=== PATIENT | female | born 1935 | race Caucasian/White ===

== ENCOUNTER 2018-01-28 19:05 | Emergency (ER) | payer MEDICARE, BC ==
[~2018-01-28] VITALS: Ht 165.1 cm; Wt 62.1 kg
[~2018-01-28 19:05] MED LIST: ALPR.5 PO; AMIO200 PO; ASPI81EC PO; ATOR20 PO; BENZ100A PO; CLOP75 PO; CYCL0.05OP; Cymbalta60 MG; DESV50 PO; DIGO.25 PO; Dazidox10 MG PO; ELIQUIS5 MG PO; FAMO20 PO; IBUP400 PO; LISI5 PO; MAGOXI400 PO; METO100ER PO; METO25ER PO; METO50ER PO; OXYACE5T PO; OXYC10TA19; PATADAY; PROM25 PO; Percocet 10-321 EACH PO; Percocet 5-3251 EACH PO; Prozac20 MG; SIMV40 PO; Ultram50 MG PO; Vitamin D2000 UNIT PO; Zofran Odt4 MG SL; Zofran Odt8 MG SL
[2018-01-28] MEDS ORDERED: Levothyroxine200 MCG (19:23)
[2018-01-28] MEDS ORDERED: TORSE20 PO (19:23)
[2018-01-28] MEDS ORDERED: FLUO10 PO (19:24)
[2018-01-28] MEDS ORDERED: POTA10T PO (19:24)
[2018-01-28 19:33] LABS: BASOPHILS ABSOLUTE AUTO 0.04 K/mm3 (0.00-0.23); BASOPHILS PERCENT AUTO 1 % (0-2); EOSINOPHILS ABSOLUTE AUTO 0.07 K/mm3 (0.00-0.68); EOSINOPHILS PERCENT AUTO 1 % (0-6); Hemoglobin 11.8 g/dL (11.5-16.0); IMMATURE GRAN ABSOLUTE AUTO 0.03 K/mm3 (0.00-0.10); IMMATURE GRAN PERCENT AUTO 0 % (0-1); LYMPHOCYTES ABSOLUTE AUTO 0.78 K/mm3 (0.84-5.20); LYMPHOCYTES PERCENT AUTO 9 % (21-46); MONOCYTES PERCENT AUTO 7 % (4-13); Mean Corpuscular HGB 33.2 pg (26.0-34.0); Mean Corpuscular HGB Conc 32.8 g/dL (31.5-36.5); Mean Corpuscular Volume 101 fL (80-100); Mean Platelet Volume 9.6 fL (9.1-12.4); NEUTROPHILS ABSOLUTE AUTO 7.12 K/mm3 (1.96-9.15); NEUTROPHILS PERCENT AUTO 83 % (41-73); Platelet Count 204 K/mm3 (150-400); RDW Standard Deviation 49.3 fL (35.1-46.3); Red Blood Cell Count 3.55 M/mm3 (3.80-5.20); White Blood Cell Count 8.64 K/mm3 (4.00-11.30)
[2018-01-28 19:46] LABS: Source, Urine Clean Catch
[2018-01-28 19:52] LABS: Bilirubin, Urine Neg (Neg); Blood, Urine 5+ (Neg); Glucose Qualitative, Urine Neg (Neg); Ketones, Urine Neg (Neg); Leukocyte Esterase, Urine 3+ (Neg); Nitrite, Urine Neg (Neg); Protein, Urine 3+ (Neg); Specific Gravity, Urine 1.015 (1.003-1.022); Urobilinogen, Urine NORM (Normal)
[2018-01-28 20:00] LABS: Albumin, Blood 3.3 g/dL (3.4-5.0); Albumin/Globulin Ratio 0.9 (0.8-1.8); Bilirubin, Total 0.8 mg/dL (0.1-1.0); Bun/Creatinine Ratio 19.5 (12.0-20.0); Calcium, Blood 8.6 mg/dL (8.5-10.1); Creatinine, Blood 1.18 mg/dL (0.40-1.00); Globulin, Blood 3.6 g/dL (2.2-4.0); Potassium, Blood 4.1 mmol/L (3.5-5.5); Total Protein, Blood 6.9 g/dL (6.4-8.2)
[2018-01-28 20:03] LABS: Appearance, Urine Cloudy (Clear); Color, Urine Yellow (P-Yellow)
[2018-01-28 20:04] LABS: Bacteria Few /hpf; Red Blood Cells, Urine 25-50 /hpf (0-2); Squamous Epithelial Cells Rare /hpf (Few); White Blood Cells, Urine TNTC /hpf (0-5)
[2018-01-28] MEDS ORDERED: Cipro500 MG PO (20:40)
[2018-01-28] MEDS ORDERED: Zofran4 MG PO (20:40)
[2018-01-29] MEDS ORDERED: HYDR1TAB94 PO (04:08)
[2018-01-29] MEDS ORDERED: CYCL0.05OP BOTHEYES ×2 (17:50→17:51)
== END 2018-01-28 22:00 | disposition home or self-care (01) ==
LOC: ER 19:05
PROVIDERS: Internal Medicine
DX: N12 Tubulo-interstitial nephritis, not specified as acute or chronic (principal); Z88.8 Allergy status to other drugs, medicaments and biological substances; Z88.5 Allergy status to narcotic agent; Z79.899 Other long term (current) drug therapy; Z79.01 Long term (current) use of anticoagulants
CPT/HCPCS: 36415; 80053; 81001; 85025; 87077; 87086; 87186; 93005; 93010; 96374; 99284-25; J1956

== ENCOUNTER 2018-01-29 01:19 | Observation (INO) | payer MEDICARE, BC ==
[~2018-01-29] VITALS: Ht 165.1 cm; Wt 63.7 kg
[~2018-01-29 01:19] MED LIST changes: +Cipro500 MG PO; +FLUO10 PO; +Levothyroxine200 MCG; +POTA10T PO; +TORSE20 PO; +Zofran4 MG PO
[2018-01-29] MEDS ORDERED: HYDR1TAB94 PO (04:08)
[2018-01-29 05:36] LABS: Bun/Creatinine Ratio 16.8 (12.0-20.0); Creatinine, Blood 1.13 mg/dL (0.40-1.00); Potassium, Blood 4.1 mmol/L (3.5-5.5)
[2018-01-29] MEDS ORDERED: CYCL0.05OP BOTHEYES ×2 (17:50→17:51)
[2018-01-30 05:31] LABS: BASOPHILS ABSOLUTE AUTO 0.03 K/mm3 (0.00-0.23); BASOPHILS PERCENT AUTO 1 % (0-2); EOSINOPHILS ABSOLUTE AUTO 0.02 K/mm3 (0.00-0.68); EOSINOPHILS PERCENT AUTO 0 % (0-6); Hematocrit 35.2 % (33.0-51.0); Hemoglobin 11.6 g/dL (11.5-16.0); IMMATURE GRAN ABSOLUTE AUTO 0.03 K/mm3 (0.00-0.10); IMMATURE GRAN PERCENT AUTO 1 % (0-1); LYMPHOCYTES ABSOLUTE AUTO 0.47 K/mm3 (0.84-5.20); LYMPHOCYTES PERCENT AUTO 8 % (21-46); MONOCYTES ABSOLUTE AUTO 0.66 K/mm3 (0.16-1.47); MONOCYTES PERCENT AUTO 11 % (4-13); Mean Corpuscular Volume 100 fL (80-100); NEUTROPHILS ABSOLUTE AUTO 4.62 K/mm3 (1.96-9.15); NEUTROPHILS PERCENT AUTO 79 % (41-73); Platelet Count 170 K/mm3 (150-400); RDW Coefficient Variation 13.2 % (11.7-14.2); RDW Standard Deviation 48.8 fL (35.1-46.3); Red Blood Cell Count 3.52 M/mm3 (3.80-5.20); White Blood Cell Count 5.83 K/mm3 (4.00-11.30)
[2018-01-30 06:00] LABS: Albumin, Blood 2.7 g/dL (3.4-5.0); Anion Gap 9 mmol/L (6-16); Blood Urea Nitrogen 15 mg/dL (8-24); Bun/Creatinine Ratio 12.1 (12.0-20.0); CO2, Blood 24 mmol/L (21-32); Chloride, Blood 102 mmol/L (98-108); Creatinine, Blood 1.24 mg/dL (0.40-1.00); Glomerular Filtration Rate 44 (60-); Glucose, Blood 104 mg/dL (70-99); Phosphorus, Blood 2.7 mg/dL (2.5-4.9); Potassium, Blood 3.4 mmol/L (3.5-5.5); Sodium, Blood 135 mmol/L (136-145)
[2018-01-31] MEDS ORDERED: LEVSOD100 (10:39)
== END 2018-01-31 11:19 | disposition home or self-care (01) ==
LOC: ER 01:19 → MEDS 01:48 → ENPENDDIS 01-31 09:42 → MEDS 01-31 11:19
PROVIDERS: Family Medicine; Internal Medicine
DX: N12 Tubulo-interstitial nephritis, not specified as acute or chronic (principal); E87.2 Acidosis; E87.1 Hypo-osmolality and hyponatremia; E87.6 Hypokalemia; K21.9 Gastro-esophageal reflux disease without esophagitis; I48.91 Unspecified atrial fibrillation; M54.5 Low back pain; G89.29 Other chronic pain; I25.10 Atherosclerotic heart disease of native coronary artery without angina pectoris; I12.9 Hypertensive chronic kidney disease with stage 1 through stage 4 chronic kidney disease, or unspecified chronic kidney disease; N18.3 Chronic kidney disease, stage 3 (moderate); M19.90 Unspecified osteoarthritis, unspecified site; E03.9 Hypothyroidism, unspecified; F32.9 Major depressive disorder, single episode, unspecified; Z98.61 Coronary angioplasty status; Z79.899 Other long term (current) drug therapy; Z88.5 Allergy status to narcotic agent; Z88.8 Allergy status to other drugs, medicaments and biological substances; Z79.01 Long term (current) use of anticoagulants
CPT/HCPCS: 36415; 76770; 80048; 80069; 85025; 96361; 96365; 96366; 96375; 99284-25; G0378; J1956; J2405; J7030

== ENCOUNTER 2018-09-23 04:03 | Emergency (ER) | payer MEDICARE, BC ==
[~2018-09-23] VITALS: Ht 162.6 cm; Wt 62.6 kg
[~2018-09-23 04:03] MED LIST changes: +CYCL0.05OP BOTHEYES; +HYDR1TAB94 PO; +LEVSOD100
== END 2018-09-23 05:05 | disposition home or self-care (01) ==
LOC: ER 04:03
DX: S80.11XA Contusion of right lower leg, initial encounter (principal); W18.30XA Fall on same level, unspecified, initial encounter; Z88.8 Allergy status to other drugs, medicaments and biological substances; Z88.5 Allergy status to narcotic agent; Z79.899 Other long term (current) drug therapy; I48.91 Unspecified atrial fibrillation; I12.9 Hypertensive chronic kidney disease with stage 1 through stage 4 chronic kidney disease, or unspecified chronic kidney disease; N18.3 Chronic kidney disease, stage 3 (moderate); E03.9 Hypothyroidism, unspecified; F32.9 Major depressive disorder, single episode, unspecified
CPT/HCPCS: 73562-RT; 73610; 99283-25; A9270; A9270-GY

== ENCOUNTER 2018-11-08 15:35 | Inpatient (IN) | payer MEDICARE, BC ==
[~2018-11-08] VITALS: Ht 165.1 cm; Wt 62.5 kg
[~2018-11-08 15:35] MED LIST changes: -AMIO200 PO; +AMIODARONE HCL100 MG PO; -ATOR20 PO; -FLUO10 PO; +K-Dur 20 meq T20 MEQ PO; -LEVSOD100; +LEVSOD75 PO; +Lipitor20 MG PO; -POTA10T PO; +Prozac20 MG PO
[2018-11-08 15:57] LABS: BASOPHILS ABSOLUTE AUTO 0.04 K/mm3 (0.00-0.23); BASOPHILS PERCENT AUTO 0 % (0-2); EOSINOPHILS ABSOLUTE AUTO 0.06 K/mm3 (0.00-0.68); EOSINOPHILS PERCENT AUTO 1 % (0-6); Hematocrit 33.5 % (33.0-51.0); Hemoglobin 11.1 g/dL (11.5-16.0); IMMATURE GRAN ABSOLUTE AUTO 0.12 K/mm3 (0.00-0.10); IMMATURE GRAN PERCENT AUTO 1 % (0-1); LYMPHOCYTES ABSOLUTE AUTO 1.13 K/mm3 (0.84-5.20); LYMPHOCYTES PERCENT AUTO 9 % (21-46); MONOCYTES ABSOLUTE AUTO 0.95 K/mm3 (0.16-1.47); MONOCYTES PERCENT AUTO 8 % (4-13); Mean Corpuscular HGB 31.5 pg (26.0-34.0); Mean Corpuscular HGB Conc 33.1 g/dL (31.5-36.5); Mean Corpuscular Volume 95 fL (80-100); Mean Platelet Volume 9.3 fL (9.1-12.4); NEUTROPHILS ABSOLUTE AUTO 10.02 K/mm3 (1.96-9.15); NEUTROPHILS PERCENT AUTO 81 % (41-73); Platelet Count 556 K/mm3 (150-400); RDW Coefficient Variation 13.2 % (11.7-14.2); Red Blood Cell Count 3.52 M/mm3 (3.80-5.20); White Blood Cell Count 12.32 K/mm3 (4.00-11.30)
[2018-11-08 16:05] LABS: Source, Urine Catheter
[2018-11-08 16:20] LABS: Alanine Aminotransfer (ALT/SGP 40 U/L (12-78); Albumin, Blood 2.2 g/dL (3.4-5.0); Albumin/Globulin Ratio 0.6 (0.8-1.8); Alk Phos 184 U/L (50-136); Anion Gap 6 mmol/L (6-16); Aspartate Aminotrans (AST/SGOT 85 U/L (12-37); Blood Urea Nitrogen 10 mg/dL (8-24); Bun/Creatinine Ratio 11.6 (12.0-20.0); CO2, Blood 28 mmol/L (21-32); Calcium, Blood 8.4 mg/dL (8.5-10.1); Chloride, Blood 96 mmol/L (98-108); Creatinine, Blood 0.86 mg/dL (0.40-1.00); Globulin, Blood 3.9 g/dL (2.2-4.0); Glomerular Filtration Rate >60 (60-); Glucose, Blood 83 mg/dL (70-99); Potassium, Blood 4.2 mmol/L (3.5-5.5); Sodium, Blood 130 mmol/L (136-145); Total Protein, Blood 6.1 g/dL (6.4-8.2)
[2018-11-08 16:26] LABS: Bilirubin, Urine Neg (Neg); Blood, Urine 1+ (Neg); Glucose Qualitative, Urine Neg (Neg); Ketones, Urine 2+ (Neg); Leukocyte Esterase, Urine 3+ (Neg); Nitrite, Urine Neg (Neg); Protein, Urine 1+ (Neg); Specific Gravity, Urine 1.005 (1.003-1.022); Urobilinogen, Urine 4+ (Normal)
[2018-11-08 16:43] LABS: Appearance, Urine Hazy (Clear); Color, Urine Yellow (P-Yellow)
[2018-11-08 16:45] LABS: Bacteria Many /hpf; Squamous Epithelial Cells Mod /hpf (Few); White Blood Cells, Urine 25-50 /hpf (0-5)
[2018-11-08 20:15] LABS: International Normalized Ratio 1.22; Prothrombin Time Results 12.7 Sec (9.7-11.5)
[2018-11-08] MEDS ORDERED: Percocet 7.5-31 EACH PO (20:46)
[2018-11-09 05:28] LABS: BASOPHILS ABSOLUTE AUTO 0.07 K/mm3 (0.00-0.23); BASOPHILS PERCENT AUTO 1 % (0-2); EOSINOPHILS ABSOLUTE AUTO 0.17 K/mm3 (0.00-0.68); EOSINOPHILS PERCENT AUTO 1 % (0-6); Hematocrit 34.3 % (33.0-51.0); Hemoglobin 11.2 g/dL (11.5-16.0); IMMATURE GRAN PERCENT AUTO 1 % (0-1); LYMPHOCYTES ABSOLUTE AUTO 1.38 K/mm3 (0.84-5.20); LYMPHOCYTES PERCENT AUTO 11 % (21-46); MONOCYTES ABSOLUTE AUTO 1.18 K/mm3 (0.16-1.47); MONOCYTES PERCENT AUTO 10 % (4-13); Mean Corpuscular HGB 32.1 pg (26.0-34.0); Mean Corpuscular HGB Conc 32.7 g/dL (31.5-36.5); Mean Platelet Volume 9.3 fL (9.1-12.4); NEUTROPHILS PERCENT AUTO 76 % (41-73); Platelet Count 589 K/mm3 (150-400); RDW Coefficient Variation 13.2 % (11.7-14.2); RDW Standard Deviation 47.1 fL (35.1-46.3); Red Blood Cell Count 3.49 M/mm3 (3.80-5.20)
[2018-11-09 05:31] LABS: Mean Corpuscular Volume 98 fL (80-100)
--- NOTE | 2018-11-09 05:35 | NUR ---
NOC SHIFT SUMMARY PT IS IRRITABLE THOUGH LARGELY COOPERATIVE WITH CARE. ADMITTED FOR BILAT PNEUMONIA. LUNG SOUNDS DIMINISHED WITH CRACKLES IN BASES. ON 2LNC. VSS. VERY WEAK WITH AMBULATING AND NEEDS ASSISTANCE WITH TOILETING. NOT TIPICALLY ON OXYGEN AT HOME. LIVES AT [facility] WITH . MEDICATED FOR PAIN PER EMAR TO GOOD EFFECT. CURRENTLY APPEARS IN NO ACUTE DISTRESS. WILL CONTINUE TO MONITOR.
[2018-11-09 05:44] LABS: Anion Gap 8 mmol/L (6-16); Blood Urea Nitrogen 9 mg/dL (8-24); Bun/Creatinine Ratio 11.5 (12.0-20.0); CO2, Blood 24 mmol/L (21-32); Calcium, Blood 7.8 mg/dL (8.5-10.1); Chloride, Blood 103 mmol/L (98-108); Creatinine, Blood 0.79 mg/dL (0.40-1.00); Glomerular Filtration Rate >60 (60-); Glucose, Blood 80 mg/dL (70-99); Potassium, Blood 3.9 mmol/L (3.5-5.5); Sodium, Blood 135 mmol/L (136-145)
[2018-11-09] MEDS ORDERED: TORSE20 PO (16:10)
--- NOTE | 2018-11-09 17:46 | NUR ---
PT AOX4 COOPERATIVE OF CARE. PT HAS BEEN HAVING SOB WITH EXCERTION TODAY. THEN LATER IN THE DAY PT STATED SHE NEEDED HER DIURETIC. REVIEWED MEDS WITH COMPAIRED LIST TO EMAR. PT NEEDED HER TORESMIDE ON THE LIST. NOTIFIED DR MC AND LEFT MESSAGE OF FINDINGS. PT THEN HAS A SOB EPISODE AND RT WAS CALLED. O2 SAT WAS 82% RT GAVE BREATHING TREATMENT AND INCREASED O2 TO 5L. PT WAS THEN UP TO 92%. TORSEMIDE GIVEN WILL CONTINUE TO MONITOR.
--- NOTE | 2018-11-10 04:07 | NUR ---
NOC SHIFT SUMMARY PT ADMITTED FOR SEPSIS SECONDARY TO PNEUMONIA. SHE IS IRRITABLE THOUGH COOPERATIVE WITH CARE. AAOX4. RESP EVEN AND UNLABORED AT REST THOUGH SHE IS QUITE ACTIVITY INTOLERANT. MUST CATCH HER BREATH AT BED SIDE WHEN BEING HELPED UP TO THE COMODE. ON 2LNC NORMALLY NOT ON O2 AT HOME. PRESENTLY APPEARS TO BE SLEEPING AND IN NO ACUTE DISTRESS. WILL CONTINUE TO MONITOR.
[2018-11-10 05:07] LABS: BASOPHILS ABSOLUTE AUTO 0.06 K/mm3 (0.00-0.23); BASOPHILS PERCENT AUTO 1 % (0-2); EOSINOPHILS ABSOLUTE AUTO 0.26 K/mm3 (0.00-0.68); EOSINOPHILS PERCENT AUTO 3 % (0-6); Hematocrit 33.9 % (33.0-51.0); Hemoglobin 10.7 g/dL (11.5-16.0); IMMATURE GRAN ABSOLUTE AUTO 0.09 K/mm3 (0.00-0.10); IMMATURE GRAN PERCENT AUTO 1 % (0-1); LYMPHOCYTES ABSOLUTE AUTO 1.12 K/mm3 (0.84-5.20); LYMPHOCYTES PERCENT AUTO 11 % (21-46); MONOCYTES PERCENT AUTO 10 % (4-13); Mean Corpuscular HGB 31.6 pg (26.0-34.0); Mean Corpuscular HGB Conc 31.6 g/dL (31.5-36.5); Mean Corpuscular Volume 100 fL (80-100); Mean Platelet Volume 9.3 fL (9.1-12.4); NEUTROPHILS ABSOLUTE AUTO 7.86 K/mm3 (1.96-9.15); NEUTROPHILS PERCENT AUTO 76 % (41-73); Platelet Count 552 K/mm3 (150-400); RDW Coefficient Variation 13.3 % (11.7-14.2); RDW Standard Deviation 49.1 fL (35.1-46.3); Red Blood Cell Count 3.39 M/mm3 (3.80-5.20); White Blood Cell Count 10.39 K/mm3 (4.00-11.30)
[2018-11-10 05:39] LABS: Alanine Aminotransfer (ALT/SGP 32 U/L (12-78); Albumin, Blood 2.1 g/dL (3.4-5.0); Albumin/Globulin Ratio 0.6 (0.8-1.8); Alk Phos 169 U/L (50-136); Anion Gap 8 mmol/L (6-16); Aspartate Aminotrans (AST/SGOT 56 U/L (12-37); Bilirubin, Total 0.5 mg/dL (0.1-1.0); Blood Urea Nitrogen 9 mg/dL (8-24); Bun/Creatinine Ratio 10.6 (12.0-20.0); CO2, Blood 26 mmol/L (21-32); Calcium, Blood 7.8 mg/dL (8.5-10.1); Chloride, Blood 102 mmol/L (98-108); Creatinine, Blood 0.85 mg/dL (0.40-1.00); Globulin, Blood 3.7 g/dL (2.2-4.0); Glomerular Filtration Rate >60 (60-); Glucose, Blood 100 mg/dL (70-99); Potassium, Blood 3.6 mmol/L (3.5-5.5); Sodium, Blood 136 mmol/L (136-145); Total Protein, Blood 5.8 g/dL (6.4-8.2)
--- NOTE | 2018-11-10 17:34 | NUR ---
PT AOX4 AND COOPERATIVE OF CARE. PT HAS BEEN DOING BETTER TODAY. STILL GETTING SOB WITH MUCH EXCERTION. PT APPEARS TO BE FEELING BETTER. PT TALKING AND PLEASANT TODAY. DENIES ANY NEED FOR PAIN PILLS. WILL CONTINUE TO MONITOR.
--- NOTE | 2018-11-11 04:17 | NUR ---
NOC SHIFT SUMMARY PT ADMITTED FOR BILAT PNEUMONIA WITH SEPSIS. URINE CX SHOWES KLEBSIELLA UTI. SHE IS MUCH MORE PLEASANT WITH CARE THIS NIGHT. STILL ON 2LNC. TOOK A MELATONIN THIS EVENING AND FELL TO SLEEP. HAS SLEPT MUCH OF NIGHT. TREATED PER EMAR FOR PAIN. VSS. NO ACUTE CHANGES NOTED. THIS SHIFT. PT APPEARS IN NO ACUTE DISTRESS. WILL CONTINUE TO MONITOR.
[2018-11-11 05:56] LABS: Anion Gap 8 mmol/L (6-16); Blood Urea Nitrogen 11 mg/dL (8-24); Bun/Creatinine Ratio 12.3 (12.0-20.0); CO2, Blood 30 mmol/L (21-32); Calcium, Blood 7.4 mg/dL (8.5-10.1); Chloride, Blood 98 mmol/L (98-108); Creatinine, Blood 0.89 mg/dL (0.40-1.00); Glomerular Filtration Rate >60 (60-); Glucose, Blood 95 mg/dL (70-99); Phosphorus, Blood 3.8 mg/dL (2.5-4.9); Potassium, Blood 3.3 mmol/L (3.5-5.5); Sodium, Blood 136 mmol/L (136-145)
--- NOTE | 2018-11-11 14:15 | NUR ---
PT REQUIRING 1L PT DESATS TO MID 80S ON RA. PT ON 1L. PT NOW SATING IN THE 90S. WILL CONTINUE TO MONITOR.
--- NOTE | 2018-11-11 18:10 | NUR ---
SHIFT SUMMARY PROZAC ORDERED PER PT REQUEST. PT STATED IT IS TAKEN AT HOME. DR. MC ORDERED FOR PT. PT TITRATED TO 1L O2 VIA NC. PT DESATS TO MID 80S ON RA. NO OTHER CHANGES IN ASSESSMENT AT THIS TIME. VSS. WILL CONTINUE TO MONITOR UNTIL TURNOVER IS COMPLETE.
--- NOTE | 2018-11-12 04:56 | NUR ---
LOG RAFT WORKER SUMMARY NO ACUTE CHANGES THIS SHIFT. PT AAOX4 AND PLEASANT. STANDBY ASSIST TO BSC. PT REMAINS ON 1L O2 VIA NC. ENCOURAGED PT TO USE FLUTTER VALVE TO HELP HER COUGH UP SECRETIONS. VSS, WILL CONTINUE TO MONITOR.
[2018-11-12 05:39] LABS: Albumin, Blood 2.1 g/dL (3.4-5.0); Anion Gap 7 mmol/L (6-16); Blood Urea Nitrogen 14 mg/dL (8-24); Bun/Creatinine Ratio 14.8 (12.0-20.0); CO2, Blood 29 mmol/L (21-32); Calcium, Blood 7.8 mg/dL (8.5-10.1); Chloride, Blood 100 mmol/L (98-108); Creatinine, Blood 0.94 mg/dL (0.40-1.00); Glomerular Filtration Rate >60 (60-); Glucose, Blood 87 mg/dL (70-99); Phosphorus, Blood 3.9 mg/dL (2.5-4.9); Potassium, Blood 4.2 mmol/L (3.5-5.5); Sodium, Blood 136 mmol/L (136-145)
[2018-11-12] MEDS ORDERED: MELATONIN5 M1 PO (16:13)
[2018-11-12] MEDS ORDERED: ALBU90OI INH (16:14)
[2018-11-12] MEDS ORDERED: HIGH POTENCY P1 EACH PO (16:15)
[2018-11-12] MEDS ORDERED: CEFU500T30 PO (16:16)
[2018-11-12] MEDS ORDERED: AZIT500 PO (16:16)
--- NOTE | 2018-11-12 17:02 | NUR ---
PT DISCHARGED PT DISCHARGED AT 1700. PT IN STABLE CONTITION WITH VSS. PT INSTRUCTED ON DC INSTRUCTIONS & FOLLOW UP APPOINTMENTS. PT WHEELED OUT & DIRVEN HOME BY TRANSPORT. PT ON RA PRIOR TO DC & SATING IN THE 90S. NO OTHER CHANGES PRIOR TO DC.
[2018-11-13] MEDS ORDERED: DULO30 PO (18:51)
[2018-11-13] MEDS ORDERED: ELIQUIS5 M2 PO (18:53)
== END 2018-11-12 17:02 | disposition home or self-care (01) | DRG 871 ==
LOC: ER 15:35 → MEDS 17:55
PROVIDERS: Emergency Medicine; Internal Medicine; Physician Assistant; ADMIT Hospitalist
DX: A41.89 Other specified sepsis (principal); J96.01 Acute respiratory failure with hypoxia; J18.9 Pneumonia, unspecified organism; N39.0 Urinary tract infection, site not specified; E87.1 Hypo-osmolality and hyponatremia; R65.20 Severe sepsis without septic shock; B96.1 Klebsiella pneumoniae [K. pneumoniae] as the cause of diseases classified elsewhere; R74.0 Nonspecific elevation of levels of transaminase and lactic acid dehydrogenase [LDH]; E87.6 Hypokalemia; E03.9 Hypothyroidism, unspecified; E78.5 Hyperlipidemia, unspecified; I48.0 Paroxysmal atrial fibrillation; G89.4 Chronic pain syndrome; I10 Essential (primary) hypertension; I25.10 Atherosclerotic heart disease of native coronary artery without angina pectoris; I25.2 Old myocardial infarction; Z87.891 Personal history of nicotine dependence; Z88.8 Allergy status to other drugs, medicaments and biological substances; Z79.899 Other long term (current) drug therapy; Z95.5 Presence of coronary angioplasty implant and graft
CPT/HCPCS: 36415; 71046; 80048; 80053; 80069; 81001; 83605; 83880; 84484; 85025; 85610; 85730; 87040; 87077; 87086; 87186; 93005; 93010; 94640; 94667; 94760; 94761; 96365; 96375; 98960; 99285-25; A9270-GY; J0456; J0696; J2405; J7030; J7050; P9612

== ENCOUNTER 2018-11-13 16:41 | Inpatient (IN) | payer MEDICARE, BC ==
[~2018-11-13] VITALS: Ht 165.1 cm; Wt 63.0 kg
[~2018-11-13 16:41] MED LIST changes: +ALBU90OI INH; +AZIT500 PO; +CEFU500T30 PO; +HIGH POTENCY P1 EACH PO; +MELATONIN5 M1 PO; +Percocet 7.5-31 EACH PO
[2018-11-13 17:23] LABS: BASOPHILS ABSOLUTE AUTO 0.09 K/mm3 (0.00-0.23); BASOPHILS PERCENT AUTO 1 % (0-2); EOSINOPHILS ABSOLUTE AUTO 0.16 K/mm3 (0.00-0.68); EOSINOPHILS PERCENT AUTO 1 % (0-6); Hematocrit 36.1 % (33.0-51.0); Hemoglobin 11.7 g/dL (11.5-16.0); IMMATURE GRAN ABSOLUTE AUTO 0.06 K/mm3 (0.00-0.10); IMMATURE GRAN PERCENT AUTO 0 % (0-1); LYMPHOCYTES ABSOLUTE AUTO 1.38 K/mm3 (0.84-5.20); LYMPHOCYTES PERCENT AUTO 9 % (21-46); MONOCYTES ABSOLUTE AUTO 0.85 K/mm3 (0.16-1.47); MONOCYTES PERCENT AUTO 6 % (4-13); Mean Corpuscular HGB 31.8 pg (26.0-34.0); Mean Corpuscular HGB Conc 32.4 g/dL (31.5-36.5); Mean Corpuscular Volume 98 fL (80-100); Mean Platelet Volume 9.2 fL (9.1-12.4); NEUTROPHILS ABSOLUTE AUTO 12.86 K/mm3 (1.96-9.15); NEUTROPHILS PERCENT AUTO 84 % (41-73); Platelet Count 464 K/mm3 (150-400); RDW Coefficient Variation 13.2 % (11.7-14.2); RDW Standard Deviation 47.8 fL (35.1-46.3); Red Blood Cell Count 3.68 M/mm3 (3.80-5.20)
[2018-11-13 17:49] LABS: Alanine Aminotransfer (ALT/SGP 40 U/L (12-78); Albumin, Blood 2.5 g/dL (3.4-5.0); Albumin/Globulin Ratio 0.6 (0.8-1.8); Alk Phos 188 U/L (50-136); Anion Gap 5 mmol/L (6-16); Aspartate Aminotrans (AST/SGOT 61 U/L (12-37); Bilirubin, Total 0.5 mg/dL (0.1-1.0); Blood Urea Nitrogen 17 mg/dL (8-24); Bun/Creatinine Ratio 18.1 (12.0-20.0); CO2, Blood 32 mmol/L (21-32); Calcium, Blood 8.6 mg/dL (8.5-10.1); Chloride, Blood 97 mmol/L (98-108); Creatinine, Blood 0.94 mg/dL (0.40-1.00); Globulin, Blood 4.1 g/dL (2.2-4.0); Glomerular Filtration Rate >60 (60-); Glucose, Blood 136 mg/dL (70-99); Potassium, Blood 3.6 mmol/L (3.5-5.5); Sodium, Blood 134 mmol/L (136-145); Total Protein, Blood 6.6 g/dL (6.4-8.2)
[2018-11-13] MEDS ORDERED: DULO30 PO (18:51)
[2018-11-13] MEDS ORDERED: ELIQUIS5 M2 PO (18:53)
--- NOTE | 2018-11-13 23:00 | NUR ---
Pt arrived to PCU at 2206 via gurney, slide over to PCU bed with slider sheet, then stood at bedside with RN as OPTICAL COATING TECHNICIAN placed egg crate on bed. Pt c/o mild dizziness with standing, resolved and no continued sx of dizziness. Pt coherant, alert, oriented x4. Pt breathing easy and unlabored on 4L with o2 saturations at 93%. Baseline RA. Pt c/o pain, only tylenol ordered. Pt refused tylenol states "I take percocet at home". Provider called and Percocet ordered per Carlitos Hernandez, melatonin ordered per Carlitos Hernandez, Amioderone admnistration changed from 2100 to 0900 per Carlitos Hernandez, per home medication regimen. Will continue to monitor and update. See Admission assessment for detailed assessment.
[2018-11-14 03:52] LABS: Source, Urine Catheter
[2018-11-14 03:54] LABS: Bilirubin, Urine Neg (Neg); Blood, Urine Neg (Neg); Glucose Qualitative, Urine Neg (Neg); Ketones, Urine Neg (Neg); Leukocyte Esterase, Urine Neg (Neg); Nitrite, Urine Neg (Neg); Protein, Urine Neg (Neg); Specific Gravity, Urine 1.005 (1.003-1.022); Urobilinogen, Urine NORM (Normal)
[2018-11-14 03:56] LABS: BASOPHILS ABSOLUTE AUTO 0.09 K/mm3 (0.00-0.23); BASOPHILS PERCENT AUTO 1 % (0-2); EOSINOPHILS PERCENT AUTO 2 % (0-6); Hematocrit 34.4 % (33.0-51.0); Hemoglobin 10.9 g/dL (11.5-16.0); IMMATURE GRAN ABSOLUTE AUTO 0.08 K/mm3 (0.00-0.10); IMMATURE GRAN PERCENT AUTO 1 % (0-1); LYMPHOCYTES PERCENT AUTO 16 % (21-46); MONOCYTES ABSOLUTE AUTO 0.77 K/mm3 (0.16-1.47); MONOCYTES PERCENT AUTO 7 % (4-13); Mean Corpuscular HGB 31.3 pg (26.0-34.0); Mean Corpuscular HGB Conc 31.7 g/dL (31.5-36.5); Mean Corpuscular Volume 99 fL (80-100); Mean Platelet Volume 9.4 fL (9.1-12.4); NEUTROPHILS ABSOLUTE AUTO 8.62 K/mm3 (1.96-9.15); NEUTROPHILS PERCENT AUTO 74 % (41-73); Platelet Count 438 K/mm3 (150-400); RDW Coefficient Variation 13.3 % (11.7-14.2); RDW Standard Deviation 48.5 fL (35.1-46.3); Red Blood Cell Count 3.48 M/mm3 (3.80-5.20); White Blood Cell Count 11.66 K/mm3 (4.00-11.30)
[2018-11-14 03:59] LABS: Appearance, Urine Clear (Clear); Color, Urine Pale Yellow (P-Yellow)
[2018-11-14 04:16] LABS: Alanine Aminotransfer (ALT/SGP 33 U/L (12-78); Albumin, Blood 2.2 g/dL (3.4-5.0); Albumin/Globulin Ratio 0.6 (0.8-1.8); Alk Phos 168 U/L (50-136); Anion Gap 7 mmol/L (6-16); Aspartate Aminotrans (AST/SGOT 51 U/L (12-37); Bilirubin, Total 0.5 mg/dL (0.1-1.0); Blood Urea Nitrogen 13 mg/dL (8-24); Bun/Creatinine Ratio 14.1 (12.0-20.0); CO2, Blood 31 mmol/L (21-32); Calcium, Blood 8.1 mg/dL (8.5-10.1); Chloride, Blood 100 mmol/L (98-108); Creatinine, Blood 0.92 mg/dL (0.40-1.00); Glomerular Filtration Rate >60 (60-); Glucose, Blood 99 mg/dL (70-99); Magnesium, Blood 1.9 mg/dL (1.6-2.4); Potassium, Blood 3.9 mmol/L (3.5-5.5); Sodium, Blood 138 mmol/L (136-145); Total Protein, Blood 6.2 g/dL (6.4-8.2)
--- NOTE | 2018-11-14 05:15 | NUR ---
ASSUMPTION OF CARE RECIEVED REPORT FROM MING LEMUS. ASSUMED CARE OF THIS PATIENT AT THIS TIME.
--- NOTE | 2018-11-14 07:42 | NUR ---
SHIFT SUMMARY PATIENT PLEASENT AND COOPERATIVE THIS MORNING. PATIENT UP TO USE THE BSC WITH SBA AND FWW. PATIENT DID DESTAT INTO THE 80'S AND TOOK SEVERAL MINUTES TO RECOVER. PATIENT ON 3L O2 AT THE TIME BUT HER O2 WAS INCREASED TO 4L. PATIENT APPEARED TO NAP ON AND OFF THROUGHOUT THE REST OF THE MORNING. REPORT GIVEN TO ONCOMING RN.
--- NOTE | 2018-11-14 08:41 | NUR ---
LATE ENTRY PT SITTING ON SIDE OF BED EATING BREAKFAST. PT A&Ox4. IRRITABLE BUT COOPERATIVE WITH CARE. SPO2 AT 94-95% ON 4L O2 VIA NC AT REST, UP TO BATHROOM INCREASED TO 6L O2. PT SOB WITH EXERTION, FINE CRACKLES IN BASES. UP TO BATHROOM WITH SBA. PT REPROTS CHRONIC BACK PAIN 11/06, MEDICATED x1 WITH PERCOCET. PT DENIES NAUSEA. PT REFUSING TO TAKE TORSEMIDE AND POTASSIUM, STATES SHE DOES NOT TAKE IT AT HOME UNLESS SHE HAS SWELLING "BECAUSE IT MAKES ME MISERABLE." ELEVATED BP NOTED. WILL CONTINUE TO MONITOR.
--- NOTE | 2018-11-14 14:30 | NUR ---
WHEN DISCUSSING WITH THE PATIENT HER PREVIOUS HOSPITAL STAY, SHE STATES THAT HER MEDICATIONS, ANTIBIOTCS AND INHALER, HAD NOT ARRIVED FROM THE PHARMACY.
--- NOTE | 2018-11-14 15:46 | NUR ---
NOTIFIED DR MC OF REFUSAL FOR DIURETIC AND POTASSIUM, NO NEW ORDER, CONTINUE TO EDUCATED AND MONITOR PT.
--- NOTE | 2018-11-14 18:18 | NUR ---
SHIFT SUMMARY PT A&Ox4. COOPERATIVE WITH CARE. PT RESTING IN BED DURING SHFIT. UP ON SIDE OF BED FOR MEALS. PT SBA TO BATHROOM. PT ON 4L O2 VIA NC AT REST, 6L O2 VIA NC WITH ACTIVITY, PT DESATURATION WITH ACTIVITY, TAKES A COUPLE MINUTES TO RECOVER. PT REPORTS CHRONIC BACK PAIN, MEDICATED x2 WITH PERCOCET T/O SHIFT. PT DENIES NAUSEA, REPORTS THAT SHE DOES NOT EAT THAT MUCH AT HOME. PT ELEVATED BP NOTED, TRENDING DOWN. PT REFUSING DIURETICS, AWARE, EDUCATED PT ON NEED FOR MEDICATIONS AND WILL CONTINUE TO ENCOURAGE PT TO TAKE. OTHER VSS. NO OTHER ACUTE CHANGES NOTED DURING SHIFT. WILL CONTINUE TO MONITOR UNITL RPEORT GIVEN TO ONCOMING RN.
--- NOTE | 2018-11-14 22:00 | NUR ---
Assumed care of pt at approx 1915. Pt presents sitting in bed, eyes open. Pt with VSS, alert and oriented, conversing appropriately. Pt on 5L hiflow NC with sats between 97-100%. Pt titrated down to 4L NC with sats >94%. Pt up to BSC this shift for attempted BM, pt states she feels constipated. No Bowel care orders in eMAR at this time. Last BM was 11/12 per pt. This RN will speak with MD regarding bowel prep. See shift assessment for detailed systems assessment. Will continue to monitor and update.
--- NOTE | 2018-11-15 00:17 | NUR ---
BSC DESATURATIONS NOTED DOWN TO 85% ON 5l HIFLOW NC WHILE ON BSC. O2 INCREASED TO 6L WHILE OUT OF BED.
--- NOTE | 2018-11-15 06:33 | NUR ---
Shift Summary No acute changes this shift. Pt remains alert and oriented, VSS, SBA at BS with desaturations as noted in previous entry note, pt remains on 5L hiflow NC. Pt Denies chest pain, pressure, denies SOB with rest. No changes from initial shift assessment. Pt breathing easy and unlabored. Converses appropriately, uses call light appropriately. Slept throughout this shift, woke up for vitals and trips to BSC. Will continue to monitor until end of shift and handoff is given to oncoming RN.
--- NOTE | 2018-11-15 07:48 | NUR ---
pt laying in bed awake a/ox3, pleasant and cooperative with care, follows commands well, state pain is ok at this time, lungs are clear with some fine crackles in bases, with a occ wheeze with cough, has a nonproductive cough, is currently on 4 liters, becomes sob with activity, hrr, tele in place running sr sb at 59 per monitor, see strip, no edema noted, ppp+2, cap refill <3sec, vs stable, afebrile, iv site is clear and patent, btx4, abd flat soft nontender, voids without diff via bsc, skin c/w/d, derek russell, call light in reach.
[2018-11-15 09:06] LABS: BASOPHILS ABSOLUTE AUTO 0.09 K/mm3 (0.00-0.23); BASOPHILS PERCENT AUTO 1 % (0-2); EOSINOPHILS ABSOLUTE AUTO 0.63 K/mm3 (0.00-0.68); EOSINOPHILS PERCENT AUTO 6 % (0-6); Hemoglobin 11.5 g/dL (11.5-16.0); IMMATURE GRAN ABSOLUTE AUTO 0.06 K/mm3 (0.00-0.10); IMMATURE GRAN PERCENT AUTO 1 % (0-1); LYMPHOCYTES ABSOLUTE AUTO 1.46 K/mm3 (0.84-5.20); LYMPHOCYTES PERCENT AUTO 14 % (21-46); MONOCYTES ABSOLUTE AUTO 0.97 K/mm3 (0.16-1.47); MONOCYTES PERCENT AUTO 9 % (4-13); Mean Corpuscular HGB 31.5 pg (26.0-34.0); Mean Corpuscular HGB Conc 31.9 g/dL (31.5-36.5); Mean Corpuscular Volume 99 fL (80-100); Mean Platelet Volume 9.5 fL (9.1-12.4); NEUTROPHILS ABSOLUTE AUTO 7.39 K/mm3 (1.96-9.15); NEUTROPHILS PERCENT AUTO 70 % (41-73); Platelet Count 442 K/mm3 (150-400); RDW Coefficient Variation 13.3 % (11.7-14.2); RDW Standard Deviation 48.4 fL (35.1-46.3); Red Blood Cell Count 3.65 M/mm3 (3.80-5.20)
[2018-11-15 09:24] LABS: Albumin, Blood 2.3 g/dL (3.4-5.0); Anion Gap 7 mmol/L (6-16); Blood Urea Nitrogen 14 mg/dL (8-24); Bun/Creatinine Ratio 17.7 (12.0-20.0); CO2, Blood 29 mmol/L (21-32); Calcium, Blood 8.3 mg/dL (8.5-10.1); Chloride, Blood 100 mmol/L (98-108); Creatinine, Blood 0.79 mg/dL (0.40-1.00); Glomerular Filtration Rate >60 (60-); Glucose, Blood 129 mg/dL (70-99); Phosphorus, Blood 2.8 mg/dL (2.5-4.9); Potassium, Blood 3.9 mmol/L (3.5-5.5); Sodium, Blood 136 mmol/L (136-145)
--- NOTE | 2018-11-15 13:30 | NUR ---
pt resting in bed watching tv. no complaints or needs at this time. call light in reach.
--- NOTE | 2018-11-15 18:20 | NUR ---
pt had an uneventful day, does get dyspnic with exertion, medicated once for pain, no acute changes, state she can't tell if she is breathing better or not, call light in reach.
--- NOTE | 2018-11-16 00:50 | NUR ---
PATIENT UP TO THE BATHROOM ON 4L. PATIENT BECAME VERY SHORT OF BREATH OXYGEN SATURATION DOWN TO 73%. PATIENT TURNED UP TO 6L AND CAME UP TO MID 80'S STRUGGLING TO RECOVER FULLY. PATIENT TOOK MORE THAN TEN MINUTES TO FEEL LIKE SHE WAS STARTING TO CATCH HER BREATH BUT WAS ONLY UP TO 87-88%. PATIENT RECIEVED BREATHING TREATMENT.
--- NOTE | 2018-11-16 06:29 | NUR ---
PATIENT CONTINUES TO HAVE ACTIVITY INTOLARANCE. PATIENT NOW USING THE COMMODE INSTEAD OF WALKING TO THE BATHROOM DUE TO HOW LOW OXYGEN WOULD GO. PATIENT CONTINUES TO HAVE DROPS INTO 70-80'S WITH OXYGEN ON WITH ACTIVITY. PATIENT TAKING 5-10 MINUTES TO RECOVER. PATIENT IS REQUESTING TO SEE A PULMONLOGIST. CONTINUES TO HAVE CHRONIC BACK PAIN, MANAGED BY PRN'S.
--- NOTE | 2018-11-16 08:00 | NUR ---
pt laying in bed states she has a very rough night, is breathing worse, she was on 4 liters 02 via n/c yesterday, today is on 6 but after getting her up to bsc she had to be turned up to 9 via high flow cannula and took a long time to recover, she has a nonproductive cough, she reports she would like to see a lung Dr. this was relayed to Dr. Sarabia. CT of her chest was ordered will be going for that shortly. lungs are clear in upper filds, dim and fine crackles in bases, resp even and unlabored at rest, but with any activity at all she becomes dyspnic and sats drop to the 70's, hrr, tele in place running sr per monitor, see strip, no edema noted, ppp+2, cap refill <3 sec, vs stable, afebrile, iv site to rfa is clear and patent, btx4, abd flat soft nontender, voids without diff, skin frail but intact, maew, general weakness uses a walker to ambulate, with one person assist to bsc, was going to bathroom, but is unable to tolerate that at this time, derek, call light in reach.
[2018-11-16 10:05] LABS: PCO2 Arterial 35.9 mmHg (35-45); PO2 Arterial 83.8 mmHg (80-100); pH Blood Arterial 7.48 (7.35-7.45)
--- NOTE | 2018-11-16 11:13 | NUR ---
Dr. Keenan was consulted, new orders recieved, abg was obtained, will be diuresing her, even though pt believed she can tell if she is getting to much fluid was able to explain to her that her lungs have fluid so is agreeable. placed a 14f garrison without diff, with clear yellow urine return, placed 8cc water in baloon, and gave 40mg iv lasix. pt is comfortable, has her call light in reach, water refreshed, she was repositioned, bedside table in place. no further needs expressed by pt. was able to turn 02 down to 7liters from 8.
[2018-11-16 12:11] LABS: Source, Urine Catheter
[2018-11-16 12:14] LABS: Bilirubin, Urine Neg (Neg); Blood, Urine Neg (Neg); Glucose Qualitative, Urine Neg (Neg); Ketones, Urine Neg (Neg); Leukocyte Esterase, Urine Neg (Neg); Nitrite, Urine Neg (Neg); Protein, Urine Neg (Neg); Specific Gravity, Urine 1.005 (1.003-1.022); Urobilinogen, Urine NORM (Normal)
[2018-11-16 12:15] LABS: Appearance, Urine Clear (Clear); Color, Urine Yellow (P-Yellow)
--- NOTE | 2018-11-16 16:04 | NUR ---
pt has put out 1000mls of urine in her garrison, looks like she is feeling better, she reports she can't feel any difference. she is visiting with her spouce, no complaints or needs at this time. call light in reach.
[2018-11-16 16:14] LABS: Adenovirus Not Detected (NOT DETECT); Bordetella pertussis Not Detected (NOT DETECT); Chlamydophila pneumoniae Not Detected (NOT DETECT); Coronavirus 229E Not Detected (NOT DETECT); Coronavirus HKU1 Not Detected (NOT DETECT); Coronavirus NL63 Not Detected (NOT DETECT); Coronavirus OC43 Not Detected (NOT DETECT); Human Metapneumovirus Not Detected (NOT DETECT); Human Rhinovirus/Enterovirus Not Detected (NOT DETECT); Influenza A Not Detected (NOT DETECT); Influenza A/2009-H1 Not Detected (NOT DETECT); Influenza A/H1 Not Detected (NOT DETECT); Influenza A/H3 Not Detected (NOT DETECT); Influenza B Not Detected (NOT DETECT); Mycoplasma pneumoniae Not Detected (NOT DETECT); Parainfluenza Virus 1 Not Detected (NOT DETECT); Parainfluenza Virus 2 Not Detected (NOT DETECT); Parainfluenza Virus 3 Not Detected (NOT DETECT); Parainfluenza Virus 4 Not Detected (NOT DETECT); Respiratory Syncytial Virus Not Detected (NOT DETECT)
[2018-11-16] MEDS ORDERED: TORSE20 PO (16:34)
[2018-11-16] MEDS ORDERED: POTA10T PO (16:35)
--- NOTE | 2018-11-16 18:32 | NUR ---
pt is feeling better this evening. she is on 6 liters at this time. sats are 94%. no further changes, medicated for pain two times today. call light in reach.
[2018-11-17 04:36] LABS: BASOPHILS ABSOLUTE AUTO 0.08 K/mm3 (0.00-0.23); BASOPHILS PERCENT AUTO 1 % (0-2); EOSINOPHILS ABSOLUTE AUTO 0.57 K/mm3 (0.00-0.68); EOSINOPHILS PERCENT AUTO 6 % (0-6); Hematocrit 31.1 % (33.0-51.0); IMMATURE GRAN ABSOLUTE AUTO 0.06 K/mm3 (0.00-0.10); IMMATURE GRAN PERCENT AUTO 1 % (0-1); LYMPHOCYTES ABSOLUTE AUTO 1.56 K/mm3 (0.84-5.20); LYMPHOCYTES PERCENT AUTO 16 % (21-46); MONOCYTES PERCENT AUTO 11 % (4-13); Mean Corpuscular HGB 31.5 pg (26.0-34.0); Mean Corpuscular HGB Conc 32.2 g/dL (31.5-36.5); Mean Corpuscular Volume 98 fL (80-100); Mean Platelet Volume 9.7 fL (9.1-12.4); NEUTROPHILS ABSOLUTE AUTO 6.23 K/mm3 (1.96-9.15); NEUTROPHILS PERCENT AUTO 66 % (41-73); Platelet Count 359 K/mm3 (150-400); RDW Coefficient Variation 13.2 % (11.7-14.2); RDW Standard Deviation 48.2 fL (35.1-46.3); Red Blood Cell Count 3.17 M/mm3 (3.80-5.20)
[2018-11-17 04:55] LABS: Alanine Aminotransfer (ALT/SGP 29 U/L (12-78); Albumin, Blood 1.9 g/dL (3.4-5.0); Albumin/Globulin Ratio 0.5 (0.8-1.8); Alk Phos 155 U/L (50-136); Anion Gap 3 mmol/L (6-16); Aspartate Aminotrans (AST/SGOT 58 U/L (12-37); Blood Urea Nitrogen 12 mg/dL (8-24); Bun/Creatinine Ratio 13.8 (12.0-20.0); CO2, Blood 33 mmol/L (21-32); Calcium, Blood 7.9 mg/dL (8.5-10.1); Chloride, Blood 97 mmol/L (98-108); Creatinine, Blood 0.87 mg/dL (0.40-1.00); Globulin, Blood 3.8 g/dL (2.2-4.0); Glomerular Filtration Rate >60 (60-); Glucose, Blood 97 mg/dL (70-99); Potassium, Blood 4.2 mmol/L (3.5-5.5); Sodium, Blood 133 mmol/L (136-145); Total Protein, Blood 5.7 g/dL (6.4-8.2)
--- NOTE | 2018-11-17 06:16 | NUR ---
PATIENT RESTING IN BED THROUGH THE NIGHT. PATIENT OXYGEN SATURATION DROPS INTO LOW TO MID 80'S WHEN MOVING AROUND IN THE BED. PATIENT ABLE TO MOVE AROUND IN THE BED INDEPENDENTLY. PATIENT CONTINUES ON 6L NC AT THIS TIME. PATIENT SLEEPING THROUGH MOST OF THE NIGHT.
--- NOTE | 2018-11-17 12:52 | NUR ---
REASSESSMENT: PT HAS SPENT THE MORNING IN BED RESTING OFF AND ON. HER LUNGS CONTINUE TO HAVE CRACKLES IN THE BASES AND PT GETS DYSPNEIC WITH MINIMAL ACTIVITY, BUT HER OXYGEN NEEDS HAVE GONE DOWN. RT HAS BEEN ABLE TO TITRATE HER DOWN TO 4L/NC AND SHE IS MAINTAINING SPO2 GREATER THAN 90. OTHER THAN THAT PT HAS HAD NO CHANGES FROM EARLIER ASSESSMENT. HER WAS IN AND VISITED FOR AWHILE. ALL QUESTIONS HAVE BEEN ANSWERED. CONTINUING TO MONITOR.
--- NOTE | 2018-11-17 16:56 | NUR ---
SHIFT SUMMARY: PT HAS DONE WELL THROUGHOUT THE SHIFT WITH OXYGEN TITRATED DOWN TO 4L/NC AND PT TOLERATING GETTING UP TO THE COMMODE THIS AFTERNOON. SHE DID DESATURATE DOWN TO 83% WITH THE ACTIVITY AND IT TOOK ABOUT 5 MINUTES FOR HER TO FULLY RETURN UP TO 90%, ONLY ABOUT A MINUTE TO GET UP TO 88%. SHE IS SR, BP STABLE. SHE HAS VOIDED SINCE LOPEZ WAS REMOVED. SHE HAS OTHERWISE HAD NO CHANGES SINCE PREVIOUS ASSESSMENTS THIS SHIFT.
--- NOTE | 2018-11-17 19:58 | NUR ---
Assumed care of pt at approx 1900. Pt presents sitting in bed watching TV, breathing easy and unlabored on 4L NC. Pt denies SOB at rest, but expressed to this RN DELCID during day shift. Pt with c/o pain for which this RN medicated per EMAR. VSS. No apparent sign of distress. Bed is low and locked, call light in reach, pt able to make needs known. See shift assessment for detailed systems assessment.
[2018-11-18 04:04] LABS: Anion Gap 6 mmol/L (6-16); Blood Urea Nitrogen 15 mg/dL (8-24); Bun/Creatinine Ratio 17.1 (12.0-20.0); CO2, Blood 32 mmol/L (21-32); Calcium, Blood 8.3 mg/dL (8.5-10.1); Chloride, Blood 95 mmol/L (98-108); Creatinine, Blood 0.88 mg/dL (0.40-1.00); Glomerular Filtration Rate >60 (60-); Glucose, Blood 152 mg/dL (70-99); Magnesium, Blood 2.1 mg/dL (1.6-2.4); Potassium, Blood 4.2 mmol/L (3.5-5.5); Sodium, Blood 133 mmol/L (136-145)
--- NOTE | 2018-11-18 04:29 | NUR ---
Shift Summary No acute changes this shift. VSS. No events on tele. Pt able to transfer from bed to BSC with SBA with desaturations noted down to 84% with recoveray achieved within 2-4 minutes. No changes in oxygen demand this shift. Pt states SOB and appears DELCID with transfers. Pt remains alert and oriented, converses appropriately, uses call light appropriately, call light in reach, able to make needs known. Pt able to reposition self to comfort. No further changes from initial assessment. Will continue to monitor.
--- NOTE | 2018-11-18 07:32 | NUR ---
ASSUMED CARE: PT RESTING QUIETLY AT THIS TIME. NC IN PLACE. NO FURTHER NEEDS NOTED AT THIS TIME.
--- NOTE | 2018-11-18 17:44 | NUR ---
SHIFT SUMMARY: PT SITTING UP IN CHAIR. MAINTAINING SATS IN MID 90S ON 4L HIGH FLOW. PLAN IS FOR POSSIBLE DC TOMORROW. MEDICAL STATUS, NO TELE. NO FURTHER NEEDS OR CONCERNS AT THIS TIME
--- NOTE | 2018-11-19 05:49 | NUR ---
Shift Summary No acute changes this shift. Pt remains alert and oriented, VSS, pt denies SOB. Pt able to have o2 titrated down from 4L NC to 2L NC with o2 saturation maintained>94%. No acute changes from initial shift assessment. Pt uses call light appropriately, able to make needs known, SBA to bathroom for voiding. Pt with breathing easy and unlabored, denies chest pain, denies acute pain. Pt with chronic pain medication and relieved per EMAR orders. Bed low and locked, call light in reach. Will continue to assess for acute changes and update as appropriate. CXR scheduled for this AM; completed.
--- NOTE | 2018-11-19 05:49 | NUR ---
Pt transported to X-ray via wheelchair on 2L NC.
--- NOTE | 2018-11-19 08:10 | NUR ---
pt sitting on the side of the bed eating breakfast, a/ox3, pleasant and cooperative with care, a/ox3, pleasant and cooperative with care, follows commands well, states her pain is alright but rates at 7/10 and did want a pain pill, this was given, lungs are clear dim in bases, resp even and unlabored while at rest, when asked if she is feeling like she is getting better she is pretty negative in response, did not get a clear answer, is frustrated about being sick, she is currently on 2 liters 02 via n/c, but did turn her up to 3 for eating as her sats are staying in the high 80's, has a dry unproductive cough, hrr, no edema noted, ppp+2, cap refill <3sec, vs stable, afebrile, iv site to lac, site is clear and patent, btx4, abd flat soft nontender, voids without diff, skin c/w/d, mafiliberto, derek, call light in reach.
--- NOTE | 2018-11-19 11:42 | NUR ---
PT ARRIVED TO PCU 15 VIA GURNEY FROM [facility], HE IS AWAKE, A/OX3, PLEASANT AND COOPERATIVE WITH CARE, FOLLOWS COMMANDS WELL, DENIES CHEST PAIN AT THIS TIME, STATES HE CHEST JUST FEELS A BIT STIFF. AND DAUGHTER ARE IN ATTENDENCE, VS STABLE, PER REPORT ARTERIES ARE CLEAR NO STENTS, TR BAND SITE IS CLEAR ARM BOARD IN PLACE, CALL LIGHT IN REACH, ICE WATER GIVEN.
--- NOTE | 2018-11-19 17:20 | NUR ---
PT. ARRIVED TO FLOOR VIA FROM [facility]. A&OX3. WEAK ON FEET.STANDBY ASSIST 98% 0N 3L/NC. LUNG SOUNDS CLEAR AND DECREASED T/O. BASES GREATER THE UPPER LOBES.
--- NOTE | 2018-11-19 17:22 | NUR ---
PT IS VERY CONCERNED ABOUT GOING HOME TO SOON, ATTEMPTED TO REASSURE HER, SHE WOULD VERY MUCH LIKE TO SEE DR. LAU PRIOR TO DISCHARGE THIS WAS PASSED ON TO RECIEVING NURSE. SHE WAS TRANSFERED TO MEDICAL FLOOR REPORT GIVEN TO PAM LAI. PT WAS TRANSFERED VIA WHEELCHAIR WITH LANGUAGE INSTRUCTOR IN ATTENDENCE. CALL LIGHT IN REACH.
--- NOTE | 2018-11-20 07:09 | NUR ---
anxious r/discharge wants confirmation from pulmonary dr that it is appropriate, room air, call light in reach, report given to returning day shift nurse
--- NOTE | 2018-11-20 18:10 | NUR ---
PT. QUITE ANXIOUS THIS MORNING ABOUT BEING DISCHARGED BEFORE DR. HORVATH SAW HER. AFTER DR. HORVATH SAW HER SHE WAS MUCH BETTER BUT STILL WANTING TO GO TO REHAB. LATER IN DAY AFTER HER PORTABLE OXYGEN WAS BROUGHT IN SHE DECIDED SHE WANTED TO GO HOME INSTEAD OF SNF SHE DID NOT LIKE THE FACILITIES. SILVESTRE NOTIFIED. PT WILL BE DISCHARGED TO HOME TOMORROW WITH OXYGEN AND HH. NO NOTEABLE CHANGES THIS SHIFT.
--- NOTE | 2018-11-21 06:11 | NUR ---
SHIFT SUMMARY PT OFF TO XRAY THIS AM FOR CHEST XRAY. A&O X 4, SLEPT WELL T/O THE NIGHT. VSS. ON 2L VIA NC, CONT PULSE OXIMETRY IN PLACE O2 SATS >97%. PT TO GO HOME ON O2, HOME O2 TANK IN RM WITH PT. SBA TO BSC. DENIES ANY PAIN, DISCOMFORT, ANXIETY, OR N/V. PT IS TO DC ON c HOME HEALTH. NO OTHER CHANGES TO REPORT. WILL CONT TO MONITOR AND PROVIDE CARE UNTIL PRESUMED BY ONCOMING RN.
--- NOTE | 2018-11-21 14:51 | NUR ---
ECHOCARDIOGRAM COMPLETED
--- NOTE | 2018-11-21 14:52 | NUR ---
SUMMARY PT IS A/O X4, PLEASANT/COOPERATIVE. UP WITH SBA TO BSC/CHAIR. DR BRITT IN TO SEE HER TODAY, STATE GOAL TO TITIRATE OFF O2 WHILE @ REST. BIOX 94-96% 2L, TITRATE DOWN TO 1L, SHE STAYED APPROX 96%, TITRATED OFF BY NOON TODAY, SHE MAINTAINED @ 94% ON ROOM AIR WHILE @ REST. ANJUM WORKED WITH HER THIS AFTERNOON, AMBULATED IN FRIAS ON ROOM AIR FOR APPROX 50 FT., SHE DID DROP TO 89% HOWEVER DID NOT REQUIRE O2. DR LAU WAS VISITING PT DURING PHYTHER. LUNGS DECREASED W CRACKLES BASES THIS AM, SHE STATE NO COUGH, STATE NO SOB @ REST. VSS.
--- NOTE | 2018-11-21 21:37 | NUR ---
AMBULATION IN HALLWAY THIS RN AND FOAM DISPENSER AMBULATED WITH PT TO END OF HALLWAY, PAST ELEVATORS, TO THE LAB UNIT. 4 BREAKS TAKEN IN BETWEEN. O2 SATS DROPED TO 91%, BUT QUICKLY RETURNED TO >95% ON RA. PT TOLERATED WELL OVERALL. WILL CONT TO MONITOR.
--- NOTE | 2018-11-22 05:52 | NUR ---
SHIFT SUMMARY PT AMBULATED FROM RM TO LAB AND BACK, TOLERATED WELL. DROPPED DOWN TO 91% ON RA DURING AMBULATION, AND QUICKLY RETURNED TO 96% ON RA. HR REMAINED 60s - 70s. PT DENIES SOB. TOLERATES RA THROUGH THE NIGHT. PT TREATED 1X FOR BACK PAIN c PRN PERCOCET. PT TO D/C HOME, [facility], TODAY ON . NO OTHER CHANGES TO REPORT, WILL CONT TO MONITOR AND PROVIDE CARE UNTIL PRESUMED BY ONCOMING RN.
[2018-11-22] MEDS ORDERED: GLYCOPYRROLATE INH (11:31)
[2018-11-22] MEDS ORDERED: Vsl#3 Capsule1 EACH PO (11:32)
[2018-11-22] MEDS ORDERED: Prednisone10 MG PO (11:35)
--- NOTE | 2018-11-22 12:50 | NUR ---
SUMMARY/DISCHARGE PT STATE FEELING IMPROVED, STATE NO SOB @ REST. DR BRITT IN TO SEE HER STATE SHE MAY GO HOME AFTER HOME O2 EVAL. PT AMBULATE IN [facility]RIAS WITH [facility], STATE PT BECAME SOMEWHAT SOB W EXERTION. RT IN FOR EVAL STATE PT MAINTAINED SATS, NO LOWER THAN 89%, NO HOME O2 REQUIRED. RN D/C [employer] NOTIFIED. HOME HEALTH W [facility] ARRANGED. TRANSPORTATION HOME ARRANGED W [facility] W/C [place]. IV D/C INTACT. NEW SCRIPTS TO [facility]/REQUEST. D/C INSTRUCT REVIEWED W PT. SHE IS PLEASANT/APPRECIATIVE. STATES SATISFACTION.
== END 2018-11-22 14:37 | disposition home health service (06) | DRG 871 ==
LOC: ER 16:41 → PCU 19:28 → MEDS 11-19 17:20 → ENPENDDIS 11-22 10:59 → MEDS 11-22 14:37
PROVIDERS: Emergency Medicine; Internal Medicine; Internal Medicine Pulmonary Disease; Nurse Practitioner Acute Care; ADMIT Hospitalist
DX: A41.9 Sepsis, unspecified organism (principal); J18.9 Pneumonia, unspecified organism; J96.01 Acute respiratory failure with hypoxia; E44.0 Moderate protein-calorie malnutrition; I48.2 Chronic atrial fibrillation; G47.09 Other insomnia; F51.8 Other sleep disorders not due to a substance or known physiological condition; Z79.01 Long term (current) use of anticoagulants; E78.5 Hyperlipidemia, unspecified; I25.2 Old myocardial infarction; F32.9 Major depressive disorder, single episode, unspecified; E03.9 Hypothyroidism, unspecified; I25.10 Atherosclerotic heart disease of native coronary artery without angina pectoris; G89.4 Chronic pain syndrome; Z87.891 Personal history of nicotine dependence; I12.9 Hypertensive chronic kidney disease with stage 1 through stage 4 chronic kidney disease, or unspecified chronic kidney disease; N18.3 Chronic kidney disease, stage 3 (moderate); Z95.5 Presence of coronary angioplasty implant and graft; Z68.22 Body mass index [BMI] 22.0-22.9, adult
CPT/HCPCS: 0099U; 36415; 36600; 71046; 71260; 80048; 80053; 80069; 81003; 82803; 83605; 83735; 83880; 84145; 84484; 85025; 93005; 93010; 93306; 94640; 94667; 94760; 94761; 94762; 96365; 96367; 97110; 97116; 97162; 97530; 98960; 99285-25; A9270-GY; J0456; J0696; J1940; J2405; J7050; J7512; Q9967

== ENCOUNTER 2019-06-05 11:44 | Emergency (ER) | payer MEDICARE, BC ==
[~2019-06-05] VITALS: Ht 165.1 cm; Wt 60.3 kg
[~2019-06-05 11:44] MED LIST changes: +DULO30 PO; +ELIQUIS5 M2 PO; +GLYCOPYRROLATE INH; +POTA10T PO; +Prednisone10 MG PO; +Vsl#3 Capsule1 EACH PO
[2019-06-05 13:37] LABS: BASOPHILS ABSOLUTE AUTO 0.07 K/mm3 (0.00-0.23); BASOPHILS PERCENT AUTO 1 % (0-2); EOSINOPHILS ABSOLUTE AUTO 0.26 K/mm3 (0.00-0.68); EOSINOPHILS PERCENT AUTO 5 % (0-6); Hematocrit 40.3 % (33.0-51.0); Hemoglobin 13.2 g/dL (11.5-16.0); IMMATURE GRAN ABSOLUTE AUTO 0.01 K/mm3 (0.00-0.10); IMMATURE GRAN PERCENT AUTO 0 % (0-1); LYMPHOCYTES ABSOLUTE AUTO 1.51 K/mm3 (0.84-5.20); LYMPHOCYTES PERCENT AUTO 27 % (21-46); MONOCYTES PERCENT AUTO 11 % (4-13); Mean Corpuscular HGB 33.2 pg (26.0-34.0); Mean Corpuscular HGB Conc 32.8 g/dL (31.5-36.5); Mean Corpuscular Volume 101 fL (80-100); Mean Platelet Volume 10.4 fL (9.1-12.4); NEUTROPHILS ABSOLUTE AUTO 3.24 K/mm3 (1.96-9.15); NEUTROPHILS PERCENT AUTO 57 % (41-73); Platelet Count 195 K/mm3 (150-400); RDW Coefficient Variation 14.9 % (11.7-14.2); RDW Standard Deviation 56.1 fL (35.1-46.3); Red Blood Cell Count 3.98 M/mm3 (3.80-5.20); White Blood Cell Count 5.69 K/mm3 (4.00-11.30)
[2019-06-05 13:52] LABS: Albumin, Blood 3.8 g/dL (3.4-5.0); Albumin/Globulin Ratio 1.2 (0.8-1.8); Alk Phos 217 U/L (50-136); Anion Gap 9 mmol/L (6-16); Bilirubin, Total 0.4 mg/dL (0.1-1.0); Blood Urea Nitrogen 30 mg/dL (8-24); CO2, Blood 23 mmol/L (21-32); Chloride, Blood 106 mmol/L (98-108); Globulin, Blood 3.2 g/dL (2.2-4.0); Glucose, Blood 125 mg/dL (70-99); Potassium, Blood 4.5 mmol/L (3.5-5.5); Sodium, Blood 138 mmol/L (136-145)
[2019-06-05 13:54] LABS: Troponin I <0.015 ng/mL (0.000-0.040)
[2019-06-05 14:07] LABS: Aspartate Aminotrans (AST/SGOT 33 U/L (12-37); Bun/Creatinine Ratio 22.7 (12.0-20.0); Calcium, Blood 8.8 mg/dL (8.5-10.1); Creatinine, Blood 1.32 mg/dL (0.40-1.00); Glomerular Filtration Rate 41 (60-)
[2019-06-05 14:20] LABS: Alanine Aminotransfer (ALT/SGP 36 U/L (12-78)
[2019-06-05] MEDS ORDERED: Lopressor 25 mg25 MG PO (15:46)
== END 2019-06-05 16:14 | disposition home or self-care (01) ==
LOC: ER 11:44
PROVIDERS: Emergency Medicine
DX: I48.91 Unspecified atrial fibrillation (principal); Z86.73 Personal history of transient ischemic attack (TIA), and cerebral infarction without residual deficits; Z87.891 Personal history of nicotine dependence; Z88.5 Allergy status to narcotic agent; Z79.899 Other long term (current) drug therapy; Z79.52 Long term (current) use of systemic steroids
CPT/HCPCS: 36415; 71046; 80053; 83880; 84484; 85025; 93005; 93010; 99285-25

== ENCOUNTER 2019-10-22 06:20 | Day surgery (SDC) | payer MEDICARE, BC ==
[~2019-10-22] VITALS: Ht 165.1 cm; Wt 58.4 kg
[~2019-10-22 06:20] MED LIST changes: +Lopressor 25 mg25 MG PO
[2019-10-22] MEDS ORDERED: Percocet 5-3251 EACH PO (07:09)
--- NOTE | 2019-10-23 09:58 | NUR ---
10/23/[address] *LATE ENTRY* THIS RN WAS IN STEP DOWN CARING FOR ANOTHER PATIENT AND COULD HEAR RNLIZANDRO CARING FOR ASHLEY. THE PATIENT REQUESTED ADDITIONAL WARM BLANKETS AND COULD BE HEARD COMPLAINING ABOUT RN LIZANDRO'S CARE DESPITE A PLEASANT AND CARING NATURE ON RN, LIZANDRO'S PART. AFTER RNLIZANDRO WALKED AWAY, ASHLEY THEN MUTTERED "DUMBASS". THIS RN WAS CARING FOR PATIENT WITHIN 15 FT AND HEARD THIS AT WHICH POINT I ADDRESSED ASHLEY AND SAID " WE DO NOT TOLERATE NAME CALLING" TO WHICH SHE RESPONDED "I DIDNT SAY ANYTHING". THIS RN RESUMED CARING FOR HER ALTERNATE PATIENT.
--- NOTE | 2019-10-23 10:07 | NUR ---
10/23/19 Babs Beth LATE ENTRY- DURING PRE-OP CHECK IN PT WAS UNPLEASENT AND DEMANDING TO WORK WITH. AT TIMES IT SEEMED LIKE SHE WAS TRYING TO BE FUNNY, LAUGHING AFTER MAKING A RUDE REMARK. SHE WAS CONCERNED OVER THE IV INSERTION AND DIDN'T WANT TO HEAR ABOUT WHAT WAS GOING ON DURING THE INSERTION AND DIDN'T WANT THE RN TO MISS. SHE CONTINUED BEING UNPLEASENT WITH DR. MOREJON AND DR. NOBLE DURING IN ROOM PROCEEDURE TO NUMB UP THE OPERATIVE HAND. PT SEEMED UNABLE TO PLEASE. TMG
== END 2019-10-22 08:38 | disposition home or self-care (01) ==
LOC: ORSCSDS 06:20
PROVIDERS: Orthopaedic Surgery
PROC: 01N54ZZ Release Median Nerve, Percutaneous Endoscopic Approach (ICD-10-PCS; principal; 2019-10-22 07:30)
DX: G56.02 Carpal tunnel syndrome, left upper limb (principal); I48.91 Unspecified atrial fibrillation; Z79.01 Long term (current) use of anticoagulants; I25.10 Atherosclerotic heart disease of native coronary artery without angina pectoris; N18.4 Chronic kidney disease, stage 4 (severe); E03.9 Hypothyroidism, unspecified; I25.2 Old myocardial infarction; Z79.899 Other long term (current) drug therapy
CPT/HCPCS: J1885; J2250; J2704; J3010; J7120

== ENCOUNTER 2020-04-01 06:08 | Day surgery (SDC) | payer MEDICARE, BC ==
--- NOTE | 2020-04-01 14:25 | NUR ---
SPOKE WITH DR. GARCIA AT ABOUT 1415 CONCERNING PT POST OP NAUSEA AND PAIN. AWAITING NEW IV ORDERS AT THIS TIME.
--- NOTE | 2020-04-01 14:53 | NUR ---
POST OP: REPORT RECEIVED FROM PHOTOGRAPHER FINISH TAMI. PT TO UNIT AT ABOUT 1130. PT IS ORIENTED, A LITTLE DROWSY. ALL VSS. SURGICAL SITE WNL. PT REPORTS NAUSEA, GIVEN ZOFRAN. PT ALSO REPORTS PAIN, PER MAR, TO SOON TO GIVE OXYCODONE, AND NO IV PAIN MEDS ORDERED. PAGE MADE TO DR. GARCIA AT 3170. AWAITING CALL BACK
--- NOTE | 2020-04-01 20:15 | NUR ---
PT CONTINUE TO C/O PAIN AT ABOUT 1430, PT RATES PAIN 10/10 AND REPORTS THE HYDROCODONE DID NOT HELP. DR. GARCIA CALLED BACK AND IV DILUADID ORDERED. 0.5 OF IV DILAUDID GIVEN AT ABOUT 1504. PT ASKED TO CALL IF PAIN CONTINUES TO BE HIGH AND NOT DECREASE SOME. ROUNDED ON PT AT ABOUT 1530, PT SAYS PAIN IS 10/10, IS NOT GETTING RELIEF "JUST WANTS TO " IT IS SO PAINFUL AND IS WHIMPERING AND SWEARING. SURGICAL SITE RE ASSESSED AT THIS TIME, AND IS WNL, CDI. ABD IS DISTENTED, NO INCREASE FROM WHEN FIRST ASSESSED. PT ASKED WHAT MEDICATION HAS WORKED PREVIOUSLY FOR HER PAIN, SHE REPORTS MORPHINE. WHEN ASKED ABOUT AN ALLERGY PT STATED "IT JUST MADE ME HAVE MILD HALLUCINATIONS, BUT IT WORKS THE BEST". PT REPORTED THAT SHE FELT COMFORTABLE WITH RECEIVING MORPHINE AT THIS TIME. DR. GARCIA THEN CALLED AGAIN AND MADE AWARE OF PT RESPONSE CONCERNING MORPHINE , AND HER PAIN. SEE NEW ORDERS. ONE TIME DOSE OF 1MG MORPHINE GIVEN AT 1550. PT DID NOT EXPERIANCE HULLUCINATIONS. PLAN TO START MORPHINE PREPARED FOODS SUPERVISOR WELL PER ORDER
--- NOTE | 2020-04-01 20:29 | NUR ---
UNABLE TO START MORPHINE HAZ TECH RELATED TO HAZ TECH SYRINGE AND PUMP ISSUES EVEN WITH TRYING A NUMBER OF DIFFENT WAYS AND RECEIVING HELP FROM PHARMACY AND MANAGER ADOBE, MARY WELL MING LOMELI. PT CONTINED TO RATE PAIN 10/10 WITH NO RELIEF. ARMANI CALLED DR. GARCIA AT ABOUT 1755 FOR DIFFERENT ORDERS FOR PAIN, AND MORPHINE HAZ TECH DC'D. SEE EMAR. PT MEDICATED, WILL CTM.
--- NOTE | 2020-04-01 20:33 | NUR ---
SUMMARY: SEE PREVIOUS NOTES BY THIS RN. VSS, A/O. SURGICAL SITE WNL. PT ABLE TO AMBULATE TO BATHROOM AND VOID. TOLERATING SMALL AMT PO INTAKE. DENIES PASSING GAS, AMBULATION ENCOURAGED. CONTINUED TO RATE PAIN 10/10 JUST BEFORE REPORT GIVEN TO MING NAVARRO. PLAN TO CTM PT PAIN AND MEDICATE PER ORDERS. CONTINUIOUS BI OX ORDERED PER SAFETY PROTOCOL.
--- NOTE | 2020-04-01 23:03 | NUR ---
SPOKE TO DR GARCIA REGARDING PATIENTS PAIN. PT REPORTING CONSISTANT PAIN OF 9/10 OR HIGHER, UNRELIEVED WITH CURRENT MORPHINE DOSE. INCREASED DISTENTION NOTED ON SHIFT CHANGE CONFIRMED WITH PREVIOUS RN. SIGNIFICANT PAIN ON R SIDE IN PARTICULAR WITH SLIGHT DISTENTION AT THAT SITE. NO BRUISING OR DRAINAGE NOTED. HR TRENDING UP AND TEMP OF 99.4 PT TAKING SHALLOWING BREATHING R/T PAIN. DR GARCIA AWARE. ORDERS RECIEVED TO CONTINUE THE CURRENT MEDICATION REGIMEN AND ATTMEPT TO START PREVIOUS MORPHINE LIGHTING DIRECTOR ATTEMPTED DURING DAY SHIFT. MD ASKED TO BE CALLED BACK IF HR SUSTAINS IN THE 1 TEENS. WILL MEDICATE PATIENT PER EMAR AND MONITOR V/S DIRECTED.
--- NOTE | 2020-04-02 | NUR ---
BAND LINING BANDER STARTED FOR PATIENT. ENCOURAGING PATIENT TO DEEP BREATH, LOWERED ROOM TEMP AND REMOVED K-PAD TO HELP WITH ELEVATED TEMPERATURE. INCREASED MONITORING OF PATIENTS V/S TO Q2 TO MONITOR CHANGES IN V/S. WILL MONITOR PATIENT FOR RESPONSE TO PAIN REGIMEN.
--- NOTE | 2020-04-02 01:34 | NUR ---
DR GARCIA IN TO SEE PT AT APPROX 0120. OBSERVED ABDOMEN TOGETHER AND DISCUSSED ONGOING PAIN MANAGEMENT ISSUES. PLAN TO CONTINUE WITH ORDERED PAIN MANAGEMENT PER EMAR.
--- NOTE | 2020-04-02 02:18 | NUR ---
PLACED PUREWICK PER PT REQUEST SHE WAS TO PAINFUL TO ATTEMPT TRANSFER TO BEDSIDE COMMODE. PT STATES SHE IS GOING TO GO SOON AND DECLINES BLADDER SCAN CURRENTLY.
[2020-04-02 04:27] LABS: Hematocrit 40.5 % (33.0-51.0); Hemoglobin 13.5 g/dL (11.5-16.0); Mean Corpuscular HGB 33.1 pg (26.0-34.0); Mean Corpuscular HGB Conc 33.3 g/dL (31.5-36.5); Mean Corpuscular Volume 99 fL (80-100); Mean Platelet Volume 9.9 fL (9.1-12.4); Platelet Count 193 K/mm3 (150-400); RDW Coefficient Variation 11.9 % (11.7-14.2); RDW Standard Deviation 43.3 fL (35.1-46.3); Red Blood Cell Count 4.08 M/mm3 (3.80-5.20); White Blood Cell Count 23.89 K/mm3 (4.00-11.30)
[2020-04-02 04:45] LABS: Alanine Aminotransfer (ALT/SGP 32 U/L (12-78); Albumin, Blood 3.2 g/dL (3.4-5.0); Alk Phos 163 U/L (50-136); Anion Gap 8 mmol/L (6-16); Aspartate Aminotrans (AST/SGOT 41 U/L (12-37); Bilirubin, Total 1.3 mg/dL (0.1-1.0); Blood Urea Nitrogen 21 mg/dL (8-24); CO2, Blood 24 mmol/L (21-32); Calcium, Blood 8.7 mg/dL (8.5-10.1); Chloride, Blood 102 mmol/L (98-108); Creatinine, Blood 0.81 mg/dL (0.40-1.00); Globulin, Blood 3.2 g/dL (2.2-4.0); Glomerular Filtration Rate >60 (60-); Glucose, Blood 161 mg/dL (70-99); Potassium, Blood 4.3 mmol/L (3.5-5.5); Sodium, Blood 134 mmol/L (136-145); Total Protein, Blood 6.4 g/dL (6.4-8.2)
[2020-04-02 04:53] LABS: BAND PERCENT MAN 16 % (0-8); BASOPHILS PERCENT MAN 0 % (0-2); EOSINOPHILS PERCENT MAN 0 % (0-6); LYMPHOCYTES ABSOLUTE MAN 0.95 K/mm3 (0.84-5.20); LYMPHOCYTES PERCENT MAN 4 % (21-46); MONOCYTES ABSOLUTE MAN 0.95 K/mm3 (0.16-1.47); MONOCYTES PERCENT MAN 4 % (4-13); NEUTROPHILS ABSOLUTE MAN 21.97 K/mm3 (1.96-9.15); SEG NEUTROPHILS PERCENT MAN 76 % (41-73); TOTAL CELLS COUNTED 100
--- NOTE | 2020-04-02 06:23 | NUR ---
SHIFT SUMMARY POD 1 LAP SHARLA [id number]. SEE PREVIOUS NOTES FOR PAIN MANAGEMENT ISSUES. NO CHANGES AT THIS TIME PATIENT STILL RATES PAIN AT 9/10 ATTEMPTED TRANSFER TO BSC. PT REQUIRED 2 MAX ASSIST R/T PAIN. UNABLE TO VOID AND REQUIRED STRAIGHT CATH TONIGHT. LOCALIZES PAIN TO R SIDE OF HER ABDOMEN. LAP SITES CDI. PLAN TODAY WILL BE TO CONTINUE TO MANAGE PAIN AND ENCOURAGE DEEP BREATHING.
--- NOTE | 2020-04-02 07:45 | NUR ---
pt has inc dist absent bt's x4 pt given gum instructed to use ice chips and sips of h20 only pain reported 8-01/07 with morphine costume rental clerk and alt po percocet no bruise noted pt stated she feels very uncomfortable
--- NOTE | 2020-04-02 09:00 | NUR ---
dr maddox office called re pain re dilaudid storage manager
--- NOTE | 2020-04-02 10:30 | NUR ---
PT BACK FROM HIDA SCAN PT PAINFUL IV POT SANDER TO BE CHANGED TO DILAUDID IVP OF 0.5 MG DILAUDID GIVEN PAIN 02/06
--- NOTE | 2020-04-02 10:40 | NUR ---
DR GARCIA BY TO SEE PT
--- NOTE | 2020-04-02 11:20 | NUR ---
pt sched for ct scan for drain placement also awaiting transfer for ercp pt aware lab at bedside for coag study pt has been 4 days no marcelleis
[2020-04-02 11:50] LABS: International Normalized Ratio 1.17; Prothrombin Time Results 12.4 Sec (9.7-11.5)
--- NOTE | 2020-04-02 12:17 | NUR ---
pt stated pain is back as bad as it was another 0.5 mg ivp given still awaiting ct pt had few sips of enlive juice
--- NOTE | 2020-04-02 13:34 | NUR ---
pt transported via gurney to ct for drain placement
--- NOTE | 2020-04-02 14:51 | NUR ---
PT ARRIVED BACK TO ROOM [address] DRAIN PLACED 400 ML DK MAROON COLORED DRAINAGE PT STATED THE PAIN IS NOT IMPROVED PT GIVEN 0.5 MG IVP DILAUDSIMONE GARCIA CAME BY TO SEE PT WILL CALL CAESAR LAI FOR REPORT TO TRANSFER TO [facility] FOR ERCP
--- NOTE | 2020-04-02 15:40 | NUR ---
PT TRANSPORTED TO [facility] VIA GURNEY PT DRAINEMPTIED AGIAN 400 ML MAROON COLOR DRAINAGE PT UNABLE TO VOID LOPEZ CATH PLACED REPORT CALLED TO CAESAR AT [facility] PT ALSO UNABLE TO TAKE HER PURPLE WALKER AT THE DRY CLEANING MACHINE OPERATOR HELPER MESSAGE LEFT WITH HER CAREGIVER LIL TO PICK IT UP
--- NOTE | 2020-04-02 18:56 | NUR ---
JOSE F GETTER OPERATOR WASTE TRANSPORT RETURNED WITH GETTER OPERATOR, WASTED WITH CHERYLE VARGAS RN. 28.6cc JOSE F
== END 2020-04-02 15:48 | disposition short-term general hospital (02) ==
LOC: ORSCMMR 06:08 → ORD 07:30 → ORSCMMR 07:30 → SURS 11:21 → ORSCMMR 04-02 15:48
PROVIDERS: Surgery
DX: K80.10 Calculus of gallbladder with chronic cholecystitis without obstruction (principal); I48.91 Unspecified atrial fibrillation; Z79.01 Long term (current) use of anticoagulants; I25.2 Old myocardial infarction; Z79.899 Other long term (current) drug therapy
CPT/HCPCS: 36415; 49405; 74300; 78226; 80053; 85025; 85610; 85730; 88304; 94762; A9270; A9270-GY; A9537; C1729; J0690; J1170; J2270; J2405; J2543; J2710; J3010; J7040; J7120

== ENCOUNTER 2020-04-09 10:38 | Inpatient (IN) | payer MEDICARE, BC ==
[~2020-04-09] VITALS: Ht 172.7 cm; Wt 63.1 kg
[~2020-04-09 10:38] MED LIST changes: -ELIQUIS5 M2 PO; -LEVSOD75 PO; -Lipitor20 MG PO; -MAGOXI400 PO
[2020-04-09 11:01] LABS: BASOPHILS ABSOLUTE AUTO 0.05 K/mm3 (0.00-0.23); BASOPHILS PERCENT AUTO 0 % (0-2); EOSINOPHILS ABSOLUTE AUTO 0.03 K/mm3 (0.00-0.68); EOSINOPHILS PERCENT AUTO 0 % (0-6); Hematocrit 31.2 % (33.0-51.0); Hemoglobin 10.4 g/dL (11.5-16.0); IMMATURE GRAN ABSOLUTE AUTO 0.25 K/mm3 (0.00-0.10); IMMATURE GRAN PERCENT AUTO 1 % (0-1); LYMPHOCYTES ABSOLUTE AUTO 1.03 K/mm3 (0.84-5.20); LYMPHOCYTES PERCENT AUTO 5 % (21-46); MONOCYTES ABSOLUTE AUTO 1.22 K/mm3 (0.16-1.47); MONOCYTES PERCENT AUTO 6 % (4-13); Mean Corpuscular HGB 32.6 pg (26.0-34.0); Mean Corpuscular HGB Conc 33.3 g/dL (31.5-36.5); Mean Corpuscular Volume 98 fL (80-100); Mean Platelet Volume 9.9 fL (9.1-12.4); NEUTROPHILS ABSOLUTE AUTO 19.08 K/mm3 (1.96-9.15); NEUTROPHILS PERCENT AUTO 88 % (41-73); Platelet Count 278 K/mm3 (150-400); RDW Coefficient Variation 12.5 % (11.7-14.2); RDW Standard Deviation 44.9 fL (35.1-46.3); Red Blood Cell Count 3.19 M/mm3 (3.80-5.20); White Blood Cell Count 21.66 K/mm3 (4.00-11.30)
[2020-04-09 11:21] LABS: Alanine Aminotransfer (ALT/SGP 24 U/L (12-78); Albumin, Blood 1.8 g/dL (3.4-5.0); Albumin/Globulin Ratio 0.5 (0.8-1.8); Alk Phos 199 U/L (50-136); Anion Gap 9 mmol/L (6-16); Aspartate Aminotrans (AST/SGOT 50 U/L (12-37); Bilirubin, Total 0.6 mg/dL (0.1-1.0); Blood Urea Nitrogen 42 mg/dL (8-24); Bun/Creatinine Ratio 33.1 (12.0-20.0); CO2, Blood 24 mmol/L (21-32); Calcium, Blood 7.9 mg/dL (8.5-10.1); Chloride, Blood 101 mmol/L (98-108); Creatinine, Blood 1.27 mg/dL (0.40-1.00); Globulin, Blood 3.5 g/dL (2.2-4.0); Glomerular Filtration Rate 43 (60-); Glucose, Blood 96 mg/dL (70-99); Potassium, Blood 4.1 mmol/L (3.5-5.5); Sodium, Blood 134 mmol/L (136-145); Total Protein, Blood 5.3 g/dL (6.4-8.2); Troponin I <0.015 ng/mL (0.000-0.040)
[2020-04-09 12:19] LABS: International Normalized Ratio 1.22; Prothrombin Time Results 12.9 Sec (9.7-11.5)
[2020-04-09] MEDS ORDERED: Percocet 10-321 EACH PO (12:25)
[2020-04-09] MEDS ORDERED: ATOR40TA PO (12:25)
[2020-04-09] MEDS ORDERED: LEVSOD75 PO (12:26)
[2020-04-09] MEDS ORDERED: ELIQUIS5 M2 PO (12:26)
[2020-04-09] MEDS ORDERED: KLOR-CON 1010 MEQ PO (12:26)
[2020-04-09] MEDS ORDERED: MAGOXI400 PO (12:26)
[2020-04-09] MEDS ORDERED: TORS10 PO (12:27)
--- NOTE | 2020-04-09 18:07 | NUR ---
SHIFT NOTE PT ARRIVED FROM ER THIS AFTERNOON WITH DIAGNOSIS OF AFIB c RVR. PT ARRIVES WITH NUMEROUS COMPLAINTS, AND ACCUSATIONS. PT BLAMES [facility] FOR "A BAD SURGERY" WHICH WAS A SHARLA EARLIER THIS MONTH AND "THEM" BEING RIVERBEND FOR "LUMPS" TO RIBS. PT WITH EXTENSIVE HX OF BACK SURGERIES AND CHRONIC PAIN ASSOCIATED WITH THE SURGERIES. ABD SOFT, PAINFUL, ROUND WITH HYPOACTIVE BT, SURGICAL INCISIONS NOTED TO ABD WITH EXTENSIVE SCARRING. PT STS "JUST SHUTUP AND STOP TALKING" WHEN ATTEMPTING TO PERFORM ADMIT ASSESSMENT. ANTIBIOTICS WERE LATE BEING STARTED WHEN SHE ARRIVED FROM ER PT WAS NOT ALLOWING BLOOD DRAW SHE STATED "I WAS WAITING FOR SOMEONE WHITE TO DRAW MY BLOOD". PT REFUSED A 3RD IV INSERTION, WHICH CAUSED FURTHER DELAY IN ANTIBIOTICS AND ALBUMIN ADMINISTRATION.
--- NOTE | 2020-04-09 23:18 | NUR ---
I RECEIVED A TELEPHONE CALL FROM SEBASTIAN, ENVELOPE SEALER - PT'S HR 130-140'S. PT WAS ASLEEP, AWOKE PT - PT REPORTS SHE WAS HAVING A TERRIBLE NIGHTMARE. PT REPORTS PAIN IS FINE. PT AWAKE NOW, WATCHING TV, TRYING TO RELAX AFTER WAKING FROM A NIGHTMARE. PT RELAYS SHE HAS HAD NIGHTMARES BEFORE, BUT NOT LIKE THIS ONE.
[2020-04-10 00:49] LABS: Source, Urine Clean Catch
[2020-04-10 00:51] LABS: Bilirubin, Urine Neg (Neg); Blood, Urine Neg (Neg); Glucose Qualitative, Urine Neg (Neg); Ketones, Urine Neg (Neg); Leukocyte Esterase, Urine Neg (Neg); Nitrite, Urine Neg (Neg); Protein, Urine Neg (Neg); Urobilinogen, Urine NORM (Normal)
[2020-04-10 01:00] LABS: Appearance, Urine Clear (Clear); Color, Urine Yellow (P-Yellow)
--- NOTE | 2020-04-10 02:05 | NUR ---
PT HAD ANOTHER EPISODE AT 0155 WITH AN ELEVATED HEART RATE 130-140'S, PT WAS SLEEPING SOUNDLY. I WOKE THE PT UP, SHE REPORTED SHE WAS STARTING TO "HAVE ANOTHER DREAM" - SPOKE WITH CHARLIE RAI ABOUT PT'S ELEVATED HEART RATE. PT IS CURRENTLY IN SEMI FOWLERS POSITION, WATCHING TV. MONITORING HEART RATE FREQUENTLY ON PCU MONITOR.
[2020-04-10 04:25] LABS: BASOPHILS ABSOLUTE AUTO 0.04 K/mm3 (0.00-0.23); BASOPHILS PERCENT AUTO 0 % (0-2); EOSINOPHILS ABSOLUTE AUTO 0.14 K/mm3 (0.00-0.68); EOSINOPHILS PERCENT AUTO 1 % (0-6); Hemoglobin 8.3 g/dL (11.5-16.0); IMMATURE GRAN ABSOLUTE AUTO 0.19 K/mm3 (0.00-0.10); IMMATURE GRAN PERCENT AUTO 1 % (0-1); LYMPHOCYTES ABSOLUTE AUTO 1.31 K/mm3 (0.84-5.20); LYMPHOCYTES PERCENT AUTO 7 % (21-46); MONOCYTES PERCENT AUTO 7 % (4-13); Mean Corpuscular HGB 31.8 pg (26.0-34.0); Mean Corpuscular HGB Conc 33.2 g/dL (31.5-36.5); Mean Corpuscular Volume 96 fL (80-100); Mean Platelet Volume 9.7 fL (9.1-12.4); NEUTROPHILS ABSOLUTE AUTO 15.24 K/mm3 (1.96-9.15); NEUTROPHILS PERCENT AUTO 84 % (41-73); Platelet Count 268 K/mm3 (150-400); RDW Coefficient Variation 12.8 % (11.7-14.2); RDW Standard Deviation 44.7 fL (35.1-46.3); Red Blood Cell Count 2.61 M/mm3 (3.80-5.20); White Blood Cell Count 18.22 K/mm3 (4.00-11.30)
[2020-04-10 04:44] LABS: Albumin, Blood 2.4 g/dL (3.4-5.0); Albumin/Globulin Ratio 0.9 (0.8-1.8); Bilirubin, Total 0.8 mg/dL (0.1-1.0); Bun/Creatinine Ratio 31.7 (12.0-20.0); Calcium, Blood 7.6 mg/dL (8.5-10.1); Creatinine, Blood 1.23 mg/dL (0.40-1.00); Globulin, Blood 2.7 g/dL (2.2-4.0); Potassium, Blood 3.9 mmol/L (3.5-5.5); Total Protein, Blood 5.1 g/dL (6.4-8.2)
--- NOTE | 2020-04-10 05:57 | NUR ---
PT REPORTS HER PAIN LEVEL A 6 THIS AM. NO ACUTE CHANGES THROUGHOUT THE SHIFT. PT DID HAVE A NIGHTMARE DURING THE NIGHT, PT DENIES A HISTORY OF NIGHTMARES. KPAD TO RIGHT SIDE OF BACK FOR COMFORT. NECK ROLL IN PLACE. FLUIDS AT BEDSIDE. NO REQUESTS AT THIS TIME. CALL LIGHT WITHIN REACH. BED IN LOW POSITION.
--- NOTE | 2020-04-10 09:04 | NUR ---
Call to Dr. Correia regarding aflutter at 120-145. Reviewed pt's current medications and history, vital signs and present condition. NEw orders received. is on the way to the hospital and will see her for the first time then.
--- NOTE | 2020-04-10 09:23 | NUR ---
Medications given as ordered at this time. Asked the pt if I could start an IV as she has only one IV and an amiodarone gtt at this time, and IV antibiotics scheduled for 9 am. Pt states that she cannot tolerate it at this time, states that she didn't realize that the RN had taken out the other IV. States that she doesn't want any further attempts at IV access for an hour. Will check back and attempt IV access again in an hour.
--- NOTE | 2020-04-10 11:11 | NUR ---
PT HAS COMPLAINED THIS AM THAT HER 2ND IV IN THE RAC WAS BOTHERSOME, IV WAS PATENT BUT APPEARS RED, PT STS THAT FLUSING IV MAKES PAIN WORSE. IV WAS DC PER PT REQUEST BUT IS EDUCATED THAT SHE WILL NEED A 2ND LINE STILL SHE HAS IV ANTIBIOTICS AND AMIODERONE RUNNING PT AGREES. BROADCAST FIELD SUPERVISOR AMY SENT TO ROOM FOR POWER GLIDE PLACEMENT WHICH PT REFUSED AND ASKED THAT STAFF RECHECK TO SEE IF SHE WOULD LIKE AN IV IN AN HOUR. PT WAS RECHECKED IN AN HOUR SHE STS "AM I ACTUALLY GOING TO IF I DON'T HAVE IT RIGHT NOW? NO!" AND REFUSED REPLACEMENT OF 2ND IV.
--- NOTE | 2020-04-10 16:37 | NUR ---
SHIFT NOTE PT HAS BEEN RESTING WELL IN BED T/O THE DAY. RAC IV REMOVED AND PRESSURE DRESSED. AMIODERONE HAS BEEN D/C TODAY. PT RECIEVING FLAGYL AND ROCEPHIN IVP. PT IS PLEASANT BUT AGITATED T/O THE DAY. GOOD PAIN CONTROL TODAY WITH FENTANYL AND PERCOCET.
--- NOTE | 2020-04-10 18:59 | NUR ---
echocardiogram complete
--- NOTE | 2020-04-10 19:15 | NUR ---
ASSUMED CARE RECEIVED REPORT BEDSIDE FROM MING BURGER; PT A&O; RECEIVING PAIN MEDICATIONS; VSS; O2 SATS >93 ON RA; PT STATES SHE IS FATIGUED; NO DISTRESS NOTED; CALL LIGHT IN REACH; BED IN LOWEST POSITION.
--- NOTE | 2020-04-11 05:28 | NUR ---
SHIFT SUMMARY PT A&O; IRRITABLE AT TIMES & PARTICULAR W/ CARE; VSS; DENIES CHEST PAIN; C/O CHRONIC BACK PAIN & ABDOMINAL PAIN; HEAT PAD IN PLACE; REPOSITIONING ENCOURAGED; MEDICATE 1X THIS SHIFT W/ FENTANYL & PERCOCET; PT SLEPT SEVERAL HOURS IN BETWEEN INTERVENTIONS; NO DISTRESS NOTED; CALL LIGHT IN REACH; BED IN LOWEST POSITION; WILL CONTINUE TO MONITOR CLOSELY UNTIL HAND OFF TO DAY SHIFT RN.
[2020-04-11 11:50] LABS: BASOPHILS ABSOLUTE AUTO 0.04 K/mm3 (0.00-0.23); BASOPHILS PERCENT AUTO 0 % (0-2); EOSINOPHILS PERCENT AUTO 1 % (0-6); Hematocrit 27.1 % (33.0-51.0); IMMATURE GRAN ABSOLUTE AUTO 0.18 K/mm3 (0.00-0.10); IMMATURE GRAN PERCENT AUTO 1 % (0-1); LYMPHOCYTES ABSOLUTE AUTO 1.31 K/mm3 (0.84-5.20); LYMPHOCYTES PERCENT AUTO 7 % (21-46); MONOCYTES ABSOLUTE AUTO 1.51 K/mm3 (0.16-1.47); MONOCYTES PERCENT AUTO 8 % (4-13); Mean Corpuscular HGB 32.4 pg (26.0-34.0); Mean Corpuscular HGB Conc 33.2 g/dL (31.5-36.5); Mean Corpuscular Volume 98 fL (80-100); Mean Platelet Volume 9.7 fL (9.1-12.4); NEUTROPHILS PERCENT AUTO 83 % (41-73); Platelet Count 269 K/mm3 (150-400); RDW Coefficient Variation 12.9 % (11.7-14.2); RDW Standard Deviation 45.5 fL (35.1-46.3); Red Blood Cell Count 2.78 M/mm3 (3.80-5.20); White Blood Cell Count 18.04 K/mm3 (4.00-11.30)
[2020-04-11 12:17] LABS: Albumin/Globulin Ratio 0.6 (0.8-1.8); Bilirubin, Total 0.5 mg/dL (0.1-1.0); Bun/Creatinine Ratio 31.6 (12.0-20.0); Calcium, Blood 7.3 mg/dL (8.5-10.1); Creatinine, Blood 1.14 mg/dL (0.40-1.00); Globulin, Blood 3.1 g/dL (2.2-4.0); Potassium, Blood 3.5 mmol/L (3.5-5.5); Thyroid Stimulating Hormone 5.79 uIU/mL (0.360-4.800); Total Protein, Blood 5.1 g/dL (6.4-8.2)
--- NOTE | 2020-04-11 16:14 | NUR ---
PT NAUSEATED, CALL PLACED TO DR JACKSON FOR RESUMPTION OF ZOFRAN, PT MEDICATED WITH ZOFRAN IVP WHICH WAS TOELRATED WELL. PT ASKS THAT CARDIZEM BE HELD UNTIL THE 1800 MED PASS, CARDIZEM WILL BE HELD UNTIL THEN PER REQUEST
--- NOTE | 2020-04-11 16:57 | NUR ---
SHIFT NOTE PT A/O X4. UP TO BEDSIDE COMMODE WITH ONE PERSON ASSIST. PT WITH LARGE BM THIS MORNING WHICH NAUSEATED HER. PT HAS HAD GOOD PAIN CONTROL T/O THE DAY. PT DID WORK WITH PHYSICAL THERAPY TODAY AND DID VERY WELL. PT IS LESS AGITATED TODAY, DOES REQUEST THAT MEDICATIONS BE GIVEN ON HER TIMELINE.
--- NOTE | 2020-04-11 17:28 | NUR ---
PHENERGAN 12.5MG ADMINISTERED VIA SLOW IVP WITH 20ML DILUTION FOR NAUSEA, IMMEDIATE RELIEF NOTED. ORAL MEDS ARE HELD AT THIS TIME FOR NAUSEA AND VOMITTING. PT REFUSED BEDPAN OR BEDSIDE COMMODE AT THIS TIME DESPITE REPORTING NEED TO URINATE
--- NOTE | 2020-04-11 22:29 | NUR ---
NO IV ACCESS PATIENT'S IV IS LEAKING AND PAINFUL TO PATIENT. PATIENT REFUSING TO HAVE NEW IV PLACED OR TO HAVE OLD IV REMOVED AT THIS TIME. PATIENT AWARE THAT SHE WILL NOT BE ABLE TO HAVE ANY IV MEDICATIONS AT THIS TIME. PATIENT REPORTS SHE WILL STAY NAUSOUS BUT SHE DOES NOT "WANT TO THINK ABOUT MY IV RIGHT NOW."
--- NOTE | 2020-04-12 00:51 | NUR ---
UPDATE PATIENT FINALLY ALLOWED STAFF TO PLACE A NEW IV. CALL OUT TO DR CELIS TO OBTAIN ADDITIONAL NAUSEA MEDICATION.
--- NOTE | 2020-04-12 01:15 | NUR ---
UPDATE DR CELIS NOTIFIED OF CONTINUED NAUSEA THAT WAS NEW ONSET EARLIER IN THE EVENING. NEW ORDER FOR NAUSEA MED, NO OTHER ORDERS GIVEN AT THIS TIME.
[2020-04-12 04:00] LABS: BASOPHILS ABSOLUTE AUTO 0.05 K/mm3 (0.00-0.23); BASOPHILS PERCENT AUTO 0 % (0-2); EOSINOPHILS ABSOLUTE AUTO 0.04 K/mm3 (0.00-0.68); EOSINOPHILS PERCENT AUTO 0 % (0-6); Hematocrit 28.6 % (33.0-51.0); Hemoglobin 9.3 g/dL (11.5-16.0); IMMATURE GRAN ABSOLUTE AUTO 0.22 K/mm3 (0.00-0.10); IMMATURE GRAN PERCENT AUTO 1 % (0-1); LYMPHOCYTES ABSOLUTE AUTO 1.67 K/mm3 (0.84-5.20); LYMPHOCYTES PERCENT AUTO 9 % (21-46); MONOCYTES ABSOLUTE AUTO 1.21 K/mm3 (0.16-1.47); MONOCYTES PERCENT AUTO 7 % (4-13); Mean Corpuscular HGB 31.2 pg (26.0-34.0); Mean Corpuscular HGB Conc 32.5 g/dL (31.5-36.5); Mean Corpuscular Volume 96 fL (80-100); Mean Platelet Volume 9.7 fL (9.1-12.4); NEUTROPHILS ABSOLUTE AUTO 15.51 K/mm3 (1.96-9.15); NEUTROPHILS PERCENT AUTO 83 % (41-73); Platelet Count 328 K/mm3 (150-400); RDW Coefficient Variation 12.9 % (11.7-14.2); RDW Standard Deviation 45.9 fL (35.1-46.3); Red Blood Cell Count 2.98 M/mm3 (3.80-5.20)
[2020-04-12 04:18] LABS: Bun/Creatinine Ratio 29.1 (12.0-20.0); Calcium, Blood 7.6 mg/dL (8.5-10.1); Creatinine, Blood 1.1 mg/dL (0.40-1.00); Potassium, Blood 3.7 mmol/L (3.5-5.5)
--- NOTE | 2020-04-12 06:30 | NUR ---
SHIFT SUMMARY PATIENT APPEARED TO SLEEP WELL THROUGHOUT THE NIGHT. ANY TIME PATIENT WAS AWAKE SHE WOULD COMPLAIN OF NAUSEA, HOWEVER, PATIENT WOULD QUICKLY FALL BACK TO SLEEP WHEN STAFF NOT TALKING TO PATIENT. PATIENT VERY IRRITABLE WITH VITAL SIGNS AND WITH ANY CARE. PATIENT MEDICATED FOR NAUSEA PER EMAR. WILL CONTINUE TO MONITOR PATIENT AND REPOR TO ONCOMING RN.
--- NOTE | 2020-04-12 08:05 | NUR ---
pt laying in bed awake a/ox3, pleasant and cooperative with care, follows commands well, states her pain is at an 8/10, but is much better and she is ok now, states she was very nausiated, but is better now, lungs are clear in upper sanchez, fine crackles to bases, dim bases, is on r/a, resp even and unlabored, no cough noted at this time, hrirr, tele in place running afib/flutter, in low 100's, no edema noted, ppp+2, cap refill <3sec, vs stable, afebrile, iv site is clear and patent, btx4, abd flat soft tender, states she's having bm's, voids without diff, skin has some brusing otherwise intact, derek russell, call light in reach.
--- NOTE | 2020-04-12 13:30 | NUR ---
PT SITTING IN CHAIR, WANTS TO GET BACK TO BED, ASSISTED HER TO BED, DID EVERYTHING POSSIBLE TO GET HER IN A COMFORTABLE PLACE, SHE IS VERY IRRITABLE, AND DEMANDING. GOT HER EYE GTTS REQUESTED, BUT OUR PHARMACY DOES NOT [facility], SHE IS UPSET, ASKING US TO GO TO THE STORE TO OBTAIN IT, GOT HER WHAT IS AVAILABLE, WANTS PAIN MEDS, ASKED CHARGE TO GIVE HER PAIN MEDS. CALL LIGHT IN REACH.
[2020-04-12 14:11] LABS: Adenovirus F 40/41 Not Detected (NOT DETECT); Astrovirus Not Detected (NOT DETECT); Campylobacter Sp Not Detected (NOT DETECT); Cryptosporidium Not Detected (NOT DETECT); Cyclospora Cayetanensis Not Detected (NOT DETECT); E. Coli O157 Not Detected (NOT DETECT); Entamoeba Histolytica Not Detected (NOT DETECT); Enteroaggregative E. coli-EAEC Not Detected (NOT DETECT); Enteropathogenic E. coli-EPEC Not Detected (NOT DETECT); Enterotoxigenic E. coli-ETEC Not Detected (NOT DETECT); Giardia Lamblia Not Detected (NOT DETECT); Norovirus GI/GII Not Detected (NOT DETECT); Plesiomonas Shigelloides Not Detected (NOT DETECT); Rotavirus A Not Detected (NOT DETECT); Salmonella Sp Not Detected (NOT DETECT); Sapovirus Not Detected (NOT DETECT); Shiga Toxin-prod E. coli-STEC Not Detected (NOT DETECT); Shigella/Enteroin E. coli-EIEC Not Detected (NOT DETECT); Vibrio Cholerae Not Detected (NOT DETECT); Vibrio Sp Not Detected (NOT DETECT); Yersinia Enterocolitica Not Detected (NOT DETECT)
--- NOTE | 2020-04-12 14:59 | NUR ---
ASSUMED CARE AT THIS TIME, REPORT FROM ISAEL KIRKLAND RN.
--- NOTE | 2020-04-12 16:30 | NUR ---
Attempted visit with pt this afternoon. Nurse is at bedside and changing dressings. Pt has a POLST on file in [facility]. It states DNR/DNI with comfort measures only. Pt currently full code. Will need to confirm status with pt, offer to help with a new document if she desires to change existing. She has just had some surgeries in [place]: She may be temporarily a Full code status following her operations. Palliative care to follow up as schedule allows.
--- NOTE | 2020-04-12 17:12 | NUR ---
Clinical Visit: Pt alert, oriented, pleasant. Reviewed POLST form with patient. She has an existing POLST that is outdated - in that her emergency contact is her and he has . She is wanting to fill out a new document to reflect her new situation. Reviewed interventions. She states that all advanced interventions are "horrifying." She still choses comfort measures only POLST with DNR/DNI. She states that if she ever comes into the hospital and cannot communicate, she would only want comfort measures. At such time as she returns to the hospital and is able to communicate, she will state what she wants at the time. New POLST filled out and signed by patient. Placed in cubby beside the room. Dr. Segovia ordering new code status. Dr. Manriquez will be patient's provider tomorrow.
--- NOTE | 2020-04-13 04:06 | NUR ---
SUMMARY PATIENT IS ALERT AND ORIENTED. PATIENT CAN BE PASSIVE AGGRESSIVE AND IS ANXIOUS. PATIENT REPOSITIONS INDEPENDENTLY IN BED, AND IS A 1 PERSON ASSIST TO BATHROOM WITH WALKER. PATIENT CALLS APPROPRIATELY. SLEPT MOST THE NIGHT. MEDICATED ONCE FOR NAUSEA. VSS, NO ACUTE CHANGES. 02 SATS >95% ON RA. CALL LIGHT IN REACH.
--- NOTE | 2020-04-13 09:28 | NUR ---
MEMO Zuleta assisted pt from bathroom after observing a soft, formed brown stool in the toilet. Pt c/o dizzyness with activity, transient nausea, and states that she can feel her heart pounding in her chest as well at times.
--- NOTE | 2020-04-13 11:44 | NUR ---
Pt denies any pain at this time. Dr. Manriquez here to see the pt. Plan is for CT scan of abdomen. POLST form (updated with palliative care RN's assistance) signed by Dr. Manriquez at this time. Left message with Ashleigh Christine that the form is signed and on the pt's chart. Pt has no c/o dyspnea, pain, nausea or dizzyness at this time while she is lying in bed. She ate a second breakfast which was given to her around 9 am. She states that she is not having pounding in her heart, but just a "funny, fluttering feeling, letting me know that my heart is there. But it is not supposed to be doing that."
--- NOTE | 2020-04-13 12:37 | NUR ---
IVF started now per orders prior to CT scan. verified with dr. Manriquez that start of NAC is now, also before CT scan. auto tech states will likely do the CT of the abdomen in about an hour. Pt is NPO at this time, clear liquids ok per auto tech.
--- NOTE | 2020-04-13 12:54 | NUR ---
Administered NAC pre- CT of abdomen. The pt refused her probiotic, states "those capsules are too hard to swallow".
--- NOTE | 2020-04-13 14:00 | NUR ---
PT back to room following CT. IVF continued. Assisted up to chair at her request.
--- NOTE | 2020-04-13 14:14 | NUR ---
Pt is requesting pain medication. States she has abdominal pain and chronic back pain.
--- NOTE | 2020-04-13 14:21 | NUR ---
Pt is filling out POLST Form with Ashleigh Christine, palliative care RN. Pt is still attempting to get her daughter Mary Beth's phone number, who is her executor.
--- NOTE | 2020-04-13 15:27 | NUR ---
Sitting up in chair, states pain is decreased from 9/10 to 7/10. She is pleasantly conversant, asking for phone numbers and making phone calls to her family and pharmacy.
--- NOTE | 2020-04-13 15:39 | NUR ---
Request received to follow up and process a newly completed POLST and get to medical records. Pt has completed a new one due to previous emergency contact was her and he is no longer living. Pt does not have contact info for her medical POA/daughter but is working on obtaining that. reviewed POLST with pt as she has checked comfort measures only but is receiving care currently that falls under the "Limited Treatment" description. This was reviewed with pt and I reviewed previous Palliative Care RN's notes. Pt stated that if she arrived to the hospital unconscious or unable to communicate with us to specify which treatment options she did or did not want, she would prefer comfort measures only. Pt would like me to review her POLST with her friend, Arianna, tomorrow during visiting hours. I am happy to do this and planned to meet with them tomorrow after 2 pm. Pt initialled where comfort measures only was crossed out and limited treatment was checked instead. Pt appears anxious and irritated. She rated her pain at a level 9 when asked by her RN, who was there with pain medication per pt's request. I had made a couple attempts to see pt earlier and she was in radiology first and then OT present for tx so I returned each time. Pt reported profound fatigue and was ready to return to bed after going to radiology for CT and sitting up in chair for a bit. Plan to resume advanced care planning conversation tomorrow with pt and her friend and to secure and document all of her emergency contacts and her surrogate decision maker's contact info. Once that is all clarified, confirmed and documented I will send newly updated POLST to Medical Records.
--- NOTE | 2020-04-13 18:55 | NUR ---
Dr. Manriquez here, and I spoke with her after she talked to the patient about possible aspiration tomorrow. Bonifacio noted dc'd in anticipation of the possibility.
--- NOTE | 2020-04-13 19:49 | NUR ---
Bedside report given to MING Pate.
[2020-04-14 04:26] LABS: BASOPHILS ABSOLUTE AUTO 0.04 K/mm3 (0.00-0.23); BASOPHILS PERCENT AUTO 0 % (0-2); EOSINOPHILS ABSOLUTE AUTO 0.09 K/mm3 (0.00-0.68); EOSINOPHILS PERCENT AUTO 1 % (0-6); Hematocrit 25.8 % (33.0-51.0); Hemoglobin 8.6 g/dL (11.5-16.0); IMMATURE GRAN ABSOLUTE AUTO 0.17 K/mm3 (0.00-0.10); IMMATURE GRAN PERCENT AUTO 1 % (0-1); LYMPHOCYTES PERCENT AUTO 13 % (21-46); MONOCYTES ABSOLUTE AUTO 1.17 K/mm3 (0.16-1.47); MONOCYTES PERCENT AUTO 7 % (4-13); Mean Corpuscular HGB 32.1 pg (26.0-34.0); Mean Corpuscular HGB Conc 33.3 g/dL (31.5-36.5); Mean Corpuscular Volume 96 fL (80-100); Mean Platelet Volume 9.6 fL (9.1-12.4); NEUTROPHILS ABSOLUTE AUTO 13.54 K/mm3 (1.96-9.15); NEUTROPHILS PERCENT AUTO 79 % (41-73); Platelet Count 383 K/mm3 (150-400); RDW Coefficient Variation 13.1 % (11.7-14.2); RDW Standard Deviation 46.5 fL (35.1-46.3); Red Blood Cell Count 2.68 M/mm3 (3.80-5.20); White Blood Cell Count 17.21 K/mm3 (4.00-11.30)
[2020-04-14 04:45] LABS: Bun/Creatinine Ratio 24.8 (12.0-20.0); Calcium, Blood 7.5 mg/dL (8.5-10.1); Creatinine, Blood 1.17 mg/dL (0.40-1.00); Magnesium, Blood 1.8 mg/dL (1.6-2.4); Potassium, Blood 3.4 mmol/L (3.5-5.5)
--- NOTE | 2020-04-14 05:49 | NUR ---
SHIFT SUMMARY: ASHLEY IS A&OX4 WITH SOME FORGETFULNESS NOTED. VSS, NO ACUTE EVENTS OVERNIGHT. SHE STATED THAT SHE WAS HAVING "AN ANXIETY ATTACK", DENYING HAVING HAD ONE BEFORE AND DENIED EVER HAVING TAKEN MEDICATION FOR ANXIETY IN THE PAST. ON-CALL PHYSICIAN NOTIFIED, NEW ORDER FOR ZYPREXA OBTAINED. PT RESTED COMFORTABLY FOR SEVERAL HOURS. SHE REPORTS THE TWO PERCOCET ADEQUATE AT RELIEVING HER PAIN. SHE HAS COMPLAINED OF THE SKIN ON HER LOWER BACK FEELING THOUGH IT WERE "ON FIRE". CREAM APPLIED AND PILLOWCASE PLACED AT PT'S REQUEST. SHE IS TOLERATING PO INTAKE. SHE DOES COMPLAIN OF NAUSEA WHICH SHE STATES HAS BEEN PRESENT SINCE BEFORE HER GALLBLADDER SURGERY. STERI STRIPS TO ABDOMEN INTACT, GAUZE COVERING PREVIOUS DRAIN TUBE SITE. SHE IS ABLE TO MAKE HER NEEDS KNOWN. SHE USES HER CALL LIGHT APPROPRIATELY. SHE IS A ONE PERSON ASSIST TO THE BATHROOM, BUT ELECTED TO USE THE BEDSIDE COMMODE THIS AM. SHE STATED THAT SHE IS FEELING WEAK AND DIZZY. SHE STATED THAT SHE FEELS DIZZY ANYTIME HER SYSTOLIC BLOOD PRESSURE IS BELOW 120. SHE IS LYING IN BED WITH HER CALL LIGHT IN REACH. IV TO R FOREARM PATENT. WILL REPORT TO DAY SHIFT RN.
--- NOTE | 2020-04-14 12:01 | NUR ---
Received zip lock back from screener/runner of home medications. Eye medications sent to pharmacy for verification and labeling. Two loose Percocet tablets placed in sterile specimen cup and walked to pharmacy for safe keeping during admission.
--- NOTE | 2020-04-14 13:17 | NUR ---
Brief visit to pt to finish updated POLST. She states her friend, Arianna, is not available to come in today as planned. Pt confirms her medical POA and another emergency contact would be her daughter, Donna Aggarwal, ph# [phone]. This was added to pt's self completed POLST and sent to medical records for scanning into her EMR. I asked pt if I could help her with anything else, while there. She wanted her kpad adjusted and right shoulder propped in a way that was more comfortable. I attempted to do this for her but it was not to pt's satisfaction or comfort. Pt requested that her aide help her to the chair for lunch. Nursing notified of pt's request.
--- NOTE | 2020-04-14 14:45 | NUR ---
Call from [employer] about an hour ago to notify that the pt was in sinus bradycardia, rate 30s-40s. NOtified Hodan Clifton, who checked on the pt and took a set of vital signs. Call was made to Dr. Correia, and new orders received to adjust oral medications. Telephone report given by Hodan Clifton to Nevaeh Valentine. Pt is transferring to medical floor with telemetry.
--- NOTE | 2020-04-14 14:55 | NUR ---
IN HOUSE TRANSFER PT HAS BEEN TRANSFERRED TO MEDICAL FLOOR. DR. SCOTT HAS ADDRESSED THE BRADYCARDIA AND ADJUSTED MEDS. REPORT GIVEN TO CHERRY LAI ON MEDICAL, PT LEFT THE FLOOR AT 1455 HR IN THE 60S AT THE TIME OF TRANSFER
--- NOTE | 2020-04-14 15:59 | NUR ---
ARRIVES TO THE FLOOR AROUND 1500.ALERT. ORIENTED. LUNGS CLEAR. TELE ON AND PER TECH SB AT 50. HEART RATE HAS BEEN 40-60'S LAST FEW HOURS PER PCU TECH. MEDICATED FOR CHRONIC NECK/BACK PAIN. STERI STRIPS TO ABD DRY, INTACT WITH NO SIGNS INFECTION UNDERNEATH. RT ABD SM SURGICAL SITE DRY, HEALING , CLOSED WITH NO SIGNS OF INFECTION. IV RT F.A. WRAPPED WITH COBAN. AWARE NPO AFTER MIDNITE FOR RADIOLOGIST GUIDED CT. WCTM
--- NOTE | 2020-04-15 04:07 | NUR ---
SHIFT SUMMARY ADMITTED FOR AFIB W/RVR & SEPSIS. DNR CODE. PLAN IS FOR CT GUIDED ASPIRATION OF FLUID COLLECTION FOLLOWING PREVIOUS LAP CHOLI/STENT SURGERY AT [facility]. TELEMETRY: BRADYCARDIA W/PVC'S @ 50 BPM. PT'S LAST DOSE OF XARELTO WAS ON 04/13. PT HAS BEEN NPO SINCE MIDNIGHT THIS SHIFT. SHE INFORMS ME THAT SHE DOES NOT WANT A BLOOD TRANSFUSION, SHOULD THAT SITUATION ARISE. HX: AFIB, CAD-STENT, HTN, HYPOTHYROID.
[2020-04-15 05:35] LABS: BASOPHILS ABSOLUTE AUTO 0.06 K/mm3 (0.00-0.23); BASOPHILS PERCENT AUTO 0 % (0-2); EOSINOPHILS ABSOLUTE AUTO 0.14 K/mm3 (0.00-0.68); EOSINOPHILS PERCENT AUTO 1 % (0-6); Hemoglobin 7.8 g/dL (11.5-16.0); IMMATURE GRAN ABSOLUTE AUTO 0.18 K/mm3 (0.00-0.10); IMMATURE GRAN PERCENT AUTO 1 % (0-1); LYMPHOCYTES PERCENT AUTO 18 % (21-46); MONOCYTES ABSOLUTE AUTO 1.09 K/mm3 (0.16-1.47); MONOCYTES PERCENT AUTO 8 % (4-13); Mean Corpuscular HGB 31.6 pg (26.0-34.0); Mean Corpuscular HGB Conc 32.5 g/dL (31.5-36.5); Mean Corpuscular Volume 97 fL (80-100); NEUTROPHILS PERCENT AUTO 71 % (41-73); Platelet Count 366 K/mm3 (150-400); RDW Coefficient Variation 13.2 % (11.7-14.2); RDW Standard Deviation 47.5 fL (35.1-46.3); Red Blood Cell Count 2.47 M/mm3 (3.80-5.20); White Blood Cell Count 13.47 K/mm3 (4.00-11.30)
[2020-04-15 06:00] LABS: Albumin, Blood 1.9 g/dL (3.4-5.0); Albumin/Globulin Ratio 0.6 (0.8-1.8); Bilirubin, Total 0.5 mg/dL (0.1-1.0); Bun/Creatinine Ratio 21.8 (12.0-20.0); Calcium, Blood 7.6 mg/dL (8.5-10.1); Creatinine, Blood 1.33 mg/dL (0.40-1.00); Globulin, Blood 3.3 g/dL (2.2-4.0); Potassium, Blood 3.7 mmol/L (3.5-5.5); Total Protein, Blood 5.2 g/dL (6.4-8.2)
--- NOTE | 2020-04-15 19:35 | NUR ---
SHIFT SUMMARY: NO ACUTE CHANGES TO REPORT THIS SHIFT. PT A&O; CALM AND COOPERATIVE WITH CARE. MEDICATED FOR CHRONIC BACK/SHOULDER PAIN PER EMAR. ABD FLUID COLLECTION THIS SHIFT; PATIENT REFUSING PLACEMENT OF DRAIN. CARDIOLOGY (DR SCOTT) FOLLOWING. IV ABX CONTINUING. REPORT GIVEN TO ONCOMING RN.
--- NOTE | 2020-04-16 04:12 | NUR ---
SHIFT SUMMARY ADMITTED FOR AFIB W/RVR. DNR CODE. TELEMETRY: NSR W/PVC'S @ 62 BPM. AT TIMES SHE IS BRADYCARDIC. SHE DOES AMBULATE TO THE BATHROOM W/FWW, 1 ASSIST. SHE IS MOTIVATED TO WALK MORE. 1 L IV FLUIDS INFUSED THIS SHIFT. IV ANTIBIOTICS ARE SCHEDULED. SHE EXPRESSES CONCERN THAT SHE IS NOT GETTING HER HOME DOSE OF MAGNESIUM HERE IN THE HOSPITAL. I DID INFORM HER THAT HER MAGNESIUM LABS HAVE BEEN WNL. PAIN MEDICATION GIVEN ONCE THIS SHIFT. NO NEW CONCERNS.
[2020-04-16 04:57] LABS: BASOPHILS ABSOLUTE AUTO 0.05 K/mm3 (0.00-0.23); BASOPHILS PERCENT AUTO 0 % (0-2); EOSINOPHILS ABSOLUTE AUTO 0.06 K/mm3 (0.00-0.68); EOSINOPHILS PERCENT AUTO 0 % (0-6); Hematocrit 24.3 % (33.0-51.0); Hemoglobin 7.9 g/dL (11.5-16.0); IMMATURE GRAN ABSOLUTE AUTO 0.18 K/mm3 (0.00-0.10); IMMATURE GRAN PERCENT AUTO 1 % (0-1); LYMPHOCYTES PERCENT AUTO 10 % (21-46); MONOCYTES ABSOLUTE AUTO 1.01 K/mm3 (0.16-1.47); MONOCYTES PERCENT AUTO 7 % (4-13); Mean Corpuscular HGB 31.6 pg (26.0-34.0); Mean Corpuscular HGB Conc 32.5 g/dL (31.5-36.5); Mean Corpuscular Volume 97 fL (80-100); Mean Platelet Volume 9.7 fL (9.1-12.4); NEUTROPHILS ABSOLUTE AUTO 11.94 K/mm3 (1.96-9.15); NEUTROPHILS PERCENT AUTO 82 % (41-73); Platelet Count 375 K/mm3 (150-400); RDW Coefficient Variation 13.4 % (11.7-14.2); White Blood Cell Count 14.64 K/mm3 (4.00-11.30)
[2020-04-16 05:16] LABS: Bun/Creatinine Ratio 22.4 (12.0-20.0); Calcium, Blood 7.5 mg/dL (8.5-10.1); Creatinine, Blood 1.07 mg/dL (0.40-1.00); Potassium, Blood 3.9 mmol/L (3.5-5.5)
--- NOTE | 2020-04-16 19:39 | NUR ---
SHIFT SUMMARY: NO ACUTE EVENTS TO REPORT THIS SHIFT. PT A&O; IRRITABLE; COOPERATIVE WITH CARE. MEDICATED FOR CHRONIC BACK PAIN PER EMAR. TELE IN PLACE; SR c BBB IN 70S PER ADJUNCT INSTRUCTOR CHEMISTRY; CARDIOLOGY FOLLOWING. PT & OT FOLLOWING. IV ABX CONTINUING. REPORT GIVEN TO ONCOMING RN.
--- NOTE | 2020-04-17 00:26 | NUR ---
04/16/201999 PT RESTING COMFORTABLY IN BED; ALERT AND ORIENTED X 4.
--- NOTE | 2020-04-17 03:31 | NUR ---
SHIFT SUMMARY: 84 Y/O FEMALE RESTED COMFORTABLY IN BED; ABD INCISIONS AFTER RECENT CHOLECYSTECTOMY ON 04/01 WELL APPROXIMATED; ALERT AND ORIENTED X 4; HAPPY AND COOPERATIVE; +2 PITTING EDEMA BILATERAL LOWER EXTREMITIES NOTED; TELEMETRY REFLECTS NSR PER SEBASTIAN--KILN LOADER; BED LOW POSITION WITH CALL LIGHT AT SIDE.
[2020-04-17 04:58] LABS: BASOPHILS ABSOLUTE AUTO 0.06 K/mm3 (0.00-0.23); BASOPHILS PERCENT AUTO 0 % (0-2); EOSINOPHILS PERCENT AUTO 1 % (0-6); Hematocrit 25.4 % (33.0-51.0); Hemoglobin 8.2 g/dL (11.5-16.0); IMMATURE GRAN ABSOLUTE AUTO 0.12 K/mm3 (0.00-0.10); IMMATURE GRAN PERCENT AUTO 1 % (0-1); LYMPHOCYTES ABSOLUTE AUTO 2.13 K/mm3 (0.84-5.20); LYMPHOCYTES PERCENT AUTO 15 % (21-46); MONOCYTES ABSOLUTE AUTO 1.18 K/mm3 (0.16-1.47); MONOCYTES PERCENT AUTO 9 % (4-13); Mean Corpuscular HGB 31.4 pg (26.0-34.0); Mean Corpuscular HGB Conc 32.3 g/dL (31.5-36.5); Mean Corpuscular Volume 97 fL (80-100); Mean Platelet Volume 9.7 fL (9.1-12.4); NEUTROPHILS ABSOLUTE AUTO 10.27 K/mm3 (1.96-9.15); NEUTROPHILS PERCENT AUTO 74 % (41-73); Platelet Count 406 K/mm3 (150-400); RDW Coefficient Variation 13.6 % (11.7-14.2); RDW Standard Deviation 48.1 fL (35.1-46.3); Red Blood Cell Count 2.61 M/mm3 (3.80-5.20); White Blood Cell Count 13.86 K/mm3 (4.00-11.30)
--- NOTE | 2020-04-17 18:24 | NUR ---
SHIFT SUMMARY PT WITH NAUSEA AND RETCHING THIS MORNING AFTER GETTING UP TO BATHROOM AND SITTING IN CHAIR FOR A SHORT TIME. TREATED AND REFUSED BREAKFAST. ASSISTED BACK TO BED AND FELL ASLEEP. HAS BEEN FEELING BETTER DAY HAS PROGRESSED. P.T. IN TO SEE PT AND AMBULATED IN HALLWAY USING FWW AND GAIT BELT. STATES SHE FEELS SO WEAK IN COMPARISON TO WHEN SHE ARRIVED. COLORING MUCH IMPROVED THIS EVENING. MEDICATED FOR LOW BACK AND R FLANK PAIN TWICE. NO RESP DISTRESS NOTED.
--- NOTE | 2020-04-18 05:40 | NUR ---
SHIFT SUMMARY PT COMPLAINING OF PAIN IN BLE'S AT START OF SHIFT. STATING THAT THE PAIN FELT LIKE "SHOCKING" OR "ELECTRICITY". EDEMA NOTED TO BILATERAL LOWER EXTREMETIES. MORE SEVERE IN FEET. BLE'S ELEVATED ON PILLOW. HEATING PAD PROVIDED AND MEDICATED PT WITH 2 TABS OF 5/325 PERCOCET. PAIN LESSENED AND PT FELL ASLEEP. NO DIARRHEA NOTED THIS SHIFT. PT DID HAVE ONCE SMALL FORMED SOFT BROWN BM. TELEMETRY READING SR W/ BBB AND PVC'S AT 70. NO COMPLAINTS OF CHEST PAIN OR SOB. PT DOES REPORT PAIN TO BACK THAT IS CHRONIC AND R FLANK FROM RECENT HOSPITALIZATIONS. PERCOCET EFFECTIVE FOR THIS WELL. PT COMPLAINS OF FEELING WEAK AND IS ANXIOUS AT TIMES ABOUT HOW UNWELL SHE IS FEELING. VITAL SIGNS HAVE BEEN STABLE. NO ACUTE CHANGES THIS SHIFT. WILL CONTINUE TO MONITOR AND REPORT TO DAY RN.
[2020-04-18] MEDS ORDERED: ACET325 PO (10:22)
[2020-04-18] MEDS ORDERED: METO25 PO (10:23)
[2020-04-18] MEDS ORDERED: SENN187 PO (10:25)
[2020-04-18] MEDS ORDERED: PROBIOTIC PO (10:26)
--- NOTE | 2020-04-18 15:30 | NUR ---
DISCHARGE INSTRUCTIONS COMPLETED AND DISCUSSED WITH PT EXXPRESSING UNDERSTANDING. SCRIPTS FAXED TO [facility] AT THE [facility] AND HEARING AID ASSISTANT PICKED THEM UP PRIOR TO PICKING PT UP. TO [facility] VIA W/C.
== END 2020-04-18 15:51 | disposition home health service (06) | DRG 871 ==
LOC: ER 10:38 → PCU 12:24 → MEDS 04-14 14:56
PROVIDERS: Emergency Medicine; Internal Medicine; Internal Medicine Cardiovascular Disease; Nurse Practitioner Acute Care; ADMIT Internal Medicine
DX: A41.9 Sepsis, unspecified organism (principal); I50.33 Acute on chronic diastolic (congestive) heart failure; N17.9 Acute kidney failure, unspecified; I48.19 Other persistent atrial fibrillation; Z79.01 Long term (current) use of anticoagulants; I25.10 Atherosclerotic heart disease of native coronary artery without angina pectoris; E03.9 Hypothyroidism, unspecified; G89.4 Chronic pain syndrome; E78.5 Hyperlipidemia, unspecified; Z96.641 Presence of right artificial hip joint; E88.09 Other disorders of plasma-protein metabolism, not elsewhere classified; F32.9 Major depressive disorder, single episode, unspecified; Z95.5 Presence of coronary angioplasty implant and graft; I25.2 Old myocardial infarction; Z66 Do not resuscitate; Z51.5 Encounter for palliative care; I45.4 Nonspecific intraventricular block; I11.0 Hypertensive heart disease with heart failure; Z95.828 Presence of other vascular implants and grafts
CPT/HCPCS: 0097U; 36415; 49406; 71045; 74177; 80048; 80053; 81003; 83605; 83735; 83880; 84145; 84443; 84484; 85025; 85610; 87040; 87070; 87075; 87205; 93005; 93010; 93306; 96374; 97110; 97116; 97161; 97166; 97530; 97535; 99291-25; A9270; A9270-GY; J0282; J0456; J0696; J1940; J2405; J2550; J2765; J3010; J7030; J7050; J7060; P9046; Q9967

== ENCOUNTER → 2020-06-30 | Outpatient (CLI) | payer MEDICARE, BC ==
[~2020-06-30] MED LIST changes: +ACET325 PO; +ATOR40TA PO; +ELIQUIS5 M2 PO; +KLOR-CON 1010 MEQ PO; +LEVSOD75 PO; +MAGOXI400 PO; +METO25 PO; +PROBIOTIC PO; +SENN187 PO; +TORS10 PO
== END | disposition home or self-care (01) ==
LOC: LAB SHORT 13:20 → LAB 13:20
DX: L57.0 Actinic keratosis (principal); L28.0 Lichen simplex chronicus
CPT/HCPCS: 88305

== ENCOUNTER → 2021-01-13 | Outpatient (CLI) | payer MEDICARE, BC ==
[2021-01-14 10:33] LABS: Candida species (DNA Probe) Negative (NEGATIVE); G. vaginalis (DNA Probe) Negative (NEGATIVE); T. vaginalis (DNA Probe) Negative (NEGATIVE)
== END | disposition home or self-care (01) ==
LOC: LAB 13:55 → LAB SHORT 13:55
PROVIDERS: Family Medicine
DX: R30.9 Painful micturition, unspecified (principal)
CPT/HCPCS: 87086; 87480; 87510; 87660

== ENCOUNTER 2021-01-30 02:02 | Inpatient (IN) | payer MEDICARE, BC ==
[~2021-01-30] VITALS: Ht 165.1 cm; Wt 55.8 kg
[~2021-01-30 02:02] MED LIST changes: -METO25 PO
[2021-01-30 02:43] LABS: BASOPHILS ABSOLUTE AUTO 0.06 K/mm3 (0.00-0.23); BASOPHILS PERCENT AUTO 1 % (0-2); EOSINOPHILS ABSOLUTE AUTO 0.24 K/mm3 (0.00-0.68); EOSINOPHILS PERCENT AUTO 3 % (0-6); Hematocrit 37.1 % (33.0-51.0); Hemoglobin 12.1 g/dL (11.5-16.0); IMMATURE GRAN ABSOLUTE AUTO 0.02 K/mm3 (0.00-0.10); IMMATURE GRAN PERCENT AUTO 0 % (0-1); LYMPHOCYTES ABSOLUTE AUTO 3.23 K/mm3 (0.84-5.20); LYMPHOCYTES PERCENT AUTO 38 % (21-46); MONOCYTES ABSOLUTE AUTO 0.68 K/mm3 (0.16-1.47); MONOCYTES PERCENT AUTO 8 % (4-13); Mean Corpuscular HGB 32.7 pg (26.0-34.0); Mean Corpuscular HGB Conc 32.6 g/dL (31.5-36.5); Mean Corpuscular Volume 100 fL (80-100); Mean Platelet Volume 10.1 fL (9.1-12.4); NEUTROPHILS ABSOLUTE AUTO 4.27 K/mm3 (1.96-9.15); NEUTROPHILS PERCENT AUTO 50 % (41-73); Platelet Count 166 K/mm3 (150-400); RDW Coefficient Variation 12.8 % (11.7-14.2); RDW Standard Deviation 46.9 fL (35.1-46.3)
[2021-01-30] MEDS ORDERED: TORSE20 PO (02:55)
[2021-01-30] MEDS ORDERED: OLOPATADINE HC2.5 ML (02:56)
[2021-01-30] MEDS ORDERED: RESTASIS MULTI1.5 ML (02:56)
[2021-01-30 03:10] LABS: Albumin, Blood 3.3 g/dL (3.4-5.0); Bilirubin, Total 0.3 mg/dL (0.1-1.0); Bun/Creatinine Ratio 22.5 (12.0-20.0); Calcium, Blood 8.5 mg/dL (8.5-10.1); Creatinine, Blood 1.2 mg/dL (0.40-1.00); Free Thyroxine 1.15 ng/dL (0.70-1.60); Globulin, Blood 3.3 g/dL (2.2-4.0); Potassium, Blood 4.1 mmol/L (3.5-5.5); Thyroid Stimulating Hormone 2.01 uIU/mL (0.360-4.800); Total Protein, Blood 6.6 g/dL (6.4-8.2); Troponin I 0.03 ng/mL (0.000-0.040)
[2021-01-30 04:41] LABS: SARS-Cov-2 (COVID-19) PCR, MMC NEGATIVE (NEGATIVE)
--- NOTE | 2021-01-30 04:48 | NUR ---
PHONE REPORT RECEIVED FROM DRONE OPERATOR- PT COMING TO ROOM ICU 16 ON DOPAMINE GTT 2.5 MCG/KG/HR FOR RJ. ON RA.
--- NOTE | 2021-01-30 05:31 | NUR ---
0505 PT ARRIVED IN ICU ROOM 16 VIA STRETCHED. A&O-ON RA, PLACED ON MONITOR-IN SB RATE 50'S-ON DOPAMINE GTT @ 2.5 MCK/KG/MIN. 0520- JO BROOKS AT BEDSIDE ASSESSMENT DONE ON PT. PLAN: WAIT FOR METOPROLOL TO WHERE OFF-MAY TAKE FEW DAYS-REASSESS HR THEN- ALSO WAIT FOR PACER IF NEEDED DUE TO PT WAS TAKING ELEQUIS. CONTINUE DOPAMINE GTT-GET EKG NOW. CONTINUE ASSESSMENTS AND CARE.
--- NOTE | 2021-01-30 19:11 | NUR ---
The patient remains on a dopamine drip at a rate of 2 mcgs. Heart rate is in the high 50's. The patient continues to complain of right shoulder pain. IV push fentanyl is being administered for pain relief.
[2021-01-31 04:04] LABS: BASOPHILS ABSOLUTE AUTO 0.04 K/mm3 (0.00-0.23); BASOPHILS PERCENT AUTO 1 % (0-2); EOSINOPHILS ABSOLUTE AUTO 0.19 K/mm3 (0.00-0.68); EOSINOPHILS PERCENT AUTO 3 % (0-6); Hemoglobin 11.8 g/dL (11.5-16.0); IMMATURE GRAN ABSOLUTE AUTO 0.01 K/mm3 (0.00-0.10); IMMATURE GRAN PERCENT AUTO 0 % (0-1); LYMPHOCYTES ABSOLUTE AUTO 2.44 K/mm3 (0.84-5.20); LYMPHOCYTES PERCENT AUTO 41 % (21-46); MONOCYTES ABSOLUTE AUTO 0.46 K/mm3 (0.16-1.47); MONOCYTES PERCENT AUTO 8 % (4-13); Mean Corpuscular HGB 32.8 pg (26.0-34.0); Mean Corpuscular HGB Conc 32.8 g/dL (31.5-36.5); Mean Corpuscular Volume 100 fL (80-100); Mean Platelet Volume 9.7 fL (9.1-12.4); NEUTROPHILS ABSOLUTE AUTO 2.84 K/mm3 (1.96-9.15); NEUTROPHILS PERCENT AUTO 47 % (41-73); Platelet Count 142 K/mm3 (150-400); RDW Coefficient Variation 12.7 % (11.7-14.2); RDW Standard Deviation 47.2 fL (35.1-46.3); White Blood Cell Count 5.98 K/mm3 (4.00-11.30)
[2021-01-31 04:27] LABS: Bun/Creatinine Ratio 22.4 (12.0-20.0); Calcium, Blood 8.6 mg/dL (8.5-10.1); Creatinine, Blood 0.98 mg/dL (0.40-1.00); Potassium, Blood 3.8 mmol/L (3.5-5.5)
--- NOTE | 2021-01-31 07:11 | NUR ---
SHIFT SUMMARY PATIENT SLEPT WELL THRU NIGHT. HR MAINTAINED ~ 52-65 THRU NIGHT, BP STABLE ON DOPAMINE. AFTER VISIT BY DR CAI, SUGGESTED STOPPING DOPAMINE DRIP; OFF @ 06:10, AND OF THE TYPING OF THIS NOTE BP STABLE, HR = 54. PAIN WELL CONTROLLED THRU NIGHT WITH AVAILABLE PRN FENTANYL. ASSESSMENT IS CHARTED. VSS. WILL CONTINUE TO MONITOR.
--- NOTE | 2021-01-31 13:32 | NUR ---
ADMIT:01/30/21 DISCHARGE: DX: Bradycardia CC: kwilcox LYNN CALL: RESIDENCE: [facility] EMERGENCY CONTACT: GLYNN ALVARADO CAREGIVER: Arianna Samuel, Other / Not Listed, DX: Abd pain, Afib with RVR, bradycardia, see list DME: wound care supplies CCM: Chronic pain (opioid use) HOME HEALTH: [facility] - SUMMARY: (Admit: 01/30/21) 01/31/21- Dr. Huang saw pt this morning, will try d/c dopamine and assess heart rate. If pt continues to have bradycardia, he will place a pacemaker tomorrow morning. D/C plan is potentially for tomorrow as long as cardiology clears the pt for d/c and she does not need a pacemaker. -moni
--- NOTE | 2021-01-31 18:39 | NUR ---
TRANSFER NOTE/SHIFT SUMMARY RECIEVED REPORT FROM RADIATOR FITTER. PT TO ROOM VIA WHEELCHAIR AT APPROX 1530. PT 1 PERSON ASSIST TRANSFERED TO BED. PT ORINTED TO ROOM AND CALL LIGHT. PT A&Ox4; PT REPORTS ANXIETY REGARDING POSSIBLITY OF PROCEDURE TOMORROW; STATES SHE TAKES AND ANTI ANXIETY MEDICATION PRIOR TO PROCEDURES AN OUTPATIENT; CONFIRMED PT TOOK ATIVAN 0.5 MG PO PRIOR TO LAST PROCEDURE. PT REPORT SLIGHT DIZZINESS WITH AMBULATION. PT REPORTS RIGHT SHOULDER PAIN, MEDICATED PER EMAR. PT DENIES CHEST PAIN, NAUSEA, SOB AND NUMBNESS/TINGLING. ELEVATED BP NOTED. SINUS RJ 50'S, OTHER VSS. NO OTHER ACUTE CHANGES NOTED. WILL CONTINUE TO MONITOR UNTIL REPORT GIVEN TO ONCOMING RN.
--- NOTE | 2021-02-01 09:38 | NUR ---
AM NOTE PT A&Ox4; ANXIOUS. PT 1 PERSON ASSIST WITH WALKER TO BATHROOM. PT REPORTS 7/10 PAIN THE RIGHT SHOULDER, WILL MEDICATE PER EMAR. PT REPORTS DIZZINESS WITH AMBULATION. PT DENIES SOB, NAUSEA AND DIZZINESS. PER TELE PT SINUS RJ 40-50'S. BP ELEVATED. OTHER VSS. NO OTHER ACUTE CHANGES NOTED. WILL CONTINUE TO MONITOR. AWAITING VISIT FROM CARDIOLOGY FOR UPDATE ON PLAN OF CARE.
--- NOTE | 2021-02-01 11:59 | NUR ---
Patient is sitting up in bed and alert. Patient tells me about her medical history and the events that led to her hospitalization. Patient tells me about her frustrations with doctors (in general), and about her desire to not come back to any hospital. She tells me that she would not have called 911 and let herself except that it hurt so bad that she could not manage it. She tells me that she has lived a full life and is ready to go. She talks about her belief in God and how she was raised by a father who was an glue machine operator. She still finds strength in prayer but she also has enjoyed a good stiff drink. I normalize her experience, reinforce helpful attitudes and practices and provide therapeutic listening and a calming presence. Patient responds well and shows signs of an elevated mood. Patient voices appreciation for the visit. I will continue to remain available.
[2021-02-01] MEDS ORDERED: METO25 PO (12:08)
[2021-02-01] MEDS ORDERED: AMLO5 PO (12:09)
--- NOTE | 2021-02-01 12:15 | NUR ---
02/01/21- PER CHART REVIEW WITH DR. SOTO, PT IS STABLE TO DISCHARGE. ATTEMPTED TO CALL FRIEND, LIL AND LMOM TO DISCUSS DISCHARGE. MET WITH PT, DISCUSSED DISCHARGE AND SCHEDULED HER A HOSPITAL F/U APPT WITH DR. STEEN ON 02/04/21 @ 1:20. PT ALSO REPORTS THAT SHE HAS A F/U APPT WITH HER INTAKE CLINICIAN ON 02/14/21. PT WILL CONTACT FRIEND TO COME GET HER FROM THE HOSPITAL. -AYAZ
--- NOTE | 2021-02-01 13:29 | NUR ---
UPDATE DISCHARGE INSTRUCTIONS PROVIDED TO PT. PT EDUCATED ON MEDICATION CHANGES AND NEW MEDICATIONS. [facility] TO DELIVER NEW MEDICATION TO PT'S HOME. PT AWAITING RIDE. ALL QUESTIONS ANSWERED.
--- NOTE | 2021-02-01 14:21 | NUR ---
SPOKE WITH DR CAI THIS AM, WITH HR BEING 40-50'S BP STABLE, PLANS TO DISCHARGE HOME, RESTART ELIQUIS AND DISCONTINUE METORPOLOL; GIVE 250 CC BOLUS PRIOR TO D/C. NOTIFIED DR SOTO. PT MEDICATED FOR SHOULDER PAIN. VSS NO OTHER ACUTE CHANGES NOTED. MING LINARES EDUCATED PT ON DISCHARGE INSTURCIONS, MEDICATIONS AND FOLLOW UP APPOIONTMENTS. PT LEFT ROOM VIA WHEELCHAIR AT 1350. PRESCRIPTION CALLED INTO [facility].
== END 2021-02-01 13:50 | disposition home or self-care (01) | DRG 310 ==
LOC: ER 02:02 → ICUW 04:13 → PCU 01-31 15:07
PROVIDERS: Internal Medicine; Student in an Organized Health Care Education/Training Program; ADMIT Family Medicine
DX: R00.1 Bradycardia, unspecified (principal); I95.9 Hypotension, unspecified; I48.20 Chronic atrial fibrillation, unspecified; I25.10 Atherosclerotic heart disease of native coronary artery without angina pectoris; E03.9 Hypothyroidism, unspecified; Z20.822 Contact with and (suspected) exposure to COVID-19; Z95.5 Presence of coronary angioplasty implant and graft; F32.9 Major depressive disorder, single episode, unspecified; Z66 Do not resuscitate; F41.9 Anxiety disorder, unspecified; I44.7 Left bundle-branch block, unspecified; Z88.8 Allergy status to other drugs, medicaments and biological substances; E78.5 Hyperlipidemia, unspecified; G89.29 Other chronic pain; Z90.49 Acquired absence of other specified parts of digestive tract; Z98.890 Other specified postprocedural states; Z96.641 Presence of right artificial hip joint; Z79.899 Other long term (current) drug therapy; N18.30 Chronic kidney disease, stage 3 unspecified; I12.9 Hypertensive chronic kidney disease with stage 1 through stage 4 chronic kidney disease, or unspecified chronic kidney disease; M25.511 Pain in right shoulder; I25.2 Old myocardial infarction
CPT/HCPCS: 36415; 71045; 80048; 80053; 83036; 83735; 84100; 84439; 84443; 84484; 85025; 93005; 93010; 93306; 96365; 96375; 99285-25; A9270; J0461; J1265; J1885; J2405; J3010; J7030; J7050; U0004

== ENCOUNTER 2021-02-09 05:32 | Inpatient (IN) | payer MEDICARE, BC ==
[~2021-02-09] VITALS: Ht 165.1 cm; Wt 55.4 kg
[~2021-02-09 05:32] MED LIST changes: +AMLO5 PO; +METO25 PO; +OLOPATADINE HC2.5 ML BOTHEYES; +RESTASIS MULTI1.5 ML
[2021-02-09 05:50] LABS: BASOPHILS ABSOLUTE AUTO 0.06 K/mm3 (0.00-0.23); BASOPHILS PERCENT AUTO 1 % (0-2); EOSINOPHILS ABSOLUTE AUTO 0.18 K/mm3 (0.00-0.68); EOSINOPHILS PERCENT AUTO 2 % (0-6); Hematocrit 40.3 % (33.0-51.0); Hemoglobin 13.4 g/dL (11.5-16.0); IMMATURE GRAN ABSOLUTE AUTO 0.03 K/mm3 (0.00-0.10); IMMATURE GRAN PERCENT AUTO 0 % (0-1); LYMPHOCYTES PERCENT AUTO 24 % (21-46); MONOCYTES ABSOLUTE AUTO 0.77 K/mm3 (0.16-1.47); MONOCYTES PERCENT AUTO 9 % (4-13); Mean Corpuscular HGB 32.4 pg (26.0-34.0); Mean Corpuscular HGB Conc 33.3 g/dL (31.5-36.5); Mean Corpuscular Volume 97 fL (80-100); Mean Platelet Volume 9.9 fL (9.1-12.4); NEUTROPHILS ABSOLUTE AUTO 5.76 K/mm3 (1.96-9.15); NEUTROPHILS PERCENT AUTO 64 % (41-73); Platelet Count 182 K/mm3 (150-400); RDW Coefficient Variation 12.4 % (11.7-14.2); RDW Standard Deviation 44.6 fL (35.1-46.3); Red Blood Cell Count 4.14 M/mm3 (3.80-5.20)
[2021-02-09 06:16] LABS: Alanine Aminotransfer (ALT/SGP 22 U/L (12-78); Albumin, Blood 3.8 g/dL (3.4-5.0); Albumin/Globulin Ratio 1.1 (0.8-1.8); Alk Phos 187 U/L (50-136); Anion Gap 8 mmol/L (6-16); Aspartate Aminotrans (AST/SGOT 32 U/L (12-37); Bilirubin, Total 0.7 mg/dL (0.1-1.0); Blood Urea Nitrogen 14 mg/dL (8-24); Bun/Creatinine Ratio 14.9 (12.0-20.0); CO2, Blood 24 mmol/L (21-32); Calcium, Blood 8.8 mg/dL (8.5-10.1); Chloride, Blood 102 mmol/L (98-108); Creatinine, Blood 0.94 mg/dL (0.40-1.00); Globulin, Blood 3.4 g/dL (2.2-4.0); Glomerular Filtration Rate 57 (60-); Glucose, Blood 124 mg/dL (70-99); Magnesium, Blood 1.9 mg/dL (1.6-2.4); Potassium, Blood 3.8 mmol/L (3.5-5.5); Sodium, Blood 134 mmol/L (136-145); Total Protein, Blood 7.2 g/dL (6.4-8.2); Troponin I <0.015 ng/mL (0.000-0.040)
[2021-02-09 10:18] LABS: SARS-Cov-2 (COVID-19) PCR, MMC NEGATIVE (NEGATIVE)
[2021-02-09] MEDS ORDERED: TORS10 PO (11:49)
[2021-02-09] MEDS ORDERED: OXYCODONE-ACET1 EAC2 PO (11:50)
[2021-02-09] MEDS ORDERED: ELIQUIS2.5 M1 PO (11:50)
[2021-02-09] MEDS ORDERED: METOPROLOL SUCC25 MG PO (11:51)
--- NOTE | 2021-02-09 15:30 | NUR ---
1350-Rec'd pt from ED, aox4, c/o chronic back pain which she medicates with Oxycodone-Acetaminophen 10-325mg q6hrs prn, administered a dose. Pt is A-fib rvr when she's moving but SR with rate of 80's to 90's when she's in bed. Cardizem PO dose was administered at 1405 and the drip/infusion was turned off at 1505. BP is stable, pt is satting 98% on RA, lungs are clear bilaterally. Pt is one person assist to bathroom and bedside commode. Dr. Pennington was at bedside to assess pt, soumya continuet to monitor pt.
[2021-02-09] MEDS ORDERED: CYCL0.05OP BOTHEYES (20:28)
[2021-02-09] MEDS ORDERED: Percocet 10-321 EACH PO (20:29)
--- NOTE | 2021-02-09 21:05 | NUR ---
ASSUMED CARE OF PATIENT AT APPROXIMATELY 1900 FROM RG Jaimes RN. PATIENT ALERT AND ORIENTED X4; REPORTS CHRONIC PAIN IN BACK; REFUSES HEAT OR ICE APPLICATION AND REQUESTS PO MEDICATION; WILL MEDICATED PER EMAR. PATIENT DENIES NUMBNESS, TINGLING, DIZZINESS OR NAUSEA. PATIENT ONE ASSIST W/ FWW TO BATHROOM DUE TO CORDS. NPO AT MIDNIGHT FOR PACEMAKER IN AM. SR W/ 1ST DEGREE ON TELE; OXYGEN SATURATION ABOVE 90% ON ROOM AIR.
--- NOTE | 2021-02-10 00:45 | NUR ---
DR. CELIS NOTIFIED THAT PATIENT REQUESTS TO BE DNR NOT FULL CODE AND PATIENT WOULD LIKE 1MG PO ATIVAN BEFORE PACEMAKER PLACEMENT 02/10; ORDERS RECIEVED.
[2021-02-10 03:47] LABS: BASOPHILS ABSOLUTE AUTO 0.06 K/mm3 (0.00-0.23); BASOPHILS PERCENT AUTO 1 % (0-2); EOSINOPHILS PERCENT AUTO 3 % (0-6); Hematocrit 41.8 % (33.0-51.0); IMMATURE GRAN ABSOLUTE AUTO 0.01 K/mm3 (0.00-0.10); IMMATURE GRAN PERCENT AUTO 0 % (0-1); LYMPHOCYTES ABSOLUTE AUTO 3.59 K/mm3 (0.84-5.20); LYMPHOCYTES PERCENT AUTO 48 % (21-46); MONOCYTES ABSOLUTE AUTO 0.55 K/mm3 (0.16-1.47); MONOCYTES PERCENT AUTO 7 % (4-13); Mean Corpuscular HGB 32.9 pg (26.0-34.0); Mean Corpuscular HGB Conc 33.5 g/dL (31.5-36.5); Mean Corpuscular Volume 98 fL (80-100); Mean Platelet Volume 9.9 fL (9.1-12.4); NEUTROPHILS ABSOLUTE AUTO 3.04 K/mm3 (1.96-9.15); NEUTROPHILS PERCENT AUTO 41 % (41-73); Platelet Count 173 K/mm3 (150-400); RDW Coefficient Variation 12.4 % (11.7-14.2); RDW Standard Deviation 44.8 fL (35.1-46.3); Red Blood Cell Count 4.26 M/mm3 (3.80-5.20); White Blood Cell Count 7.45 K/mm3 (4.00-11.30)
[2021-02-10 04:02] LABS: Bun/Creatinine Ratio 16.7 (12.0-20.0); Calcium, Blood 8.6 mg/dL (8.5-10.1); Creatinine, Blood 0.96 mg/dL (0.40-1.00); Potassium, Blood 3.9 mmol/L (3.5-5.5)
--- NOTE | 2021-02-10 06:09 | NUR ---
PATIENT SLEPT ABOUT SEVEN HOURS LAST NIGHT; MEDICATED FOR PAIN. NO OTHER ACUTE CHANGES TO REPORT.
--- NOTE | 2021-02-10 18:06 | NUR ---
0720-Rec'd pt this morning, aox4, c/o constant back and neck pain which was medicated with Oxycodone as ordered. VSS, afebrile, pt went for pacemaker placement today, left arm sling in place, no acute event this shift, pt requested for her home medication-Restasis eye drop but per pharmacy, they dont have that formulary, made Dr. Pennington and pt aware and for pt to bring her home medication in order to use, will endorse pt care to nipple machine operator RN.
--- NOTE | 2021-02-11 18:29 | NUR ---
0705-Rec'd pt this morning, aox4, SR and sometimes A-fib on the monitor. Pt persistently c/o right neck and back pain which was medicated with Precoset, Dilaudid and Rapidan prn during this shift. Pt has rated her pain as 12 throughout this shift. Made Dr. Pennington aware and he stated he will make some adjustment to the medications, otherwise no event during this shift.
--- NOTE | 2021-02-12 07:15 | NUR ---
AT BEDSIDE REPORT, LOOKED AT DRESSING WITH GAUGE AND WEIGH MACHINE ADJUSTER RN. PEELED OFF SOME OF THE NONTRANSPARENT TAPE SO THAT I COULD VISUALIZE DRESSING. SMALL AMOUNT OF TEGADERM WAS PEELED UP AND MODERATE AMOUNT OF BLOOD DRAINED FROM SITE. COVERED SITE WITH NEW TEGADERM. OUTLINED BLOOD IN DRESSING WITH SHARPIE SO I COULD VISUALIZE IF THERE WAS MORE BLEEDING. GAUGE AND WEIGH MACHINE ADJUSTER RN STATES THERE WAS ONLY A SMALL INCREASE SINCE DAYSHIFT YESTERDAY. SKIN AROUND SITE IS SOFT BUT VERY TENDER WITH SMALL AMOUNT OF BRUISING NOTED. ICE PLACED TO PATIENT'S LEFT CHEST WALL. CALL LIGHT IN REACH.
--- NOTE | 2021-02-12 08:25 | NUR ---
VENTURA LAI CALLED DR. MORALES AND NOTIFIED HIM THAT PATIENT'S PACEMAKER SITE HAS MODERATE AMOUNT OF OZZING FROM SITE, DRESSING IS SATURATED. DR. MORALES STATES HE WILL COME IN TO SEE HER.
--- NOTE | 2021-02-12 09:20 | NUR ---
DR. MORALES AT BEDSIDE. HE LOOKED AT PATIENT'S DRESSING. HE REMOVED TEGADERM AND CHANGED DRESSING. STATES TO MONITOR AND CALL HIM AROUND NOON TO DISCUSS ANY OOZING OR BLEEDING. HOLD DISCHARGE AT THIS TIME AND THEY WILL REEVALUATE AT NOON. ORDERS RECEIVED TO STOP LOVENOX. PATIENT REPORTING PAIN TO SITE RATED 9/10. DR. SIU ALSO AT BEDSIDE, HE DISCUSSED POC WITH DR. MORALES. DISCUSSED PATIENT'S PAIN, ORDERS RECEIVED FOR A ONE TIME DOSE OF DILAUDID. PATIENT AGREEABLE WITH THAT PLAN.
--- NOTE | 2021-02-12 12:17 | NUR ---
CALLED DR. MORALES. NOTIFIED HIM PATIENT HAD SMALL AMOUNT OF BLEEDING FROM DRESSING, HER ARMPIT WAS COVERED WITH WET BLOOD. DR. MORALES ORDERED TO APPLY PRESSURE DRESSING OVER THE CURRENT DRESSING THAT IS ON THE PACEMAKER INSERTION SITE. DR. MORALES STATES TO HOLD LOVENOX AND NO ELIQUIS. HE STATES THAT PATIENT WILL NOT BE DISCHARGED TODAY. STATES HE WILL REEVALUATE IN THE MORNING.
--- NOTE | 2021-02-12 13:17 | NUR ---
CALLED DR. MORALES. NOTIFIED HIM THAT I WAS PLACING THE PRESSURE DRESSING I NOTICED THAT APPROXIMATELY 75% OF THE GAUZE BELOW THE TEGADERM THAT HE HAD PLACED THIS MORNING HAD NEW BLOOD POOLING UNDERNEATH IT. I DID PLACE THE PRESSURE DRESSING OVER THE SITE. DR. MORALES ASKED ME TO CALL THE DISBURSEMENT CLERK TO ACTIVATE THE OLIVE BRINE TESTER FOR EVACUATION OF HEMATOMA. I CALLED CONRAD, DISBURSEMENT CLERK, AND NOTIFIED HIM. HE SAID HE WOULD NOTIFY OLIVE BRINE TESTER. NOTIFIED CRITICAL CARE REGISTERED NURSE.
--- NOTE | 2021-02-12 13:20 | NUR ---
NOTIFIED PATIENT OF DR. MORALES'S PLAN TO TAKE PATIENT TO THE PLANT PHYSIOLOGY TEACHER TO EVACUATE HEMATOMA. SHE SAID "I HATE ALL THIS CHANGING" AND SAID "IF I'M GOING BACK TO THE PLANT PHYSIOLOGY TEACHER, I NEED THE ANXIETY MEDICATION LIKE I HAD BEFORE." SHE IS AGREEABLE TO GO BACK TO THE PLANT PHYSIOLOGY TEACHER.
--- NOTE | 2021-02-12 13:38 | NUR ---
CONRAD, BUTTON STATION WORKER, CALLED AND SAID THAT DR. SMALL HAS CASES SCHEDULED IN THE UX CONSULTANT UNTIL [facility]. HE SAID DR. MORALES COULD CALL DR. SMALL AND SEE IF HE COULD GET THIS CASE IN. CALLED DR. MORALES AND NOTIFIED HIM. HE SAID HE WOULD CALL DR. SMALL.
--- NOTE | 2021-02-12 13:44 | NUR ---
CALLED DR. SIU AND UPDATED HIM REGARDING PATIENT'S BLEEDING AND PLAN TO GO BACK TO HAIR BOILER OPERATOR. NOTIFIED HIM PATIENT REQUESTING ATIVAN PRIOR TO PROCEDURE SHE RECEIVED BEFORE THE LAST PROCEDURE. ORDERS RECEIVED, SEE EMAR.
--- NOTE | 2021-02-12 15:15 | NUR ---
PATIENT DOWN TO WILDLIFE ECOLOGIST FOR PROCEDURE.
--- NOTE | 2021-02-12 17:20 | NUR ---
KODYT RETURNED TO ROOM FROM DELI CLERK. REPORT RECEIVED FROM MEÑO LAI. PATIENT A/OX3, DENIES PAIN AT THIS TIME. PRESSURE DRESSING NOTED TO LEFT CHEST. NO S/S BLEEDING NOTED. PATIENT AWARE OF POST OP VITAL REQUIREMENTS. ASKING TO REST IN BED AT THIS TIME. CALL LIGHT IN REACH.
--- NOTE | 2021-02-12 18:23 | NUR ---
CALLED DR. MORALES. NOTIFIED HIM PATIENT CONVERTED TO AFIB, HEART RATE IN THE 120'S, TOUCHING 140'S AT TIMES. HIS NOTE SAYS SHE SHOULD HAVE METOPROLOL BID BUT SHE ONLY HAS IT ORDERED DAILY. HE STATES HE WILL ADDRESS METOPROLOL TOMORROW. ORDERS RECEIVED FOR AMIODARONE 150 MG IV BOLUS AND THEN AMIODARONE CONTINUOUS DRIP PER PROTOCOL X 24 HOURS.
--- NOTE | 2021-02-12 19:35 | NUR ---
SHIFT SUMMARY: PATIENT A/OX3. HAD BLEEDING FROM PACEMAKER INSERTION SITE AND WAS TAKEN TO CERTIFIED INDUSTRIAL HYGIENIST TO EVACUATE HEMATOMA. PRESSURE DRESSING IN PLACE. CONVERTED TO AFIB THIS EVENING, HEART RATE IN THE 120'S. AMIODARONE DRIP STARTED. UP TO BATHROOM WITH SBA AND FWW. MEDICATED FOR PAIN PER EMAR. HOLD ALL ANTICOAGULANTS PER DR. MORALES. REPORT GIVEN TO ONCOMING RN.
--- NOTE | 2021-02-13 09:54 | NUR ---
CARE ASSUMPTION PT A&O X4. PT C/O 02/06 L "SHOULDER & BACK" PAIN. PAIN MEDICATED W/ MEDICATION PER EMAR W/ IMPROVEMENT TO 01/07. PT DESCRIBES PAIN "SHARP PRESSURE, PIERCING, ALMOST BURNING." PRESSURE DRESSING REMAINS IN PLACE TO L CHEST WALL PACER INSERTION SITE. DRESSING C/D/I W/ NO NOTED REDNESS, SWELLING, OR BLEEDING. PT VSS. MONITOR SHOWING OCCASSIONAL PACING, HR 80's. SPO2 > 92% ON RA. AMIO GTT INFUSING PER ORDERS. WILL CONTINUE TO MONITOR & PROVIDE CARE.
[2021-02-13] MEDS ORDERED: METO25 PO (16:28)
--- NOTE | 2021-02-13 17:36 | NUR ---
DISCHARGE NOTE PT A&O X4. VSS. SPO2 > 92% ON RA. MD MORALES TO PT BEDSIDE THIS AM W/ REMOVAL OF PACER DRESSING. SITE CLEAN & DRY W/ NO NEW BLEEDING & NO SWELLING. AMIO GTT DC'd TODAY @ APPROX 1100 W/ PT MAINTAINING HR 80's. MONITOR SHOWING OCCASSIONAL PACING W/ UNDERLYING SR. NO OTHER EVENTS BEYOND PAIN MANAGEMENT REQUIREMENTS. MD SIU W/ NEW ORDER FOR PRN PO OXYCODONE Q4H TO CONTINUE @ HOME. PT FRIEND WHO IS A CAREGIVER TO PT RM TO HELP PT DRESS & DISCHARGE HOME. DISCHARGE INSTRUCTIONS REVIEWED W/ PT & DISCHARGE PACKET SENT HOME W/ PT. PT TAKEN OUT BY PCT IN A WHEELCHAIR W/ FRIEND & BELONGINGS.
== END 2021-02-13 17:15 | disposition home or self-care (01) | DRG 243 ==
LOC: ER 05:32 → ERHOLD 08:14 → PCU 08:14
PROVIDERS: Emergency Medicine; ADMIT Internal Medicine
PROC: 0JH606Z Insertion of Pacemaker, Dual Chamber into Chest Subcutaneous Tissue and Fascia, Open Approach (ICD-10-PCS; principal; 2021-02-10)
PROC: 02HK3JZ Insertion of Pacemaker Lead into Right Ventricle, Percutaneous Approach (ICD-10-PCS; 2021-02-10)
PROC: 02H63JZ Insertion of Pacemaker Lead into Right Atrium, Percutaneous Approach (ICD-10-PCS; 2021-02-10)
PROC: 0JC60ZZ Extirpation of Matter from Chest Subcutaneous Tissue and Fascia, Open Approach (ICD-10-PCS; 2021-02-12)
DX: I49.5 Sick sinus syndrome (principal); L76.32 Postprocedural hematoma of skin and subcutaneous tissue following other procedure; Z20.822 Contact with and (suspected) exposure to COVID-19; I48.0 Paroxysmal atrial fibrillation; Z66 Do not resuscitate; I25.10 Atherosclerotic heart disease of native coronary artery without angina pectoris; E78.5 Hyperlipidemia, unspecified; N18.30 Chronic kidney disease, stage 3 unspecified; E03.9 Hypothyroidism, unspecified; F32.A Depression, unspecified; I12.9 Hypertensive chronic kidney disease with stage 1 through stage 4 chronic kidney disease, or unspecified chronic kidney disease; I44.0 Atrioventricular block, first degree; G89.4 Chronic pain syndrome; Z96.641 Presence of right artificial hip joint; I25.2 Old myocardial infarction; Z79.01 Long term (current) use of anticoagulants; Z79.899 Other long term (current) drug therapy; Z88.8 Allergy status to other drugs, medicaments and biological substances; Z95.5 Presence of coronary angioplasty implant and graft; Z98.890 Other specified postprocedural states; Z90.89 Acquired absence of other organs; Y83.8 Other surgical procedures as the cause of abnormal reaction of the patient, or of later complication, without mention of misadventure at the time of the procedure
CPT/HCPCS: 33208; 35820; 36415; 71046; 80048; 80053; 83735; 84100; 84443; 84484; 85025; 93005; 93010; 96374; 96376; 99152; 99153; 99285-25; A9270; C1781; C1785; C1894; C1898; J0282; J0690; J1170; J1580; J1644; J1650; J2250; J3010; J7030; J7040; J7060; U0004

== ENCOUNTER 2021-02-24 09:30 | Inpatient (IN) | payer MEDICARE, BC, OTHER ==
[~2021-02-24] VITALS: Ht 165.1 cm; Wt 57.0 kg
[~2021-02-24 09:30] MED LIST changes: +ELIQUIS2.5 M1 PO; +METOPROLOL SUCC25 MG PO; +OXYCODONE-ACET1 EAC2 PO
[2021-02-24 11:01] LABS: BASOPHILS ABSOLUTE AUTO 0.01 K/mm3 (0.00-0.23); BASOPHILS PERCENT AUTO 0 % (0-2); EOSINOPHILS PERCENT AUTO 0 % (0-6); Hematocrit 36.6 % (33.0-51.0); IMMATURE GRAN ABSOLUTE AUTO 0.06 K/mm3 (0.00-0.10); IMMATURE GRAN PERCENT AUTO 1 % (0-1); LYMPHOCYTES ABSOLUTE AUTO 0.81 K/mm3 (0.84-5.20); LYMPHOCYTES PERCENT AUTO 7 % (21-46); MONOCYTES ABSOLUTE AUTO 0.28 K/mm3 (0.16-1.47); MONOCYTES PERCENT AUTO 3 % (4-13); Mean Corpuscular HGB 32.5 pg (26.0-34.0); Mean Corpuscular HGB Conc 32.8 g/dL (31.5-36.5); Mean Corpuscular Volume 99 fL (80-100); Mean Platelet Volume 10.1 fL (9.1-12.4); NEUTROPHILS ABSOLUTE AUTO 9.87 K/mm3 (1.96-9.15); NEUTROPHILS PERCENT AUTO 90 % (41-73); Platelet Count 202 K/mm3 (150-400); RDW Coefficient Variation 13.4 % (11.7-14.2); RDW Standard Deviation 48.2 fL (35.1-46.3); Red Blood Cell Count 3.69 M/mm3 (3.80-5.20); White Blood Cell Count 11.03 K/mm3 (4.00-11.30)
[2021-02-24 11:29] LABS: Alanine Aminotransfer (ALT/SGP 25 U/L (12-78); Albumin, Blood 3.3 g/dL (3.4-5.0); Albumin/Globulin Ratio 0.9 (0.8-1.8); Alk Phos 149 U/L (50-136); Anion Gap 7 mmol/L (6-16); Aspartate Aminotrans (AST/SGOT 30 U/L (12-37); Bilirubin, Total 0.6 mg/dL (0.1-1.0); Blood Urea Nitrogen 30 mg/dL (8-24); Bun/Creatinine Ratio 25.4 (12.0-20.0); CO2, Blood 23 mmol/L (21-32); Calcium, Blood 8.5 mg/dL (8.5-10.1); Chloride, Blood 104 mmol/L (98-108); Creatinine, Blood 1.18 mg/dL (0.40-1.00); Globulin, Blood 3.6 g/dL (2.2-4.0); Glomerular Filtration Rate 44 (60-); Glucose, Blood 127 mg/dL (70-99); Magnesium, Blood 1.8 mg/dL (1.6-2.4); Potassium, Blood 4.3 mmol/L (3.5-5.5); Sodium, Blood 134 mmol/L (136-145); Total Protein, Blood 6.9 g/dL (6.4-8.2); Troponin I <0.015 ng/mL (0.000-0.040)
[2021-02-24] MEDS ORDERED: ELIQUIS2.5 M1 PO (13:10)
[2021-02-24] MEDS ORDERED: AMLODIPINE BESYL5 MG PO (13:11)
[2021-02-24] MEDS ORDERED: METOPROLOL SUCC25 MG PO (13:11)
--- NOTE | 2021-02-24 18:28 | NUR ---
SHIFT SUMMARY; NEW ADMIT FROM ER. A/A/OX4. S/P PACEMAKER PLACEMENT 02/11/21. INCISION INTACT AND DRY. REDNESS TO AREA, PT STATES HAD A REACTION TO STERI STRIPS AND SKIN IS IMPROVING. AMIO DRIP ON ARRIVAL AT 33.3/ML. NS AT 100ML/HR, DENIES CHEST PAIN OR SOB. REPOSTIONS SELF IN BED, SBA TO RESTROOM NEEDED. WILL CONTINUE TO TREAT AND MONITOR UNTIL CHANGE OF SHIFT.
--- NOTE | 2021-02-25 03:44 | NUR ---
PT CURRENTLY V-PACED AT 60. PER CN, CONTINUE AMIODARONE GTT. MING DENG
--- NOTE | 2021-02-25 06:25 | NUR ---
CALL PLACED TO HARSHAL SEPULVEDA PT NOW AFIB/VPACED ON DEMAND, IN THE 60'S. ORDERS REC'D MING DENG
[2021-02-25 06:30] LABS: BASOPHILS ABSOLUTE AUTO 0.03 K/mm3 (0.00-0.23); BASOPHILS PERCENT AUTO 1 % (0-2); EOSINOPHILS ABSOLUTE AUTO 0.07 K/mm3 (0.00-0.68); EOSINOPHILS PERCENT AUTO 1 % (0-6); Hematocrit 33.8 % (33.0-51.0); Hemoglobin 10.8 g/dL (11.5-16.0); IMMATURE GRAN ABSOLUTE AUTO 0.03 K/mm3 (0.00-0.10); IMMATURE GRAN PERCENT AUTO 1 % (0-1); LYMPHOCYTES ABSOLUTE AUTO 2.24 K/mm3 (0.84-5.20); LYMPHOCYTES PERCENT AUTO 34 % (21-46); MONOCYTES PERCENT AUTO 8 % (4-13); Mean Corpuscular HGB 32.7 pg (26.0-34.0); Mean Corpuscular Volume 102 fL (80-100); Mean Platelet Volume 10.5 fL (9.1-12.4); NEUTROPHILS ABSOLUTE AUTO 3.69 K/mm3 (1.96-9.15); NEUTROPHILS PERCENT AUTO 56 % (41-73); Platelet Count 152 K/mm3 (150-400); RDW Coefficient Variation 13.5 % (11.7-14.2); RDW Standard Deviation 50.4 fL (35.1-46.3); White Blood Cell Count 6.56 K/mm3 (4.00-11.30)
[2021-02-25 07:05] LABS: Anion Gap 3 mmol/L (6-16); Blood Urea Nitrogen 26 mg/dL (8-24); Bun/Creatinine Ratio 24.1 (12.0-20.0); CO2, Blood 26 mmol/L (21-32); Calcium, Blood 7.7 mg/dL (8.5-10.1); Chloride, Blood 109 mmol/L (98-108); Creatinine, Blood 1.08 mg/dL (0.40-1.00); Digoxin (Lanoxin) 0.83 ug/mL (0.80-2.00); Glomerular Filtration Rate 48 (60-); Glucose, Blood 95 mg/dL (70-99); Potassium, Blood 4.2 mmol/L (3.5-5.5); Sodium, Blood 138 mmol/L (136-145)
--- NOTE | 2021-02-25 07:17 | NUR ---
AMIODORONE GTT OFF.
--- NOTE | 2021-02-25 09:45 | NUR ---
DEVICE INTERROGATION DONE PER DR. LUKE ORDER. NEW DEVICE IMPLANT 02/10/21. PT HOSPITALIZED FOR ATRIAL FIB/FLUTTER. EGM SHOWS SINUS WITH ATRIAL PACED. NORMAL FUNCTIONING DUAL CHAMBER PACEMAKER. INFORMATION GIVEN TO STUART LAI AND DR. LUKE. REPORT ON CHART.
--- NOTE | 2021-02-25 11:39 | NUR ---
ASSUMPTION OF CARE Received report from off going RN. Pt is resting in bed watching TV. She denies any chest pain or SOB her VSS and she is paced @ 60. She is able to make her needs known and calls for help when needed.
--- NOTE | 2021-02-25 11:40 | NUR ---
REPORT GIVEN TO ORAL LAI.
--- NOTE | 2021-02-25 11:55 | NUR ---
UPDATE 02/25/21: 85 YOF PRESENTED TO THE ED WITH C/O PALPITATIONS X 24 HOURS ASSOCIATED WITH SOB. NOTED TO BE IN A-FLUTTER IN ED WITH RVR. RECENT HOSPITALIZATION 01/30 - 02/01 FOR SEVERE BRADYCARDIA. RE-ADMIT ON 02/09 - 02/13 AFIB WITH RVR. CARDIOLOGY ANTICIPATING TO SIGN OFF ON DISCHARGE THIS AFTERNOON IF SHE REMAINS IN THE CURRENT RHYTHM. IN ANTICIPATION OF PATIENT DISCHARGING, PT. SCHEDULED FOR HOSPITAL F/U WITH [facility] ON 03/01/21 AT 12PM. PLAN TO DISCUSS HOME HEALTH WITH PT. IF SHE IS HOME BOUND OUTSIDE OF APPOINTMENTS, NURSING WOULD LIKELY BE BENEFICIAL FOR HER. [facility] PREVIOUSLY. WILL ASSIST PT. IN SCHEDULING A SOONER CARDIOLOGY F/U, IT IS NOTED IN [facility] CHART THAT F/U IS IN MARCH.
[2021-02-25] MEDS ORDERED: Amiodarone HCl200 MG PO (14:15)
[2021-02-25] MEDS ORDERED: ASPI81CH PO (14:16)
--- NOTE | 2021-02-25 14:20 | NUR ---
Pt has been dcd home per hospitalist and cardiology. All instructions/meds were reviewed with the pt and she verbalized and understanding. The med rec was faxed to [facility] per pt request. IV was removed with no issues. All personal belongings sent with the pt and her friend is picking her up at the entrance. Pt assisted out to main entrance and stable upon DC.
== END 2021-02-25 14:34 | disposition home or self-care (01) | DRG 309 ==
LOC: ER 09:30 → PCU 09:31
PROVIDERS: Emergency Medicine; Internal Medicine Cardiovascular Disease; ADMIT Hospitalist
DX: I48.92 Unspecified atrial flutter (principal); E87.1 Hypo-osmolality and hyponatremia; I48.20 Chronic atrial fibrillation, unspecified; E78.5 Hyperlipidemia, unspecified; E03.9 Hypothyroidism, unspecified; I49.5 Sick sinus syndrome; I25.10 Atherosclerotic heart disease of native coronary artery without angina pectoris; F41.9 Anxiety disorder, unspecified; Z96.641 Presence of right artificial hip joint; G89.4 Chronic pain syndrome; E87.6 Hypokalemia; N18.9 Chronic kidney disease, unspecified; D64.9 Anemia, unspecified; I47.1 Supraventricular tachycardia; Z95.5 Presence of coronary angioplasty implant and graft; Z98.890 Other specified postprocedural states; Z95.0 Presence of cardiac pacemaker; I25.2 Old myocardial infarction; Z90.49 Acquired absence of other specified parts of digestive tract; Z90.89 Acquired absence of other organs; Z90.710 Acquired absence of both cervix and uterus; Z88.8 Allergy status to other drugs, medicaments and biological substances; Z79.899 Other long term (current) drug therapy; Z79.01 Long term (current) use of anticoagulants
CPT/HCPCS: 36415; 71045; 80048; 80053; 80162; 83735; 84484; 85025; 93005; 93010; 93280; 96365; 96375; 96376; 99285-25; A9270; G0378; J0282; J1160; J3010; J7030; J7060

== ENCOUNTER 2021-03-11 23:46 | Observation (INO) | payer MEDICARE, BC ==
[~2021-03-11] VITALS: Ht 165.1 cm; Wt 54.9 kg
[~2021-03-11 23:46] MED LIST changes: +AMLODIPINE BESYL5 MG PO; +ASPI81CH PO; +Amiodarone HCl200 MG PO
[2021-03-12 00:37] LABS: BASOPHILS ABSOLUTE AUTO 0.04 K/mm3 (0.00-0.23); BASOPHILS PERCENT AUTO 1 % (0-2); EOSINOPHILS ABSOLUTE AUTO 0.57 K/mm3 (0.00-0.68); EOSINOPHILS PERCENT AUTO 8 % (0-6); Hematocrit 38.1 % (33.0-51.0); Hemoglobin 12.6 g/dL (11.5-16.0); IMMATURE GRAN ABSOLUTE AUTO 0.03 K/mm3 (0.00-0.10); IMMATURE GRAN PERCENT AUTO 0 % (0-1); LYMPHOCYTES ABSOLUTE AUTO 3.17 K/mm3 (0.84-5.20); LYMPHOCYTES PERCENT AUTO 41 % (21-46); MONOCYTES ABSOLUTE AUTO 0.62 K/mm3 (0.16-1.47); MONOCYTES PERCENT AUTO 8 % (4-13); Mean Corpuscular HGB 32.3 pg (26.0-34.0); Mean Corpuscular HGB Conc 33.1 g/dL (31.5-36.5); Mean Corpuscular Volume 98 fL (80-100); Mean Platelet Volume 9.6 fL (9.1-12.4); NEUTROPHILS ABSOLUTE AUTO 3.22 K/mm3 (1.96-9.15); NEUTROPHILS PERCENT AUTO 42 % (41-73); Platelet Count 165 K/mm3 (150-400); RDW Coefficient Variation 13.3 % (11.7-14.2); RDW Standard Deviation 48.3 fL (35.1-46.3); White Blood Cell Count 7.65 K/mm3 (4.00-11.30)
[2021-03-12 00:57] LABS: Alanine Aminotransfer (ALT/SGP 31 U/L (12-78); Albumin, Blood 3.6 g/dL (3.4-5.0); Albumin/Globulin Ratio 1.1 (0.8-1.8); Alk Phos 177 U/L (50-136); Anion Gap 8 mmol/L (6-16); Aspartate Aminotrans (AST/SGOT 26 U/L (12-37); Bilirubin, Total 0.4 mg/dL (0.1-1.0); Blood Urea Nitrogen 28 mg/dL (8-24); Bun/Creatinine Ratio 24.8 (12.0-20.0); CO2, Blood 24 mmol/L (21-32); Calcium, Blood 8.6 mg/dL (8.5-10.1); Chloride, Blood 107 mmol/L (98-108); Creatinine, Blood 1.13 mg/dL (0.40-1.00); Globulin, Blood 3.2 g/dL (2.2-4.0); Glomerular Filtration Rate 46 (60-); Glucose, Blood 111 mg/dL (70-99); Potassium, Blood 3.9 mmol/L (3.5-5.5); Sodium, Blood 139 mmol/L (136-145); Total Protein, Blood 6.8 g/dL (6.4-8.2); Troponin I <0.015 ng/mL (0.000-0.040)
[2021-03-12 06:59] LABS: SARS-Cov-2 (COVID-19) PCR, MMC NEGATIVE (NEGATIVE)
[2021-03-12] MEDS ORDERED: AMLO5 PO (15:02)
[2021-03-12] MEDS ORDERED: ALLEGRA ALLERG180 MG PO (15:03)
[2021-03-12] MEDS ORDERED: Triamcinolone A15 G3 TOP (15:03)
== END 2021-03-12 15:35 | disposition home or self-care (01) ==
LOC: ER 23:46 → ERHOLD 23:47
PROVIDERS: Student in an Organized Health Care Education/Training Program; ADMIT Internal Medicine
DX: I16.0 Hypertensive urgency (principal); I25.10 Atherosclerotic heart disease of native coronary artery without angina pectoris; N18.32 Chronic kidney disease, stage 3b; I48.0 Paroxysmal atrial fibrillation; L50.9 Urticaria, unspecified; E03.9 Hypothyroidism, unspecified; I49.5 Sick sinus syndrome; Z66 Do not resuscitate; Z95.0 Presence of cardiac pacemaker; Z88.8 Allergy status to other drugs, medicaments and biological substances; Z79.01 Long term (current) use of anticoagulants; Z79.82 Long term (current) use of aspirin; Z79.899 Other long term (current) drug therapy; Z95.5 Presence of coronary angioplasty implant and graft; Z20.822 Contact with and (suspected) exposure to COVID-19
CPT/HCPCS: 36415; 71045; 80053; 84484; 85025; 93005; 93010; 99285-25; A9270; G0378; J7512; U0004

== ENCOUNTER 2021-03-15 04:44 | Emergency (ER) | payer MEDICARE, BC ==
[~2021-03-15] VITALS: Ht 165.1 cm; Wt 54.4 kg
[~2021-03-15 04:44] MED LIST changes: +ALLEGRA ALLERG180 MG PO; +Triamcinolone A15 G3 TOP
[2021-03-15 05:46] LABS: BASOPHILS ABSOLUTE AUTO 0.06 K/mm3 (0.00-0.23); BASOPHILS PERCENT AUTO 1 % (0-2); EOSINOPHILS ABSOLUTE AUTO 0.53 K/mm3 (0.00-0.68); EOSINOPHILS PERCENT AUTO 8 % (0-6); Hematocrit 35.7 % (33.0-51.0); Hemoglobin 11.7 g/dL (11.5-16.0); IMMATURE GRAN ABSOLUTE AUTO 0.03 K/mm3 (0.00-0.10); IMMATURE GRAN PERCENT AUTO 0 % (0-1); LYMPHOCYTES ABSOLUTE AUTO 3.19 K/mm3 (0.84-5.20); LYMPHOCYTES PERCENT AUTO 45 % (21-46); MONOCYTES ABSOLUTE AUTO 0.64 K/mm3 (0.16-1.47); MONOCYTES PERCENT AUTO 9 % (4-13); Mean Corpuscular HGB 32.6 pg (26.0-34.0); Mean Corpuscular HGB Conc 32.8 g/dL (31.5-36.5); Mean Corpuscular Volume 99 fL (80-100); NEUTROPHILS ABSOLUTE AUTO 2.66 K/mm3 (1.96-9.15); NEUTROPHILS PERCENT AUTO 37 % (41-73); Platelet Count 172 K/mm3 (150-400); RDW Coefficient Variation 13.3 % (11.7-14.2); RDW Standard Deviation 48.9 fL (35.1-46.3); Red Blood Cell Count 3.59 M/mm3 (3.80-5.20); White Blood Cell Count 7.11 K/mm3 (4.00-11.30)
[2021-03-15 05:56] LABS: Alanine Aminotransfer (ALT/SGP 25 U/L (12-78); Albumin, Blood 3.2 g/dL (3.4-5.0); Alk Phos 139 U/L (50-136); Anion Gap 8 mmol/L (6-16); Aspartate Aminotrans (AST/SGOT 21 U/L (12-37); Bilirubin, Total 0.3 mg/dL (0.1-1.0); Blood Urea Nitrogen 30 mg/dL (8-24); Bun/Creatinine Ratio 24.8 (12.0-20.0); CO2, Blood 24 mmol/L (21-32); Calcium, Blood 8.3 mg/dL (8.5-10.1); Chloride, Blood 108 mmol/L (98-108); Creatinine, Blood 1.21 mg/dL (0.40-1.00); Globulin, Blood 3.1 g/dL (2.2-4.0); Glomerular Filtration Rate 42 (60-); Glucose, Blood 102 mg/dL (70-99); Potassium, Blood 3.8 mmol/L (3.5-5.5); Sodium, Blood 140 mmol/L (136-145); Total Protein, Blood 6.3 g/dL (6.4-8.2); Troponin I <0.015 ng/mL (0.000-0.040)
== END 2021-03-15 07:18 | disposition home or self-care (01) ==
LOC: ER 04:44
PROVIDERS: Emergency Medicine
DX: R07.89 Other chest pain (principal); I10 Essential (primary) hypertension; I25.2 Old myocardial infarction; I48.20 Chronic atrial fibrillation, unspecified; I25.10 Atherosclerotic heart disease of native coronary artery without angina pectoris; E03.9 Hypothyroidism, unspecified; Z88.8 Allergy status to other drugs, medicaments and biological substances; Z79.899 Other long term (current) drug therapy; Z79.01 Long term (current) use of anticoagulants; Z86.73 Personal history of transient ischemic attack (TIA), and cerebral infarction without residual deficits
CPT/HCPCS: 71045; 80053; 83690; 84484; 85025; 93005; 93010; 99285-25

== ENCOUNTER → 2021-08-04 | Outpatient (CLI) | payer MEDICARE, BC | END | disposition home or self-care (01) | LOC: LAB SHORT 09:24 | DX: J02.9 Acute pharyngitis, unspecified (principal) | CPT/HCPCS: 87081 ==

== ENCOUNTER 2022-12-03 16:09 | Observation (INO) | payer MEDICARE, BC ==
[~2022-12-03] VITALS: Ht 165.1 cm; Wt 60.6 kg
[~2022-12-03 16:09] MED LIST changes: -KLOR-CON 1010 MEQ PO
[2022-12-03 16:33] LABS: BASOPHILS ABSOLUTE AUTO 0.04 K/mm3 (0.00-0.23); BASOPHILS PERCENT AUTO 0 % (0-2); EOSINOPHILS ABSOLUTE AUTO 0.04 K/mm3 (0.00-0.68); EOSINOPHILS PERCENT AUTO 0 % (0-6); Hematocrit 36.7 % (33.0-51.0); Hemoglobin 12.6 g/dL (11.5-16.0); IMMATURE GRAN ABSOLUTE AUTO 0.04 K/mm3 (0.00-0.10); IMMATURE GRAN PERCENT AUTO 0 % (0-1); LYMPHOCYTES ABSOLUTE AUTO 1.21 K/mm3 (0.84-5.20); LYMPHOCYTES PERCENT AUTO 12 % (21-46); MONOCYTES ABSOLUTE AUTO 0.21 K/mm3 (0.16-1.47); MONOCYTES PERCENT AUTO 2 % (4-13); Mean Corpuscular HGB 32.6 pg (26.0-34.0); Mean Corpuscular HGB Conc 34.3 g/dL (31.5-36.5); Mean Corpuscular Volume 95 fL (80-100); Mean Platelet Volume 9.8 fL (9.1-12.4); NEUTROPHILS ABSOLUTE AUTO 8.72 K/mm3 (1.96-9.15); NEUTROPHILS PERCENT AUTO 85 % (41-73); Platelet Count 184 K/mm3 (150-400); RDW Coefficient Variation 12.1 % (11.7-14.2); RDW Standard Deviation 42.2 fL (35.1-46.3); Red Blood Cell Count 3.87 M/mm3 (3.80-5.20); White Blood Cell Count 10.26 K/mm3 (4.00-11.30)
[2022-12-03 16:58] LABS: Albumin, Blood 3.8 g/dL (3.4-5.0); Albumin/Globulin Ratio 1.4 (0.8-1.8); Bilirubin, Total 0.4 mg/dL (0.1-1.0); Bun/Creatinine Ratio 21.4 (12.0-20.0); Calcium, Blood 8.7 mg/dL (8.5-10.1); Creatinine, Blood 1.03 mg/dL (0.40-1.00); Globulin, Blood 2.8 g/dL (2.2-4.0); Total Protein, Blood 6.6 g/dL (6.4-8.2)
[2022-12-03] MEDS ORDERED: GABA100 PO (20:07)
[2022-12-03] MEDS ORDERED: METO50ER PO (20:07)
[2022-12-03 21:00] VITALS: BP 132/60
--- NOTE | 2022-12-03 23:02 | NUR ---
ASSUMPTION OF CARE: PATIENT IS A/O X 4. PLEASANT, COOPERATIVE WITH CARE, PLEASANT. LUNGS CLEAR ON RA SPO2 >97% CARDIAC: V PACED CURRENTLY 77 WITH UNDERLINE AFIB WITH OCCASSIONAL PVC, DILT AT 5 WILL BE TURNING OFF SOON. SKIN C/D/I VOIDS SBA FWW TO BATHROOM NO CONCERNS. WILL CONTIUE TO MONITOR VSS
[2022-12-04] VITALS: BP 108/65
[2022-12-04 04:15] VITALS: BP 126/65
--- NOTE | 2022-12-04 06:32 | NUR ---
EOS: PATIENT IS CURRENLTY 70 A PACED, DILT HAS BEEN OFF SINCE ~0015. PATIENT DENIES CHEST PAIN PRESSURE OR SOB. PATIENT ENDORSES MUCH IMPROVEMENT. BLOOD PRESSURE NORMOTENSIVE. AFEBRILE. PAINFUL AT TIMES REQUIRING HOME DOSE OF PAIN MEDICATIONS. NO FURTHER CONCERNS FROM PATIENT OR THIS RN AT THIS TIME. WILL CONTINUE TO MONITOR UNTIL SHIFT CHANGE.
[2022-12-04 08:33] VITALS: BP 121/47
[2022-12-04 11:41] VITALS: BP 135/76
--- NOTE | 2022-12-04 15:20 | NUR ---
DISCHARGE: PT CONTINUES A&Ox4, RESP EVEN AND UNLABORED, A-PACED ON MONITOR W/RATE 60s AT REST. PT DENIES SOB OR CP, AMBULATES W/FWW AND SBA, PARTICPATES W/PT EVAL AND TOLERATES WELL. PT V/U OF DANGER OF IGNITABLE RESOURCES AND DENIES POSSESSION OF OR INTENT TO USE IGNITABLE RESOURCES. PT HAS BEEN CLEARED FOR DISCHARGE HOME. PROVIDER HAS CLEARED PT TO RESUME PT OUTPATIENT, PAPERWORK STATING CLEARANCE HAS BEEN FAXED TO [facility]. ALL IV ACCESS HAS BEEN DC'd WNL. PT DRESSES SELF. PT PROVIDED WITH PAPERWORK AND INSTRUCTION, ALL QUESTIONS HAVE BEEN ANSWERED. PT ESCORTED FROM UNIT VIA W/C W/OUT INCIDENT.
== END 2022-12-04 15:18 | disposition home or self-care (01) ==
LOC: ER 16:09 → PCU 19:21
PROVIDERS: Emergency Medicine; ADMIT Internal Medicine
DX: I48.91 Unspecified atrial fibrillation (principal); I49.5 Sick sinus syndrome; N18.31 Chronic kidney disease, stage 3a; E03.9 Hypothyroidism, unspecified; I12.9 Hypertensive chronic kidney disease with stage 1 through stage 4 chronic kidney disease, or unspecified chronic kidney disease; E78.5 Hyperlipidemia, unspecified; R26.0 Ataxic gait; Z88.8 Allergy status to other drugs, medicaments and biological substances; I25.10 Atherosclerotic heart disease of native coronary artery without angina pectoris; Z79.01 Long term (current) use of anticoagulants
CPT/HCPCS: 71045; 80053; 83735; 83880; 84484; 85025; 93005; 93010; 96365; 96366; 96375; 96376; 97110; 97161; 97530; 99285-25; A9270; G0378; J7030

== ENCOUNTER 2022-12-15 17:07 | Emergency (ER) | payer MEDICARE, BC ==
[~2022-12-15] VITALS: Ht 165.1 cm; Wt 57.6 kg
[~2022-12-15 17:07] MED LIST changes: +GABA100 PO
[2022-12-15 18:09] LABS: BASOPHILS ABSOLUTE AUTO 0.05 K/mm3 (0.00-0.23); BASOPHILS PERCENT AUTO 1 % (0-2); EOSINOPHILS ABSOLUTE AUTO 0.37 K/mm3 (0.00-0.68); EOSINOPHILS PERCENT AUTO 5 % (0-6); Hematocrit 35.9 % (33.0-51.0); IMMATURE GRAN ABSOLUTE AUTO 0.02 K/mm3 (0.00-0.10); IMMATURE GRAN PERCENT AUTO 0 % (0-1); LYMPHOCYTES ABSOLUTE AUTO 2.44 K/mm3 (0.84-5.20); LYMPHOCYTES PERCENT AUTO 36 % (21-46); MONOCYTES ABSOLUTE AUTO 0.52 K/mm3 (0.16-1.47); MONOCYTES PERCENT AUTO 8 % (4-13); Mean Corpuscular HGB 32.2 pg (26.0-34.0); Mean Corpuscular HGB Conc 33.4 g/dL (31.5-36.5); Mean Corpuscular Volume 96 fL (80-100); Mean Platelet Volume 10.1 fL (9.1-12.4); NEUTROPHILS ABSOLUTE AUTO 3.48 K/mm3 (1.96-9.15); NEUTROPHILS PERCENT AUTO 51 % (41-73); Platelet Count 173 K/mm3 (150-400); RDW Coefficient Variation 12.1 % (11.7-14.2); RDW Standard Deviation 42.6 fL (35.1-46.3); Red Blood Cell Count 3.73 M/mm3 (3.80-5.20); White Blood Cell Count 6.88 K/mm3 (4.00-11.30)
[2022-12-15 18:21] LABS: Albumin, Blood 3.5 g/dL (3.4-5.0); Albumin/Globulin Ratio 1.2 (0.8-1.8); Bilirubin, Total 0.2 mg/dL (0.1-1.0); Bun/Creatinine Ratio 19.6 (12.0-20.0); Calcium, Blood 8.5 mg/dL (8.5-10.1); Creatinine, Blood 1.07 mg/dL (0.40-1.00); Globulin, Blood 2.9 g/dL (2.2-4.0); Potassium, Blood 3.9 mmol/L (3.5-5.5); Total Protein, Blood 6.4 g/dL (6.4-8.2)
[2022-12-15 18:39] LABS: International Normalized Ratio 1.1; Prothrombin Time Results 11.5 Sec (9.7-11.5)
[2022-12-15 19:45] VITALS: BP 130/82
== END 2022-12-15 19:59 | disposition home or self-care (01) ==
LOC: ER 17:07
PROVIDERS: Student in an Organized Health Care Education/Training Program
DX: I48.91 Unspecified atrial fibrillation (principal); Z79.01 Long term (current) use of anticoagulants; Z79.899 Other long term (current) drug therapy; Z88.8 Allergy status to other drugs, medicaments and biological substances; Z79.890 Hormone replacement therapy; I25.2 Old myocardial infarction; E03.9 Hypothyroidism, unspecified; Z95.0 Presence of cardiac pacemaker; Z95.5 Presence of coronary angioplasty implant and graft
CPT/HCPCS: 71046; 80053; 83880; 84484; 85025; 85610; 93005; 93010; 99285-25

== ENCOUNTER 2023-01-02 10:16 | Emergency (ER) | payer MEDICARE, BC ==
[~2023-01-02] VITALS: Ht 165.1 cm; Wt 54.4 kg
[2023-01-02 10:35] LABS: Calcium, Ionized (POC) 1.21 mmol/L (1.10-1.46); Chloride (POC) 105 mmol/L (98-108); Glucose (ISTAT POC) 102 mg/dL (70-99); Hemoglobin (POC) 13.6 g/dL (12.0-16.0); Potassium (POC) 3.9 mmol/L (3.5-5.5); Sodium (POC) 141 mmol/L (135-148); Total CO2 (POC) 25 mmol/L (21-32)
[2023-01-02 10:41] LABS: BASOPHILS ABSOLUTE AUTO 0.05 K/mm3 (0.00-0.23); BASOPHILS PERCENT AUTO 1 % (0-2); EOSINOPHILS ABSOLUTE AUTO 0.33 K/mm3 (0.00-0.68); EOSINOPHILS PERCENT AUTO 5 % (0-6); Hematocrit 40.5 % (33.0-51.0); Hemoglobin 13.4 g/dL (11.5-16.0); IMMATURE GRAN ABSOLUTE AUTO 0.02 K/mm3 (0.00-0.10); IMMATURE GRAN PERCENT AUTO 0 % (0-1); LYMPHOCYTES ABSOLUTE AUTO 2.09 K/mm3 (0.84-5.20); LYMPHOCYTES PERCENT AUTO 29 % (21-46); MONOCYTES ABSOLUTE AUTO 0.55 K/mm3 (0.16-1.47); MONOCYTES PERCENT AUTO 8 % (4-13); Mean Corpuscular HGB 32.2 pg (26.0-34.0); Mean Corpuscular HGB Conc 33.1 g/dL (31.5-36.5); Mean Corpuscular Volume 97 fL (80-100); Mean Platelet Volume 9.5 fL (9.1-12.4); NEUTROPHILS ABSOLUTE AUTO 4.19 K/mm3 (1.96-9.15); NEUTROPHILS PERCENT AUTO 58 % (41-73); Platelet Count 162 K/mm3 (150-400); RDW Coefficient Variation 12.3 % (11.7-14.2); RDW Standard Deviation 44.2 fL (35.1-46.3); Red Blood Cell Count 4.16 M/mm3 (3.80-5.20); White Blood Cell Count 7.23 K/mm3 (4.00-11.30)
[2023-01-02 11:00] LABS: Albumin, Blood 3.9 g/dL (3.4-5.0); Albumin/Globulin Ratio 1.2 (0.8-1.8); Bilirubin, Total 0.4 mg/dL (0.1-1.0); Bun/Creatinine Ratio 16.9 (12.0-20.0); Calcium, Blood 9.1 mg/dL (8.5-10.1); Creatinine, Blood 0.95 mg/dL (0.40-1.00); Globulin, Blood 3.2 g/dL (2.2-4.0); Magnesium, Blood 2.2 mg/dL (1.6-2.4); Phosphorus, Blood 2.9 mg/dL (2.5-4.9); Potassium, Blood 3.9 mmol/L (3.5-5.5); Total Protein, Blood 7.1 g/dL (6.4-8.2)
[2023-01-02 11:12] LABS: Free Thyroxine 1.22 ng/dL (0.70-1.60)
[2023-01-02 11:17] LABS: Thyroid Stimulating Hormone 0.431 uIU/mL (0.360-4.800)
[2023-01-02 11:45] VITALS: BP 139/88
== END 2023-01-02 12:25 | disposition home or self-care (01) ==
LOC: ER 10:16
PROVIDERS: Emergency Medicine
DX: I48.91 Unspecified atrial fibrillation (principal); I49.5 Sick sinus syndrome; I25.2 Old myocardial infarction; I25.10 Atherosclerotic heart disease of native coronary artery without angina pectoris; I44.7 Left bundle-branch block, unspecified; E03.9 Hypothyroidism, unspecified; Z88.8 Allergy status to other drugs, medicaments and biological substances; Z79.890 Hormone replacement therapy; Z79.899 Other long term (current) drug therapy; Z79.01 Long term (current) use of anticoagulants; Z95.5 Presence of coronary angioplasty implant and graft; Z95.0 Presence of cardiac pacemaker; Z96.641 Presence of right artificial hip joint
CPT/HCPCS: 80047; 80053; 83735; 84100; 84439; 84443; 85014; 85025; 93005; 93010; 96365; 96374; 96375; 99284-25; A9270; J0282; J3475